=== PATIENT | female | born 1950 | race Caucasian/White ===

== ENCOUNTER → 2017-10-24 09:51 | Outpatient (CLI) | payer OTHER, SELFPAY ==
[2017-10-24 10:28] LABS: Absolute Lymphocyte Count 1.71 X10^3/ul (0.83-4.51); Absolute Neutrophil Count 3.2 X10^3/uL (2.0-7.7); Basophil# 0.02 X10^3/uL; Basophil% 0.4 % (0-1); Eosinophil# 0.17 X10^3/uL; Hematocrit 40.8 % (37-47); Hemoglobin 12.8 g/dl (12.0-15.0); Lymphocyte # 1.71 X10^3/ul (4.0); Lymphocyte % 30.6 % (19-41); Mean Corp Hgb Conc 31.4 g/gl (32-36); Mean Corpuscular Hgb 28.8 pg (27.0-32.0); Mean Corpuscular Volume 91.9 fL (81-99); Mean Platelet Vol. 10.8 fl (6.2-12.0); Monocyte# 0.46 X10^3/uL; Monocyte% 8.2 % (0-10); Neutrophil # 3.23 X10^3/uL (2.7-7.7); Neutrophil % 57.8 % (47-70); Platelet Count 219 K/mm3 (150-450); RBC Distribution Width CV 13.4 % (11.6-14.6); RBC Distribution Width SD 44.2 fl (35.1-43.9); Red Blood Count 4.44 M/mm3 (4.2-5.4); White Blood Count 5.6 K/mm3 (4.4-11.0)
[2017-10-24 10:42] LABS: POSITIVE COUNT NO; POSITIVE DIFFERENTIAL NO; POSITIVE MORPHOLOGY NO
[2017-10-24 10:55] LABS: ALB/GLOB Ratio 1.1 RATIO (0.9-2.4); AST(SGOT) 16 U/L (15-37); Alanine Aminotransfer ALT/SGPT 16 U/L (13-56); Albumin, Serum 3.6 g/dL (3.2-5.0); Alkaline Phosphatase 78 U/L (45-117); Anion Gap 5 (5-15); BUN 20 mg/dL (7-18); BUN/Creat Ratio 21.9 RATIO (10-20); Calcium,Total 8.6 mg/dL (8.5-10.1); Chloride 106 mmol/L (98-107); Creatinine, Serum 0.91 mg/dL (0.55-1.02); EST Glomerular Filtration Rate 65 mL/min (>60); Est Glom Filt Rate - Afr Amer 79 mL/min (>60); Globulin 3.3 g/dL (2.2-4.2); Glucose 94 mg/dL (74-106); Potassium 4.4 mmol/L (3.5-5.1); Protein, Total 6.9 g/dL (6.4-8.2); Sodium Level 140 mmol/L (136-145)
[2017-10-24 11:37] LABS: Vitamin D,25 Hydroxy 31.2 ng/mL (29.95-100.01)
[2017-10-25 04:15] LABS: Hepatitis C Ab <0.1 s/co ratio (0.0-0.9)
== END ==
PROVIDERS: Family Provider Internal Medicine; PCP Internal Medicine; Visit Provider Internal Medicine
DX: Z01.89 Encounter for other specified special examinations (principal); E55.9 Vitamin D deficiency, unspecified; Z79.899 Other long term (current) drug therapy
CPT/HCPCS: 36415; 80053; 82306; 85025; 86803; 86804

== ENCOUNTER 2017-11-26 12:10 | Inpatient (IN) | payer MEDICARE, OTHER, SELFPAY ==
[2017-11-26 12:11] VITALS: BP 163/75; PULSE 72; RESP 16; TEMP 36; O2SAT 98; BMI 25.0
--- NOTE | 2017-11-26 13:09 | CT_ITS ---
STUDY: CT ABDOMEN AND PELVIS WITH CONTRAST REASON FOR EXAM: Female, 67 years old. One week history of nausea, vomiting and diarrhea. RADIATION DOSAGE (If Supplied By Facility): CTDIvol = ( 13.80 ) mGy, DLP = ( 653.11 ) mGycm TECHNIQUE: Transaxial images were obtained from the dome of the diaphragm to the symphysis pubis without oral contrast. 100mL ml of Isovue 300 contrast was administered. Sagittal and coronal images were reconstructed. Individualized dose optimization techniques were used for this CT. COMPARISON: Comparison is made with prior study dated June 22, 2013. FINDINGS: Bilateral breast implants are seen. Stable mild degree of increased markings at the lung bases suggestive of scarring. The visualized portions of the heart are within normal limits. 1 cm cyst in the upper aspect of the right lobe of the liver posteriorly. Increased densities are seen in the gallbladder lumen. This may represent tiny gallstones or possible sludge. Normal spleen. Normal pancreas. Normal bilateral adrenal glands. Normal right kidney. Normal left kidney. Normal visualized stomach. Normal small intestine. There is evidence of circumferential wall thickening of the descending colon with increased markings in the surrounding peritoneal fat. This is suggestive of a colitis. The appendix is visualized and appears normal. There is diffuse atherosclerotic calcification of the abdominal aorta, without a demonstrated aneurysm. Normal inferior vena cava. Normal retroperitoneum. Normal urinary bladder. Evidence of prior right inguinal hernia repair. There are diffuse degenerative changes of the visualized lumbar spine. CT/Abdomen/Pelvis W IV Cont ONLY IMPRESSION: Findings suggest colitis involving the descending colon. Electronically Signed: Og Lin MD at 14:26 EDT Tel [phone], Service support ,
[2017-11-26] MEDS: Morphine 4 MG/ML Syringe IV ×3 (13:22→22:44)
[2017-11-26] MEDS: Ondansetron 4 MG/2 ML Vial IV ×2 (13:22→22:30)
[2017-11-26] MEDS: 0.9% Normal Saline 1,000 ML 1000 ML IV (13:22)
[2017-11-26 13:37] LABS: Absolute Neutrophil Count 5.5 X10^3/uL (2.0-7.7); Basophil# 0.01 X10^3/uL; Basophil% 0.1 % (0-1); Eosinophil# 0.11 X10^3/uL; Eosinophils% 1.5 % (0-5); Hematocrit 37.9 % (37-47); Hemoglobin 12.2 g/dl (12.0-15.0); Lymphocyte % 17.5 % (19-41); Mean Corp Hgb Conc 32.2 g/gl (32-36); Mean Corpuscular Hgb 28.8 pg (27.0-32.0); Mean Corpuscular Volume 89.6 fL (81-99); Mean Platelet Vol. 10.4 fl (6.2-12.0); Monocyte# 0.51 X10^3/uL; Monocyte% 6.9 % (0-10); Neutrophil # 5.48 X10^3/uL (2.7-7.7); Platelet Count 236 K/mm3 (150-450); RBC Distribution Width CV 13.2 % (11.6-14.6); RBC Distribution Width SD 43.3 fl (35.1-43.9); Red Blood Count 4.23 M/mm3 (4.2-5.4); White Blood Count 7.4 K/mm3 (4.4-11.0)
[2017-11-26 13:39] LABS: POSITIVE COUNT NO; POSITIVE DIFFERENTIAL NO; POSITIVE MORPHOLOGY NO
[2017-11-26 13:42] LABS: Lactic Acid 0.7 mmol/L (0.4-2.0)
[2017-11-26 13:43] LABS: ALB/GLOB Ratio 0.9 RATIO (0.9-2.4); AST(SGOT) 16 U/L (15-37); Alanine Aminotransfer ALT/SGPT 21 U/L (13-56); Albumin, Serum 3.4 g/dL (3.2-5.0); Alkaline Phosphatase 78 U/L (45-117); Anion Gap 4 (5-15); BUN 26 mg/dL (7-18); BUN/Creat Ratio 16.7 RATIO (10-20); Calcium,Total 9.2 mg/dL (8.5-10.1); Chloride 105 mmol/L (98-107); Creatinine, Serum 1.56 mg/dL (0.55-1.02); EST Glomerular Filtration Rate 35 mL/min (>60); Est Glom Filt Rate - Afr Amer 43 mL/min (>60); Estimated Creatinine Clearance 30.63 ml/min; Globulin 3.7 g/dL (2.2-4.2); Glucose 98 mg/dL (74-106); Potassium 4.9 mmol/L (3.5-5.1); Protein, Total 7.1 g/dL (6.4-8.2); Sodium Level 139 mmol/L (136-145)
[2017-11-26 14:14] LABS: Prothrombin Time (Protime)PT. 13.1 SECONDS (11.7-14.9)
--- NOTE | 2017-11-26 14:51 | PCM.HP.STD ---
Problem List (1) Colitis Status: Acute (2) personal history of left breast cancer Status: Chronic (3) Depression Status: Chronic Qualifiers: Depression Type: unspecified Qualified Code(s): F32.9 - Major depressive disorder, single episode, unspecified (4) Anxiety Status: Chronic (5) Urinary incontinence Status: Chronic Qualifiers: Urinary Incontinence type: unspecified incontinence Qualified Code(s): R32 - Unspecified urinary incontinence (6) Breast cancer Status: Chronic Qualifiers: Breast location: unspecified site of breast Estrogen receptor status: unspecified Patient sex: female Laterality: left Qualified Code(s): C50.912 - Malignant neoplasm of unspecified site of left female breast (7) Genital pruritus Status: Chronic (8) HTN (hypertension) Status: Chronic Qualifiers: Hypertension type: essential hypertension Qualified Code(s): I10 - Essential (primary) hypertension History of Present Illness Date of Admission: 11/26/17 Chief Complaint: Abdominal pain, N/V/D x 1 week w/ blood in stools/clots The patient is a 67 y/o F w/ PMHx: HTN, Hx L Breast CA s/p mastectomy and R prophylactic mastectomy w/ reconstruction, Anxiety and Depression, Chronic Headaches who presents to the [facility] ED on 11/26/17 with history of ongoing progressively worsening abdominal pain primarily R sided despite CT scan, nausea, emesis, poor oral intake w/ dark blood with stools and now onset frequent clots. She initially thought it was stress secondary to her niece recently passing until onset of maroon stools. She notes similar episode in 2012 with negative c-scope per Dr. Thao at that time. In the ED work-up included T 96.8, heart rate 72, BP 163/75, respiratory rate 16, 98% on room air, CBC with WBC 7.4, hemoglobin 12.2, platelet 236 without market shift, unremarkable coags, CMP with BUN/creatinine 26/1.56, CT abdomen and pelvis with findings suggestive of colitis involving the descending colon. In the emergency room patient administered normal saline, Zofran, morphine, Zosyn. 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 contour deformity superior pole left breast reconstruction personal history of left breast cancer (Chronic) Depression (Chronic) Anxiety (Chronic) Urinary incontinence (Chronic) Breast cancer (Chronic) Genital pruritus (Chronic) Family history of breast cancer (Chronic) late eff radiation lt lateral chest wall (Chronic) late effect radiation left lateral chest wall left lateral chest wall rib pain (Chronic) status dinesh breast implant reconstruction (Chronic) status bilateral breast implants reconstruction acquired absence bilateral breasts (Chronic) PROPHYLACTIC RIGHT BREAST REMOVAL (Chronic) late eff rad lt breast reconstruction (Chronic) late effect radiation left breast reconstruction disproportion reconstructed breasts (Chronic) disproportion reconstructed breasts bilaterally with right asymmetric inframammary fold and left radiation capsular contracture contour deformity superior pole. Allergies meperidine HCl [From Demerol] Allergy (Verified 11/26/17 12:14) Hives tamoxifen [Tamoxifen] Allergy (Verified 11/26/17 12:14) Hives hydrocodone bitartrate [From Vicodin] Adverse Reaction (Verified 11/26/17 12:14) Vomiting hylan G-F 20 [From Synvisc] Adverse Reaction (Verified 11/26/17 12:14) Swelling Home Medications: Ambulatory Orders Medication Instructions Recorded Citalopram Hydrobromide [Celexa] 10 mg PO DAILY 06/07/13 Duloxetine Hcl [Cymbalta] 20 mg PO DAILY 03/06/15 Lisinopril [Zestril] 10 mg PO DAILY 03/06/15 Metoprolol Tartrate [Lopressor 25 mg PO BID 03/06/15 (beta savannah)] fluticasone 50 mcg/actuation nasal 1 spray INTRANASAL DAILY 10/13/17 spray,suspension Docusate Sodium [Colace] 100 mg PO BID PRN PRN 11/26/17 Oxybutynin Chloride [Ditropan Xl] 10 mg PO DAILY 11/26/17 Oxycodone Myristate [Xtampza ER] 13.5 mg PO BID 11/26/17 Tizanidine HCl [Tizanidine HCl] 4 mg PO DAILY PRN PRN 11/26/17 Surgical History: - - Left breast mastectomy, prophylactic right breast mastectomy, reconstructive surgeries, several knee surgeries, I&D hematoma. Psychiatric History: Anxiety, Depression [employer] History: No pertinent [employer] history Lives: Spouse/ Significant Other Smoking Status: Former smoker - Quit 35 years prior. Tobacco Use: Non-smoker Alcohol: None Drugs: None - *Family History Maternal History Items: - - Maternal family history of uterine cancer and thyroid disease. Paternal History Items: No pertinent history Sibling History Items: - - Brother with history of alcoholism, sister with history of depression, thyroid disease and uterine cancer. Review of Systems Constitutional: Reports: Malaise, Weakness, Fatigue. Denies: Chills, Fever, Weight Change HEENT: Denies: Head Aches, Sinus Congestion, Sinus Drainage Cardiovascular: Denies: Chest Pain, Palpitations Respiratory: Denies: Cough, Shortness of breath at rest, Sputum production Gastrointestinal: Reports: Abdominal Pain, Diarrhea, Nausea, Vomiting, - - Dark red stools, clots. Genitourinary: Denies: Dysuria Musculoskeletal: Denies: Joint Pain, Joint Tenderness Skin: Denies: Rash, Wounds Neurological: Denies: Numbness, Tingling, Focal weakness Psychiatric: Reports: Anxiety, Depression. Denies: Homicidal Ideations, Suicidal Ideations Hematologic/ Lymphatic: Denies: Easy Bruising, Easy Bleeding VTE Information - Inpt Only VTE Present on Admission: No VTE Mechan Device Prophylaxis: SCD's VTE Pharm Prophylaxis ordered?: No Patient Problems: Active and Suspected Problems (Last Updated 10/13/17 @ 10:05 by Irene Ramirez) Colitis (Acute) Subjective: Seated upright in the ED bed, NAD, notes mild discomfort currently after pain regimen. Objective: Physical Examination: General: awake, alert, oriented x 3 and cooperative, seated upright in the ED bed in no apparent distress. Skin: normal color, turgor, no icterus, cyanosis. HEENT: AT/NC, EOMI, PERRLA, dry MM, no carotid bruits or JVD noted. Lungs: CTA bilaterally, moderate effort, mild decrease BL bases, no rales, ronchi or wheezing. Heart: Regular rate and rhythm; no gallop, rub audible. Abdomen: soft, mild diffuse, > R and LLQs, ND, hyperactive BS, no HSM. Extremities: no cyanosis, clubbing, or edema. Neurological: patient awake, alert, oriented x 3; cognitive function intact; pupils equally reactive to light and accomodation; cranial nerves II-XII grossly normal, moving all 4 extremities, no focal deficits, strength moderately globally decreased secondary to acute presentation. Psychiatric: affect appears normal, no acute evidence of depressive or anxiety feelings. - Physical Exam Vital Signs Temp Pulse Resp BP Pulse Ox 96.8 F L 72 16 163/75 H 98 11/26/17 12:11 11/26/17 12:11 11/26/17 12:11 11/26/17 12:11 11/26/17 12:11 Oxygen Delivery Method Room Air Weight: 145 lb 8.081 oz Body Mass Index (BMI) 25.0 Microbiology Past 72 Hours 11/26/17 13:05 Stool Occult Blood (KELLY) - Final Stool Occult Blood Positive Laboratory Tests Past 24 Hrs 11/26/17 11/26/17 11/26/17 13:07 13:07 13:07 WBC 7.4 RBC 4.23 Hgb 12.2 Hct 37.9 MCV 89.6 MCH 28.8 MCHC 32.2 RDW 13.2 RDW Differential 43.3 Plt Count 236 MPV 10.4 Immature Gran % (Auto) 0.000 Neut % (Auto) 74.0 H Lymph % (Auto) 17.5 L Curry % (Auto) 6.9 Eos % (Auto) 1.5 Baso % (Auto) 0.1 Absolute Neuts (auto) 5.5 Absolute Lymphs (auto) 1.30 Total Counted Not Reportable PT 13.1 INR 1.0 Sodium 139 Potassium 4.9 Chloride 105 Carbon Dioxide 30.0 Anion Gap 4 L BUN 26 H Creatinine 1.56 H Estim Creat Clear Calc 30.63 Est GFR (MDRD) Af Amer 43 L Est GFR (MDRD) Non-Af 35 L BUN/Creatinine Ratio 16.7 Glucose 98 Lactic Acid Calcium 9.2 Total Bilirubin 0.30 AST 16 ALT 21 Alkaline Phosphatase 78 Total Protein 7.1 Albumin 3.4 Globulin 3.7 Albumin/Globulin Ratio 0.9 Blood Type Antibody Screen 11/26/17 11/26/17 13:07 13:07 WBC RBC Hgb Hct MCV MCH MCHC RDW RDW Differential Plt Count MPV Immature Gran % (Auto) Neut % (Auto) Lymph % (Auto) Curry % (Auto) Eos % (Auto) Baso % (Auto) Absolute Neuts (auto) Absolute Lymphs (auto) Total Counted PT INR Sodium Potassium Chloride Carbon Dioxide Anion Gap BUN Creatinine Estim Creat Clear Calc Est GFR (MDRD) Af Amer Est GFR (MDRD) Non-Af BUN/Creatinine Ratio Glucose Lactic Acid 0.7 Calcium Total Bilirubin AST ALT Alkaline Phosphatase Total Protein Albumin Globulin Albumin/Globulin Ratio Blood Type A POSITIVE Antibody Screen NEGATIVE Assessment/Plan Active and Suspected Problems (Last Updated 10/13/17 @ 10:05 by Irene Ramirez) Colitis (Acute) The patient is a 67 y/o F w/ PMHx: HTN, Hx L Breast CA s/p mastectomy and R prophylactic mastectomy w/ reconstruction, Anxiety and Depression, Chronic Headaches who presents to the [facility] ED on 11/26/17 with history of ongoing progressively worsening abdominal pain primarily R sided despite CT scan, nausea, emesis, poor oral intake w/ dark blood with stools and now onset frequent clots. (1) Acute Descending Colon Colitis w/ Associated GI Bleeding: CT A/P w/ evidence of descending colon colitis. Will admit to [facility], maintain on aggressive hydration, monitor I&Os, maintain NPO status w/ bowel rest, treat with zosyn regimen, PPI, anti-emetics, pain regimen PRN. Consider diet advancement to clears in AM if clinically improved. (2) Acute kidney injury: Secondary to GI losses, poor oral intake. Admission BUN/Cr 26/1.56, prior baseline creatinine noted to be 0.9. Will hydrate, hold nephrotoxic medications and repeat chemistry in AM. If no improvement would plan FeNa assessment. (3) Hx L Breast CA: s/p L mastectomy and R prophylactic mastectomy w/ reconstruction, chronic pain associated w/ radiation. (4) Chronic Pain Syndrome: Maintain on home chronic oxycodone, tizanidine regimen. (5) Anxiety and Depression: She notes taking celexa only as needed and notes taking cymbalta daily. Discussed at length that this was not appropriate usage of this type of medication. She will discontinue PRN usage celexa, continue cymbalta only and if needed she may titrate up with her medical provider. (6) Hypertension: Continue home regimen including metoprolol, hold lisinopril, PRN hydralazine. (7) DVT Prophylaxis: SCDs, defer chemoprophylaxis given recent bloody stools with colitis. Code Visit Inpatient E&M: 64153 Init Hosp L3
--- NOTE | 2017-11-26 15:25 | CM.ED ---
Addendum entered by Loan Gonzalez 11/26/17 15:39: Attempted to assess. Hospitalist at bedside. Assessment not able to be completed at this time. Original Note: Attempted to perform initial assessment. Patient unavailable for interview at this time. Will re-attempt as time allows.
[2017-11-26 15:29] VITALS: BP 149/79; PULSE 71; RESP 14; O2SAT 97
[2017-11-26 15:32] VITALS: BMI 25.0
[2017-11-26 15:36] VITALS: BMI 25.2
--- NOTE | 2017-11-26 16:21 | ED.VISSUMM ---
- ER Visit Summary Date of Service: 11/26/17 Chief Complaint: GI bleed History of Present Illness: The patient is a 32 F who presents with nausea vomiting diarrhea and bloody stools. She became ill 5 days ago. She reports nausea and vomiting as well as diarrhea and loose stools. She initially thought that this may all be stress related. Her niece is recently . She has developed colored stools which have been worsening rather than improving. She reports large clots. The patient does have a prior history of GI bleed but maintained a stable hemoglobin and vital signs. She had a colonoscopy on that admission which was normal. She is not anticoagulated. There is not a family history of ulcerative colitis or Crohn's disease. Physical Examination: Afebrile vitals normal Moist mucous membranes Heart regular rate and rhythm Lungs are clear Abdomen soft nontender Rectal exam nontender with maroon stool Alert Test Results: Normal. Hepatic function INR lactic acid all normal. Hemoccult positive. BUN 26 and creatinine of 1.56 which was normal on prior labs. He of the abdomen and pelvis shows findings consistent with descending colitis. Emergency Department Course and Treatment: Although patient has no fever or leukocytosis given her nausea vomiting and diarrhea and inflammatory changes on CT she was treated with IV Zosyn. She has been given IV fluids. At this time she is hemodynamically stable. Patient will be discussed with hospitalist and admitted. Treatment Plan: [] Disposition: Admit Impression: Colitis Lower GI bleed Acute kidney injury This note was generated with [employer] dictation software. It may contain incorrect words, spelling, and punctuation that were not noted in review of the chart prior to signing ED Disposition - Plan for ED Patient: Disposition: Acute Care Hospital [facility] Chief Complaint: GI Bleed
[2017-11-26] MEDS: 0.9% Normal Saline 1,000 ML 999 ML IV (16:30)
[2017-11-26 16:51] LABS: Magnesium 1.8 mg/dL (1.6-2.6)
[2017-11-26] MEDS: 0.9% Normal Saline 1,000 ML 125 ML IV (17:32)
[2017-11-26 19:39] VITALS: BP 148/88; PULSE 73; RESP 18; TEMP 36.9; O2SAT 96
--- NOTE | 2017-11-26 19:41 | NURSING ---
vitals recorded at 194 were actually done @ 1615 w/ admission
[2017-11-26 20:00] VITALS: O2SAT 94
[2017-11-26] MEDS: Piperacil/Tazobactam 3.375 GM/50 ML ML IV (22:38)
[2017-11-26 22:44] VITALS: PULSE 79
[2017-11-26] MEDS: Metoprolol Tartrate 25 MG Tablet PO (22:44)
[2017-11-26 23:07] VITALS: BP 154/89; PULSE 79; RESP 16; TEMP 36.5; O2SAT 96
[2017-11-27] VITALS (7 sets, daily range): BP systolic 122–160; BP diastolic 75–92; PULSE 64–76; RESP 16–18; TEMP 36.8–37; O2SAT 91–98
[2017-11-27] MEDS: 0.9% Normal Saline 1,000 ML 125 ML IV ×2 (02:24→09:20)
[2017-11-27] MEDS: Morphine 4 MG/ML Syringe IV ×2 (05:35→15:49)
[2017-11-27] MEDS: proMETHazine 25 MG/ML Syringe 12.5 MG IV (05:35)
[2017-11-27] MEDS: Piperacil/Tazobactam 3.375 GM/50 ML ML IV (05:36)
[2017-11-27 06:17] LABS: Absolute Lymphocyte Count 1.27 X10^3/ul (0.83-4.51); Absolute Neutrophil Count 4.2 X10^3/uL (2.0-7.7); Basophil# 0.02 X10^3/uL; Basophil% 0.3 % (0-1); Eosinophil# 0.16 X10^3/uL; Eosinophils% 2.6 % (0-5); Hematocrit 34.4 % (37-47); Lymphocyte # 1.27 X10^3/ul (4.0); Lymphocyte % 20.5 % (19-41); Mean Corpuscular Hgb 29.3 pg (27.0-32.0); Mean Corpuscular Volume 91.7 fL (81-99); Mean Platelet Vol. 10.3 fl (6.2-12.0); Monocyte# 0.57 X10^3/uL; Monocyte% 9.2 % (0-10); Neutrophil # 4.19 X10^3/uL (2.7-7.7); Neutrophil % 67.4 % (47-70); Platelet Count 212 K/mm3 (150-450); RBC Distribution Width SD 42.6 fl (35.1-43.9); Red Blood Count 3.75 M/mm3 (4.2-5.4); White Blood Count 6.2 K/mm3 (4.4-11.0)
[2017-11-27 06:18] LABS: POSITIVE COUNT NO; POSITIVE DIFFERENTIAL NO; POSITIVE MORPHOLOGY NO
[2017-11-27 06:38] LABS: Anion Gap 7 (5-15); BUN 16 mg/dL (7-18); BUN/Creat Ratio 11.9 RATIO (10-20); Calcium,Total 8.1 mg/dL (8.5-10.1); Chloride 113 mmol/L (98-107); Creatinine, Serum 1.34 mg/dL (0.55-1.02); EST Glomerular Filtration Rate 42 mL/min (>60); Est Glom Filt Rate - Afr Amer 51 mL/min (>60); Estimated Creatinine Clearance 35.66 ml/min; Glucose 82 mg/dL (74-106); Potassium 4.3 mmol/L (3.5-5.1); Sodium Level 144 mmol/L (136-145)
[2017-11-27] MEDS: Tolterodine Tartrate 2 MG CAP.SA PO (09:36)
[2017-11-27] MEDS: Fluticasone 0.05% 1 SPRAY NASAL.SRY NASAL (09:36)
[2017-11-27] MEDS: DULoxetine Hcl 20 MG Capsule PO (09:36)
[2017-11-27] MEDS: Metoprolol Tartrate 25 MG Tablet PO ×2 (09:37→21:58)
[2017-11-27] MEDS: oxyCODONE CR 15 MG Tablet PO ×2 (09:38→21:58)
--- NOTE | 2017-11-27 11:54 | CASEMGMT ---
RN CM Assessment complete. DC PLAN: HOME -no needs identified @ this time. Obi LYN RN ACM
[2017-11-27] MEDS: Ondansetron 4 MG/2 ML Vial IV ×2 (13:33→21:55)
[2017-11-27] MEDS: levoFLOXacin IV 500 MG/100 ML BAG 100 MG IV (13:33)
--- NOTE | 2017-11-27 13:48 | PCM.PROGNOTE ---
Patient Problems: Active and Suspected Problems (Last Updated 10/13/17 @ 10:05 by Irene Ramirez) Colitis (Acute) Subjective: She is still having abdominal discomfort. No nausea, no fever. WBC is normal. No bowel movements today. - Physical Exam General: Alert, Oriented x3, Cooperative HEENT: Atraumatic, PERRLA Oral: Moist Mucosa, No Gingival or Mucosal Lesions/ Ulcerations Neck: Supple, No JVD Lungs: Clear to auscultation, Normal air movement, No rhonchi, No wheeze, No rales Cardiovascular: Regular rate, Regular Rhythm, Normal S1, Normal S2, No murmurs, No Ectopic Activity Abdomen: Bowel Sounds Present, Soft, Non-Distended, No Hepato-splenomegaly, Tender - Mid to left abdomen. Extremities: No clubbing, No cyanosis, No edema Skin: No rashes, No breakdown Musculoskeletal: No Tenderness to Palpation of Joints or Extremities, No Muscle Wasting Lymphatic: No Cervical, Supraclavicular, or Inguinal Adenopathy Neurological: Cranial nerves II-XII grossly intact, Neuro grossly intact Psych/Mental Status: Normal Affect Vital Signs Temp Pulse Resp BP Pulse Ox 98.3 F 73 16 144/81 H 98 11/27/17 10:30 11/27/17 10:30 11/27/17 10:30 11/27/17 10:30 11/27/17 10:30 Oxygen Delivery Method Room Air Weight: 147 lb 0.773 oz Body Mass Index (BMI) 25.2 Intake and Output for Last 24 Hours 11/25/17 11/26/17 11/27/17 23:59 23:59 23:59 Intake Total 1460 / 1460 2588 / 2588 Output Total 600 / 600 1800 / 1800 Balance 860 / 860 788 / 788 Laboratory Tests Past 24 Hrs 11/27/17 11/27/17 05:52 05:52 WBC 6.2 RBC 3.75 L Hgb 11.0 L Hct 34.4 L MCV 91.7 MCH 29.3 MCHC 32.0 RDW 13.0 RDW Differential 42.6 Plt Count 212 MPV 10.3 Immature Gran % (Auto) 0.000 Neut % (Auto) 67.4 Lymph % (Auto) 20.5 [place] % (Auto) 9.2 Eos % (Auto) 2.6 Baso % (Auto) 0.3 Absolute Neuts (auto) 4.2 Absolute Lymphs (auto) 1.27 Total Counted Not Reportable Sodium 144 Potassium 4.3 Chloride 113 H Carbon Dioxide 24.0 Anion Gap 7 BUN 16 Creatinine 1.34 H Estim Creat Clear Calc 35.66 Est GFR (MDRD) Af Amer 51 L Est GFR (MDRD) Non-Af 42 L BUN/Creatinine Ratio 11.9 Glucose 82 Calcium 8.1 L Diagnostic Data Abdomen/Pelvis CT 11/26/17 13:09 IMPRESSION: Findings suggest colitis involving the descending colon. Electronically Signed: Og Lin MD at 14:26 EDT Tel [phone], Service support , Medical Necessity - Tobacco Use Smoking Status: Former smoker - Quit 35 years prior. Tobacco Use: Non-smoker Assessment/Plan Active and Suspected Problems (Last Updated 10/13/17 @ 10:05 by Irene Ramirez) Colitis (Acute) Patient is a 67 years old female who presents with abdominal pain and diarrhea, admitted on 11/26/17. She has one week history of diarrhea up to 4 to 5 times a day with abdominal cramping. She had nausea and vomiting in the beginning, which has subsided. She has decreased appetite. One day prior to admission, she had an episode of melena with maroon color stool, followed by passing small chunks of blood clots. WBC is normal at 7.4 in ED, with stable appearing Hgb at 12.2. CT of abdomen was suggestive of inflammation of descending colon, suggestive of colitis. #1 Acute colitis. Likely due to infectious origin. Lactic acid is normal at 0.7, makes less likely for ischemic colitis. She was started on Zosyn empirically, changed to Levaquin 250 mg IV daily adjusted for renal function. (11/27). Enteric pathogen panel, c. diff toxin, and stool culture with shigella toxin ordered. IVF support. Advance diet as tolerated. #2 CHICHI. Creatinine on admission was 1.56, baseline is normal. IVF as above. Monitor BMP. #3 Essential hypertension. Blood pressure is adequate. Continue current medications. #4 Chronic pain syndrome. Continue home regimen of oxycodone, tizanidine. #5 History of breast carcinoma. VTE prophylaxis: SCD only for GI bleed. GI prophylaxis: PPI iv. She is full code. Disposition: home in 2 to 3 days. Code Visit Inpatient E&M: 61363 Subs Hosp L2
[2017-11-27] MEDS: Dext 5%-0.45% NS 1,000 ML 125 ML IV ×2 (14:21→21:58)
[2017-11-27] MEDS: Acetaminophen 325 MG Tablet 650 MG PO (14:21)
[2017-11-27] MEDS: 0.9% NaCl Peripheral Flush Adult/Peds IV (21:55)
[2017-11-27] MEDS: oxyCODONE 5 MG Tablet 10 MG PO (21:58)
[2017-11-28 03:51] VITALS: BP 140/87; PULSE 63; RESP 18; TEMP 36.6; O2SAT 98
[2017-11-28] MEDS: oxyCODONE 5 MG Tablet 10 MG PO (03:57)
[2017-11-28 06:09] LABS: Hematocrit 34.4 % (37-47); Mean Corpuscular Hgb 29.5 pg (27.0-32.0); Mean Corpuscular Volume 92.2 fL (81-99); Mean Platelet Vol. 10.2 fl (6.2-12.0); Platelet Count 228 K/mm3 (150-450); RBC Distribution Width CV 12.5 % (11.6-14.6); RBC Distribution Width SD 40.8 fl (35.1-43.9); Red Blood Count 3.73 M/mm3 (4.2-5.4); White Blood Count 7.2 K/mm3 (4.4-11.0)
[2017-11-28 06:11] LABS: Scan Indicated on CBC? Y/N NO
[2017-11-28 06:18] LABS: Anion Gap 6 (5-15); BUN 9 mg/dL (7-18); BUN/Creat Ratio 8.2 RATIO (10-20); Calcium,Total 8.3 mg/dL (8.5-10.1); Chloride 110 mmol/L (98-107); EST Glomerular Filtration Rate 53 mL/min (>60); Est Glom Filt Rate - Afr Amer 64 mL/min (>60); Estimated Creatinine Clearance 43.44 ml/min; Glucose 119 mg/dL (74-106); Potassium 3.8 mmol/L (3.5-5.1); Sodium Level 142 mmol/L (136-145)
[2017-11-28] MEDS: Dext 5%-0.45% NS 1,000 ML 125 ML IV (06:29)
[2017-11-28] MEDS: proMETHazine 25 MG/ML Syringe 12.5 MG IV (07:34)
[2017-11-28 08:02] VITALS: O2SAT 98
[2017-11-28 09:50] VITALS: BP 149/77; PULSE 78; RESP 16; TEMP 36.5; O2SAT 94
[2017-11-28] MEDS: Fluticasone 0.05% 1 SPRAY NASAL.SRY NASAL (10:05)
[2017-11-28] MEDS: Tolterodine Tartrate 2 MG CAP.SA PO (10:06)
[2017-11-28] MEDS: tiZANidine HCl 2 MG Tablet 4 MG PO (10:06)
[2017-11-28] MEDS: DULoxetine Hcl 20 MG Capsule PO (10:06)
[2017-11-28] MEDS: oxyCODONE CR 15 MG Tablet PO (10:14)
[2017-11-28 10:18] VITALS: PULSE 78
[2017-11-28] MEDS: Metoprolol Tartrate 25 MG Tablet PO (10:18)
[2017-11-28] MEDS: levoFLOXacin IV 250 MG/50 ML BAG 50 MG IV (10:30)
--- NOTE | 2017-11-28 13:21 | PCM.DC ---
- Discharge Diagnoses Current Active Problems: Current Active and Chronic Problems (Last Updated 10/13/17 @ 10:05 by Irene Ramirez) Colitis (Acute) HTN (hypertension) (Chronic) You will use the following diet at home:: Cardiac Your food should be the consistency of: Regular Your liquids should be the consistency of: Regular/Thin Discharge Activity: Return to Normal Activity Allergies/Adverse Reactions: Allergies meperidine HCl [From Demerol] Allergy (Verified 11/26/17 12:14) Hives tamoxifen [Tamoxifen] Allergy (Verified 11/26/17 12:14) Hives hydrocodone bitartrate [From Vicodin] Adverse Reaction (Verified 11/26/17 12:14) Vomiting hylan G-F 20 [From Synvisc] Adverse Reaction (Verified 11/26/17 12:14) Swelling Medications to take at Discharge Citalopram Hydrobromide [Celexa] 10 mg PO DAILY 06/07/13 Duloxetine Hcl [Cymbalta] 20 mg PO DAILY 03/06/15 Lisinopril [Zestril] 10 mg PO DAILY 03/06/15 Metoprolol Tartrate [Lopressor (beta savannah)] 25 mg PO BID 03/06/15 fluticasone 50 mcg/actuation nasal spray,suspension 1 spray INTRANASAL DAILY 10/13/17 Docusate Sodium [Colace] 100 mg PO BID PRN PRN 11/26/17 Oxybutynin Chloride [Ditropan Xl] 10 mg PO DAILY 11/26/17 Oxycodone Myristate [Xtampza ER] 13.5 mg PO BID 11/26/17 Tizanidine HCl 4 mg PO DAILY PRN PRN 11/26/17 Ondansetron [Zofran Odt] 4 mg PO Q8H PRN #10 tab.rapdis 11/28/17 levoFLOXacin tablet [Levaquin tablet] 500 mg PO DAILY #7 tab 11/28/17 The following prescriptions were given: levoFLOXacin tablet [Levaquin tablet] 500 mg PO DAILY #7 tab Ondansetron [Zofran Odt] 4 mg PO Q8H PRN #10 tab.rapdis PRN Reason: Nausea Primary Care Physician: Lexie Chapman MD [Primary Care Provider] - Please follow up with your Primary Care Physician in: 5 to 7 days
--- NOTE | 2017-11-28 13:22 | PCM.DC.SUM ---
Discharge Date and Diagnosis - Problem List Patient Problems: Active and Suspected Problems (Last Updated 10/13/17 @ 10:05 by Irene Ramirez) Colitis (Acute) Date of Admission: 11/26/17 Date of Discharge: 11/28/17 - Primary Discharge Diagnosis Active and Suspected Problems (Last Updated 10/13/17 @ 10:05 by Irene Ramirez) Colitis (Acute) - Secondary Discharge Diagnosis Chronic Problems (Last Updated 10/13/17 @ 10:05 by Irene Ramirez) HTN (hypertension) (Chronic) radiation capsular contracture lt breast (Chronic) painful radiation capsular contracture contour deformity superior pole left breast reconstruction personal history of left breast cancer (Chronic) Depression (Chronic) Anxiety (Chronic) Urinary incontinence (Chronic) Breast cancer (Chronic) Hospital Course and Treatment Imaging Results: Diagnostic Data Abdomen/Pelvis CT 11/26/17 13:09 IMPRESSION: Findings suggest colitis involving the descending colon. Electronically Signed: Og Lin MD at 14:26 EDT Tel [phone], Service support , CASH REGISTER OPERATOR: None. Operations: None Procedures: None Summary of Care Provided: Patient is a 67 years old female who presents with abdominal pain and diarrhea, admitted on 11/26/17. She has one week history of diarrhea up to 4 to 5 times a day with abdominal cramping. She had nausea and vomiting in the beginning, which has subsided. She has decreased appetite. One day prior to admission, she had an episode of melena with maroon color stool, followed by passing small chunks of blood clots. WBC is normal at 7.4 in ED, with stable appearing Hgb at 12.2. CT of abdomen was suggestive of inflammation of descending colon, suggestive of colitis. #1 Acute colitis. Likely due to infectious origin. Lactic acid is normal at 0.7, makes less likely for ischemic colitis. She was started on Zosyn empirically, changed to Levaquin 250 mg IV daily adjusted for renal function. (11/27). Enteric pathogen panel, c. diff toxin, and stool culture with shigella toxin ordered, but she did not have any more episode of bowel movements. IVF support. Diet advanced to regular and she tolerated well. However, she had one ?bloody stool soon after. She did not save the stool. She reports it was much less than what it was. She was feeling well otherwise, with minimal abdominal discomfort which has been improving. Plan to discharge to home with Levaquin 500 mg op qd for 7 days. If she continues to have problems, she will need GI consult for possible endoscopy. Otherwise, her condition likely to improve with antibiotic therapy. #2 CHICHI. Creatinine on admission was 1.56, baseline is normal. Normalized. IVF as above. Monitor BMP. #3 Essential hypertension. Blood pressure is adequate. Continue current medications. #4 Chronic pain syndrome. Continue home regimen of oxycodone, tizanidine. #5 History of breast carcinoma. VTE prophylaxis: SCD only for GI bleed. GI prophylaxis: PPI iv. She is full code. Disposition: home Discharge Diet: - - Cardiac Discharge Activity: Return to Normal Activity Home Medications: Medications to take at Discharge Citalopram Hydrobromide [Celexa] 10 mg PO DAILY 06/07/13 Duloxetine Hcl [Cymbalta] 20 mg PO DAILY 03/06/15 Lisinopril [Zestril] 10 mg PO DAILY 03/06/15 Metoprolol Tartrate [Lopressor (beta savannah)] 25 mg PO BID 03/06/15 fluticasone 50 mcg/actuation nasal spray,suspension 1 spray INTRANASAL DAILY 10/13/17 Docusate Sodium [Colace] 100 mg PO BID PRN PRN 11/26/17 Oxybutynin Chloride [Ditropan Xl] 10 mg PO DAILY 11/26/17 Oxycodone Myristate [Xtampza ER] 13.5 mg PO BID 11/26/17 Tizanidine HCl 4 mg PO DAILY PRN PRN 11/26/17 Ondansetron [Zofran Odt] 4 mg PO Q8H PRN #10 tab.rapdis 11/28/17 levoFLOXacin tablet [Levaquin tablet] 500 mg PO DAILY #7 tab 11/28/17 Following Prescrptions Were Given to Patient: levoFLOXacin tablet [Levaquin tablet] 500 mg PO DAILY #7 tab Ondansetron [Zofran Odt] 4 mg PO Q8H PRN #10 tab.rapdis PRN Reason: Nausea Primary Care Physician: Lexie Chapman MD [Primary Care Provider] - Please follow up with your Primary Care Physician in: 5 to 7 days Disposition: Home Patient Condition:: Stable Medical Necessity - Tobacco Use Smoking Status: Former smoker - Quit 35 years prior. Tobacco Use: Non-smoker Meaningful Use Info Meaningful Use Diagnoses (Choose all that apply): None applicable Code Visit Inpatient E&M: 60559 Disch Hosp
[2017-11-28 14:13] VITALS: BP 134/81; PULSE 82; RESP 18; TEMP 36.3; O2SAT 94
--- NOTE | 2017-12-05 14:03 | CASEMGMT ---
RN DARÍO DC phone call note. Intro role of CM to patient. she states she is doing well, no concerns. no questions re: prescriptions, follow-up or dc instructions. Has appointment to see physician, and symptoms are daily improving. JESSICA CHANEL thanked her for using [facility]. No suggestions @ this time. Asim YAP RN ACM
== END 2017-11-28 14:35 | disposition home or self-care (01) | DRG 392 ==
LOC: ED 13:28 → MS2 15:33
PROVIDERS: Admitting Provider Family Medicine; Emergency Provider Emergency Medicine; Family Provider Internal Medicine; PCP Internal Medicine; Visit Provider Hospitalist
DX: A09 Infectious gastroenteritis and colitis, unspecified (principal); N17.9 Acute kidney failure, unspecified; I10 Essential (primary) hypertension; G89.4 Chronic pain syndrome; F32.9 Major depressive disorder, single episode, unspecified; N65.1 Disproportion of reconstructed breast; F41.9 Anxiety disorder, unspecified; R32 Unspecified urinary incontinence; Z85.3 Personal history of malignant neoplasm of breast; Z87.891 Personal history of nicotine dependence; Z79.899 Other long term (current) drug therapy; Z90.11 Acquired absence of right breast and nipple
CPT/HCPCS: 36415; 74177; 80048; 80053; 82274; 83605; 83735; 85025; 85027; 85610; 86850; 86900; 99282; J7030; J7050; Q9967; A4216; J2405; J7799

== ENCOUNTER → 2017-12-04 14:43 | Outpatient (CLI) | payer OTHER, MEDICARE, SELFPAY ==
[2017-12-04 15:59] LABS: Absolute Lymphocyte Count 1.62 X10^3/ul (0.83-4.51); Absolute Neutrophil Count 5.8 X10^3/uL (2.0-7.7); Basophil# 0.02 X10^3/uL; Basophil% 0.3 % (0-1); Eosinophil# 0.11 X10^3/uL; Eosinophils% 1.4 % (0-5); Hematocrit 38.3 % (37-47); Hemoglobin 12.1 g/dl (12.0-15.0); Lymphocyte # 1.62 X10^3/ul (4.0); Lymphocyte % 20.5 % (19-41); Mean Corp Hgb Conc 31.6 g/gl (32-36); Mean Corpuscular Hgb 28.3 pg (27.0-32.0); Mean Corpuscular Volume 89.7 fL (81-99); Mean Platelet Vol. 10.6 fl (6.2-12.0); Monocyte% 5.1 % (0-10); Neutrophil # 5.76 X10^3/uL (2.7-7.7); Neutrophil % 72.6 % (47-70); Platelet Count 315 K/mm3 (150-450); RBC Distribution Width CV 13.2 % (11.6-14.6); RBC Distribution Width SD 42.9 fl (35.1-43.9); Red Blood Count 4.27 M/mm3 (4.2-5.4); White Blood Count 7.9 K/mm3 (4.4-11.0)
[2017-12-04 16:14] LABS: POSITIVE COUNT NO; POSITIVE DIFFERENTIAL NO; POSITIVE MORPHOLOGY NO
== END ==
PROVIDERS: Family Provider Internal Medicine; PCP Internal Medicine; Visit Provider Nurse Practitioner
DX: K52.9 Noninfective gastroenteritis and colitis, unspecified (principal); K62.5 Hemorrhage of anus and rectum
CPT/HCPCS: 36415; 85025

== ENCOUNTER 2018-02-02 11:43 | Day surgery (SDC) | payer OTHER, SELFPAY ==
--- NOTE | 2018-02-02 11:52 | HP.PCM_ITS ---
History and Physical Date of Admission: 02/02/18 Deborah Seo a 67 year old female who is a consultation requested by Sonia Dodson NP,~for an opinion regarding rectal bleeding. ~My final recommendations will be communicated back to the requesting provider by way of shared Medical record. The patient has~been seen previously. The patient reports~a family~ history of colon cancer in that two sisters had the disease. ? The patient was seen by Harmonyon 12/02/17, leading to this consultation. ~That note has been reviewed and part as follows: Reason for visit: abdominal pain and diarrhea with nausea and vomiting initially x 1 week. One day prior to admission developed episodes of rectal bleeding and maroon stools. Which facility: [facility] Date of visit: 11/26 to 11/28 Diagnosis: acute colitis likely infectious, CHICHI due to dehydration Testing done: Stool cultures including C-diff negative. CT abdomen/pelvis- colitis of descending colon. hgb 12.0 on admission, 11.0 at discharge. Treatment given: IV antibiotics. Discharged home with prescription for Levaquin. Recommended GI consult if GI problems continued Patient has never had colonoscopy, yearly fecal blood screening ordered but not done Current symptoms: patient still feels tired but otherwise doing well. No further rectal bleeding or bloody stools. Had normal BM today. No black/tarry stools. Denies abdominal pain, nausea, vomiting. Appetite is better, just not sure what she can and can't eat. No dizziness, lightheadedness, syncope. Last colonoscopy was 2012, patient was told she should have done every 3 years. ? ? Presenting complaint:~The patient presents today reporting when I started I actually thought I had the flu. I have the nausea, vomiting, and diarrhea. ~ She also thought it might be stress related, as family members were ill and even passed, during this time. ~Went to the ED on day 5. ~She recalls getting heartburn a few days before onset of the above symptoms. ? Having a bowel movement daily. ~She tells me that there was a couple days that she didn't have a bowel movement. ~Now back to normal. ~No further blood or rectal bleeding. ~No abdominal pain. ? Last 6 Encounter Wt Readings: ~~~Date: ~~~~~~~Wt: ~~~12/04/2017 ~~67.6 kg (149 lb) ~~~12/02/2017 ~~68.5 kg (151 lb) ~~~10/30/2017 ~~66.7 kg (147 lb) ~~~04/22/2017 ~~64 kg (141 lb) ~~~10/15/2016 ~~63 kg (139 lb) ~~~08/28/2016 ~~61.7 kg (136 lb) ? ? REVIEW OF SYSTEMS: GENERAL: No weight loss, malaise or fevers RESPIRATORY: Negative for cough, hemoptysis, wheezing, COPD, dyspnea or shortness of breath CARDIOVASCULAR: Negative for chest pain, leg swelling, hypertension, CHF or palpitations GI: The patient states that her appetite has been adequate. She is watching to avoid anything spicy. ~She does~get hungry. There has been no further~nausea, no ~vomiting. She denies~dysphagia and denies~odynophagia. There has partially~ been indigestion with~heartburn. There has not~been regurgitation. Bowel habits have been irregular. There has ~been diarrhea. There has not~been constipation. The patient admits to~rectal bleeding. There has not~been melena. No abdominal pain. COUNTY RECORDS MANAGEMENT OFFICER: Negative for abnormal vaginal bleeding, abnormal vaginal discharge. HEMATOLOGY/LYMPHOLOGY Negative for prolonged bleeding, bruising easily or swollen nodes ENDOCRINE: Negative for diabetes or thyroid. 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 ~Sees pain management. ~~No history of headaches, syncope, paralysis, seizures or tremors All other reviewed and negative other than HPI. ? ? PAST?MEDICAL?HISTORY PAST MEDICAL HISTORY Diagnosis Date ? Breast cancer (HCC) 05/09/2010 ? Left 2010. Rt mastectomy 2012 for preventative. ? Cataracts, bilateral ? ? Dr. Mendoza ? Malignant neoplasm of breast (female), unspecified site ? ? S/P mastectomy, bilateral 07/02/2013 ? Solitary cyst of breast 1979 ? left ? Vitamin D deficiency ? ? PAST?SURGICAL?HISTORY PAST SURGICAL HISTORY Procedure Laterality Date ? BREAST BIOPSY CORE ? 05/03/2010 ? left breast ? COLONOSCOP W/ OR W/O BRSH SPEC ? 01/20/2007 ? normal screening colonscopy ? COLONOSCOP W/ OR W/O BRSH SPEC ? 06/25/2013 ? Colonoscopy ? L'SCOPE DX W/WO BRUSHINGS/WASHINGS ? ? ? Laparoscopy ? MASTECTOMY, RADICAL ? 07/11/2010 ? Left Breast ? PAST SURGICAL HISTORY OF ? ? ? 11 [facility]IES-[facility] ? PAST SURGICAL HISTORY OF ? 11/16/12 ? Prophylactic right mastectomy with reconstruction ? PAST SURGICAL HISTORY OF ? 03/2015 ? -reconstructive breast surgery ? S BREAST AUTOMOTIVE ALIGNMENT SPECIALIST [id number] ? 07/11/2010 ? Left Breast ? SIGMOIDOSCOPY FLEX DIAG ? 06/24/13 ? Sigmoidoscopy, flexible ~[facility] inpt attempted scope ? FAMILY?HISTORY FAMILY HISTORY Problem Relation Age of Onset ? Cancer Father ? ? ? bone cancer ? Colon Cancer Sister ? ? ? Age 65 ? Breast Cancer Mother ? ? ? diagnosed at age 58 ? Cancer Sister ? ? ? lung cancer ? Cancer Sister ? ? ? lymphoma ? Cancer Brother ? ? ? throat cancer ? CURRENT?MEDICATIONS ? Current Outpatient Prescriptions: DULoxetine (CYMBALTA) 20 mg capsule Take 1 capsule by mouth once daily. Disp: 30 capsule Rfl: 5 lisinopril (ZESTRIL) 10 mg tablet Take 1 tablet by mouth once daily. Disp: 30 tablet Rfl: 11 citalopram hydrobromide (CELEXA) 10 mg tablet Take 1 tablet by mouth once daily. Take with Cymbalta Disp: 30 tablet Rfl: 11 fluticasone (FLONASE) 50 mcg/actuation nasal spray Use 2 Sprays in each nostril once daily. Disp: 1 Bottle Rfl: 11 oxyCODONE myristate (XTAMPZA ER) 13.5 mg CSpT Take 2 Each by mouth once daily. Dr. Cedeño Fill Date: 10/30/17 Disp: Rfl: oxybutynin ER (DITROPAN XL) 10 mg 24 hr tablet Take 1 tablet by mouth once daily. Disp: 30 tablet Rfl: 11 metoprolol tartrate, short acting, (LOPRESSOR) 50 mg tablet Take 0.5-1 tablets by mouth twice daily. Disp: 60 tablet Rfl: 11 COMPOUNDED PRESCRIPTION Lab order: ~CMP, CBC with platelet, Vitamin D25OH, Hep C antibody with reflex confirmatory test. Diagnoses: ~(Z01.89) Laboratory procedure ~(primary encounter diagnosis); (E55.9) Vitamin D deficiency;(Z79.899) Encounter for long- term current use of medication Disp: 1 Each Rfl: 0 COMPOUNDED PRESCRIPTION Lab order: ~UA with microscopic, Urine Culture ~~Diagnoses: N32.89, R39.15 Disp: 1 Each Rfl: 0 COMPOUNDED PRESCRIPTION Lab draw: ~~BMP, magnesium, vitamin D25OH ~~diagnosis: (E55.9) Vitamin D deficiency (R25.2) Muscle cramping, Z79.899 Disp: 1 Each Rfl: 0 docusate sodium (COLACE) 100 mg capsule Take 1 capsule by mouth twice daily as needed for Constipation. Disp: 60 capsule Rfl: 11 calcium carbonate-Vit D3-minerals 600 mg calcium- 400 unit Tab Take 1 tablet by mouth twice daily. Disp: Rfl: LACTOBACILLUS ACIDOPHILUS (PROBIOTIC ORAL) Take 1 capsule by mouth twice daily. Disp: Rfl: ? No current facility-administered medications for this visit. ? ? SOCIAL HISTORY: Patient is . She quit smoking thirty-eight~years ago and~reports her alcohol use as very rarely. ? ~ PHYSICAL EXAMINATION: Blood pressure 137/83, pulse 74, height 162.6 cm (5' 4), weight 67.6 kg (149 lb ). General Appearance: Well appearing, alert, in no acute distress, well-hydrated, well nourished. Skin: Skin color, texture, turgor normal, no suspicious rashes or lesions. Head: Normocephalic, no masses, lesions or abnormalities. Eyes: Anicteric sclera. Oropharynx: Lips, mucosa, and tongue normal, oropharynx normal. Neck: Supple, no adenopathy; thyroid symmetric, normal size. Lungs: Lungs clear to auscultation. No wheezing, rhonchi, rales. Heart: RRR without murmur. Abdomen: Abdomen soft, non-tender. Bowel sounds normal. No masses, organomegaly. Musculoskeletal: No joint swelling, deformity, or tenderness. Peripheral Pulses: Normal. Neurologic: Gait normal. Sensation grossly intact. ? ? Impression: altered bowel habits ~2)rectal bleeding ? ? Plan: This patient will be scheduled for a colonoscopy with MAC. ~She as requested Dr. Molina. She will be~using [employer]~as the prep. ~The preparation , as well as the procedure, has been explained in detail. The risks, benefits, anticipated outcomes and possible complications were mentioned. I explained the procedure in understandable terms and the patient was given printed material concerning the planned procedure. The patient had the opportunity to ask questions concerning the planned procedure. The patient freely consents to the planned procedure. ~~~ ? The patient is asked to call with any questions for concerns, or should there be any change in health status between now and the scheduled procedure. ~ ? I have personally interviewed and examined this patient. I have read the information the MA~documented in this encounter. This visit was at least 30~ minutes of face to face time,~with a majority of the time spent in review of the past records with the patient, discussion and counseling. ? Deborah Oscar RN REINSPECTOR.EVAPORATOR REPAIRER
[2018-02-02 12:14] VITALS: BP 145/90; PULSE 69; RESP 18; TEMP 36.4; O2SAT 100; BMI 23.8
--- NOTE | 2018-02-02 12:45 | COLBX_PTH ---
PATIENT: PATTI CARRERA LOC: EN U#:[id number] AGE/SX: 67/F ROOM: RE02/02/[address]: Dr. Alexis Molina MD : 1950 BED: DIS: 02/02/2018 SPEC #: [id number] RECD: 02/02/18 14:21 STATUS: THI REIrlanda #: [id number] KATLIN: 02/02/18 12:[address]: Alexis Molina DEPT: SURGICAL PATHOLOGY RECD BY: Emiliano Mack ENTERED: 02/03/18 07:37 SP TYPE: COLON BX RIAN DR: Dr. Lexie Chapman MD Tissues: A - Descending colon B - Sigmoid colon biopsy Procedures: Surgery Specimen Level IV HEADER OPERATION: Colonoscopy (MAC) PRE-OP DIAGNOSIS: History of colitis descending colon TISSUE SUBMITTED: A ? Biopsy descending colon, B ? Biopsy sigmoid colon MICROSCOPIC DIAGNOSIS A. Descending colon, biopsy: A fragment of colonic mucosa, no pathologic diagnosis. B. Sigmoid colon, biopsy: A fragment of colonic mucosa, no pathologic diagnosis. EDUARDO:gertrude 02/04/18 MICROSCOPIC DESCRIPTION Slides are reviewed. GROSS DESCRIPTION A - Received in fixative is one container labeled with the patient's name and designated biopsy descending colon. The specimen consists of one irregular fragment of light edmonds soft tissue that measures 0.3 x 0.3 x 0.1 cm. The specimen is totally submitted in one cassette. B - Received in fixative is one container labeled with the patient's name and designated biopsy sigmoid colon. The specimen consists of one irregular fragment of light edmonds soft tissue that measures 0.3 x 0.3 x 0.1 cm. The specimen is totally submitted in one cassette. / EDUARDO:gertrude 02/03/18 TC:4 [facility]: [id number] x2
--- NOTE | 2018-02-02 13:13 | PCM.OPRPT ---
Report of Operation Date of Procedure: 02/02/18 Pre-Operative Diagnosis: colitis Post-Operative Diagnosis: normal colonoscopy Surgery/Procedure Performed:: colonoscopy with biopsy water hauler: None Type of Anesthesia:: MAC Anesthesiologist: Branden Ramirez - asa2 Specimen's removed: descending colon, sigmoid colon Description of Procedure: The patient was brought to the endoscopy suite. Sign in was performed verifying patient, site, planned procedure, critical nursing information, the patient was monitored with cardiac, pulse oximetric, and blood pressure monitoring devices. Monitored anesthetic care was provided for sedation. Following IV sedation, the patient was positioned for colonoscopy. A digital rectal exam was performed which revealed no palpable abnormalities The video colonoscope was inserted and advanced to the cecum as verified by the ileocecal valve, cecal base anatomic features and palpation. the cecum, ascending colon, hepatic flexure, transverse colon and splenic flexure all were unremarkable. The descending colon which was the area apparently involved with inflammation on CT scan and may appeared unremarkable. A biopsy is obtained at this area. As the scope was withdrawn. The remainder of the descending colon, sigmoid colon appeared unremarkable. A biopsy is obtained in the mid sigmoid colon. The rectosigmoid area was unremarkable. The scope was retroflexed and this was unremarkable.. The patient tolerated the procedure well and was brought to recovery in stable condition. the patient is instructed to follow-up with my physician's assistant men's lacrosse coach Elizabeth Nunez in 1 week for biopsy results.
[2018-02-02 13:18] VITALS: BP 124/68; BP 145/90; PULSE 66; RESP 16; TEMP 36.1; O2SAT 100
[2018-02-02 13:23] VITALS: BP 128/74; BP 145/90; PULSE 63; RESP 14; O2SAT 100
[2018-02-02 13:28] VITALS: BP 121/88; BP 145/90; PULSE 71; RESP 16; O2SAT 100
[2018-02-02 13:33] VITALS: BP 145/79; BP 145/90; PULSE 65; RESP 16; TEMP 36; O2SAT 100
[2018-02-02 14:00] VITALS: BP 145/90
== END 2018-02-02 14:01 | disposition home or self-care (01) ==
LOC: EN 11:44 → AC 11:45
PROVIDERS: Family Provider Internal Medicine; PCP Internal Medicine; Visit Provider Surgery
PROC: 0DJD8ZZ Inspection of Lower Intestinal Tract, Via Natural or Artificial Opening Endoscopic (ICD-10-PCS; CPT 45378; principal; 2018-02-02 12:40)
DX: K52.9 Noninfective gastroenteritis and colitis, unspecified (principal); K62.5 Hemorrhage of anus and rectum; R19.4 Change in bowel habit; Z80.0 Family history of malignant neoplasm of digestive organs; I10 Essential (primary) hypertension; F41.9 Anxiety disorder, unspecified; M50.30 Other cervical disc degeneration, unspecified cervical region; Z85.3 Personal history of malignant neoplasm of breast; Z79.899 Other long term (current) drug therapy; Z87.891 Personal history of nicotine dependence
CPT/HCPCS: 45380; 88305; J7120; J2405

== ENCOUNTER 2018-05-23 14:21 | Observation (INO) | payer OTHER, SELFPAY ==
--- NOTE | 2018-05-18 15:20 | RAD_ITS ---
STUDY: X-RAY CHEST REASON FOR EXAM: Female, 67 years old. Preoperative evaluation. TECHNIQUE: PA and lateral views of the chest. COMPARISON: None. FINDINGS: Dense bilateral breast tissue most likely secondary to breast reconstruction. Hyperinflation. Scattered calcified granulomas. There is no demonstrated pleural abnormality. Normal size heart. Normal mediastinum and homero. Normal visualized pulmonary arteries. Normal visualized aortic arch and descending thoracic aorta. There are degenerative changes of the visualized thoracic spine. Normal visualized ribs, clavicles, and shoulders. There is no demonstrated abnormality of the visualized soft tissue structures of the upper abdomen. RAD/Chest PA and Lateral IMPRESSION: Hyperinflation. The lungs are clear. Electronically Signed: Og Lin MD at 15:46 EST Tel [phone], Service support ,
--- NOTE | 2018-05-18 15:51 | EKG12_ITS ---
Test Reason : PREOP Blood Pressure : / mmHG Vent. Rate : 066 BPM Atrial Rate : 066 BPM P-R Int : 116 ms QRS Dur : 076 ms QT Int : 360 ms P-R-T Axes : 043 065 067 degrees QTc Int : 377 ms Normal sinus rhythm Nonspecific ST abnormality Abnormal ECG Confirmed by YAIR STANTON, YASMANY ([id number]), movie editor TILA ALEMAN ([id number]) on 05/19/2018 3:14:53 PM Referred By: Jericho Dunn Confirmed By:YASMANY MAZARIEGOS MD
[2018-05-18 15:54] LABS: Hematocrit 40.7 % (37-47); Mean Corp Hgb Conc 31.9 g/gl (32-36); Mean Corpuscular Hgb 29.3 pg (27.0-32.0); Mean Corpuscular Volume 91.9 fL (81-99); Mean Platelet Vol. 10.6 fl (6.2-12.0); Platelet Count 243 K/mm3 (150-450); RBC Distribution Width CV 13.1 % (11.6-14.6); RBC Distribution Width SD 43.2 fl (35.1-43.9); Red Blood Count 4.43 M/mm3 (4.2-5.4); White Blood Count 6.2 K/mm3 (4.4-11.0)
[2018-05-18 16:02] LABS: Scan Indicated on CBC? Y/N NO
[2018-05-18 16:11] LABS: International Normalized Ratio 1.1; Prothrombin Time (Protime)PT. 13.9 SECONDS (11.7-14.9)
[2018-05-18 16:12] LABS: AST(SGOT) 16 U/L (15-37); Alanine Aminotransfer ALT/SGPT 20 U/L (13-56); Albumin, Serum 3.8 g/dL (3.2-5.0); Alkaline Phosphatase 73 U/L (45-117); Bilirubin, Direct 0.07 mg/dL (0.00-0.30); Globulin 3.6 g/dL (2.2-4.2); Partial Thromboplast Time 33.5 Seconds (24.1-36.2); Protein, Total 7.4 g/dL (6.4-8.2)
[2018-05-22] VITALS (16 sets, daily range): BP systolic 90–144; BP diastolic 43–80; PULSE 62–84; RESP 16; TEMP 36.1–37.2; O2SAT 93–100; BMI 23.6
--- NOTE | 2018-05-22 | BRBX_PTH ---
PATIENT: PATTI CARRERA LOC: MS3 U#:[id number] AGE/SX: 67/F ROOM: AZ317 RE05/23/[address]: Dr. Jericho Dunn MD : 1950 BED: 1 DIS: 05/25/2018 SPEC #: [id number] RECD: 05/22/18 16:15 STATUS: THI EDWINA #: [id number] KATLIN: 05/22/18 00:[address]: Jericho Dunn DEPT: SURGICAL PATHOLOGY RECD BY: Russell Funes ENTERED: 05/25/18 09:49 SP TYPE: BREAST BX OTHR DR: Dr. Lexie Chapman MD Tissues: A - Left breast, NOS B - Right breast, NOS Procedures: Surgery Specimen Level IV HEADER OPERATION: Revision left breast reconstruction with painful radiation PRE-OP DIAGNOSIS: Personal history of breast cancer; left chest wall pain; late effect radiation to left lateral chest wall; prophylactic right breast removal; acquired absence bilateral breasts TISSUE SUBMITTED: A - Left breast tissue and capsule, B - Right breast tissue and capsule MICROSCOPIC DIAGNOSIS A. Left breast tissue and capsule: Pieces of skin, fibroadipose tissue and dense fibroconnective tissue with reactive changes. B. Right breast tissue and capsule: Pieces of skin, fibroadipose tissue and dense fibroconnective tissue with reactive changes. SJ:gertrude 05/26/18 COMMENT A & B. Breast tissue is not identified in the sections examined. MICROSCOPIC DESCRIPTION Slides are reviewed. GROSS DESCRIPTION A - Received in fixative is one container labeled with the patient's name and designated left breast tissue and capsule. The specimen consists of multiple pieces of edmonds, indurated tissue with a few of the pieces consistent with capsule that in aggregate measure 10 x 7 x 0.5 cm. A strip of edmonds-white skin is also noted measuring 12 x 0.2 x 0.3 cm. No mass lesion is identified. Meteorologist In Charge sections are submitted in three cassettes. B - Received in fixative is one container labeled with the patient's name and designated right breast tissue and capsule. The specimen consists of a piece of edmonds, indurated tissue consistent with capsule measuring 8 x 2.5 x 03 cm. Also present in the container is a piece of skin with underlying tissue measuring 2.5 x 0.5 cm and up to 1.5 cm in thickness. No mass lesion is identified. Meteorologist In Charge sections are submitted in two cassettes. / SJ:rg 05/25/18 TC:5 CPT: 67695 x2
--- NOTE | 2018-05-22 08:11 | PCM.HP.BLA ---
History and Physical Date of Admission: 05/22/18 HISTORY OF PRESENT ILLNESS Comes in today for evaluation of her breast reconstruction. Her intermittent spasm is lessening. She denies any fever. She states she is off the Aromasin. She has noticed more symmetry in a bra, and she is not self conscious as much about her prior radiation contracture contour deformity of the left breast after her revision surgery with Alloderm acellular dermal matrix graft on 03/14/15. On that date, she underwent revision left breast reconstruction with excision painful lateral chest wall radiation scar tissue and superolateral capsulectomy and placement Alloderm acellular dermal matrix graft inferolateral and superolateral slings (264 cm2) and revision superior pole radiation contracture contour deformity with placement Alloderm acellular dermal matrix graft (128 cm2) and replacement cohesive gel implant (430 ml implant) and revision right breast reconstruction asymmetric inframammary fold with wedge excision scar contour deformity. Her biggest concern at this time is the persistent firmness in her left axilla extending onto the lateral aspect of the pectoralis major muscle. There is a lateral pectoralis muscle deformity that is bothering her. With the improvement in the superior pole radiation contracture contour deformity, she has noticed the lateral pectoralis deformity more. She has persistent pain with recurrence of capsular contracture. She also has lateral chest wall skin adherence in the area of the radiation near the axilla. She has also noted some inferior dimpling on the left but is covered in her bra and is not bothersome at this time. When she takes her bra off, she notices more ptosis with the right breast reconstruction, but has symmetry in a bra. She still gets periodic [facility] PAST MEDICAL HISTORY left breast cancer - postoperative radiation therapy Arthritis Headaches/Migraines Hives Osteoporosis Ulcers interstitial cystitis depression since her diagnosis of breast cancer Anemia painful capsular contracture medial aspect bilateral tissue expanders painful radiation capsular contracture contour deformity superior aspect left breast reconstruction cancerphobia right breast hypertension prophylactic right breast removal acquired absence bilateral breasts painful TRAM flap scar contour deformity abdominal wall constipation abdominal pain epistaxis left lateral chest wall rib pain late effect radiation to left lateral chest wall and left breast PAST SURGICAL HISTORY 11 Knee surgeries left breast skin-sparing mastectomy and sentinel node biopsy. First stage immediate left breast reconstruction with placement of submuscular saline tissue deli cutter slicer and placement of Alloderm acellular dermal matrix graft (96 cm2). I used a Tropic 350 ml deli cutter slicer - 07/11/10 second stage left breast reconstruction with removal of saline tissue deli cutter slicer and capsulectomy and reconstruction with unipedicled contralateral TRAM flap and abdominal wall reconstruction with Allomax acellular dermal matrix graft (50 cm2) - 05/23/11 incision and drainage and debridement of postoperative hematoma/seroma abdominal wall and sharp selective debridement of nonhealing TRAM flap left breast reconstruction - 06/17/11 revision reconstructed left breast with excision painful mass and painful scar contour deformity and delayed left breast reconstruction with latissimus dorsi myocutaneous flap - 12/26/11 left breast reconstruction with placement of submuscular saline tissue deli cutter slicer and placement of Flex HD acellular dermal matrix graft (96 cm2) and right prophylactic mastectomy and immediate right breast reconstruction with placement of submuscular saline tissue deli cutter slicer and placement of Flex HD acellular dermal matrix graft (96 cm2) and excision painful TRAM flap scar contour deformity abdominal wall with 15 cm secondary wound closure - 11/16/12 bilateral breast reconstruction with removal saline tissue expanders, bilateral partial capsulectomies, and placement of bilateral cohesive gel implants (430 ml implants bilaterally) - 06/14/13 colonoscopy - 06/18 revision left breast reconstruction with excision painful lateral chest wall radiation scar tissue and superolateral capsulectomy and placement Alloderm acellular dermal matrix graft inferolateral and superolateral slings (264 cm2) and revision superior pole radiation contracture contour deformity with placement Alloderm acellular dermal matrix graft (128 cm2) and replacement cohesive gel implant (430 ml implant) and revision right breast reconstruction asymmetric inframammary fold with wedge excision scar contour deformity - 03/14/15 MEDICATIONS Celexa. Colace. Duloxetine. Flonase. Lisinopril. Probiotic. Metoprolol. Ondansetron. Oxybutynin. Oxycodone. Tizanidine. ALLERGIES Demerol. Tamoxifen. Vicodin. Synvisc. FAMILY HISTORY Positive for breast cancer. Positive for colon cancer. SOCIAL HISTORY Patient is a former smoker. patient does not drink alcohol. does not use aspirin. does use ibuprofen occasionally for pain. REVIEW OF SYSTEMS General-denies fever, fatigue, and weight loss. Eyes-denies cataracts. Denies glaucoma. ENT-denies nasal congestion sore throat. Has painful left breast reconstruction with radiation capsular contracture. Cardiovascular-denies chest pain, fatigue, lightheadedness, and shortness breath with exertion. Respiratory-denies cough and shortness of breath. Gastrointestinal-denies nausea, vomiting, diarrhea constipation. Genitourinary-denies hematuria and urinary frequency. Musculoskeletal-complains of stiffness and arthritis. Denies joint pain back pain and muscle weakness. Has left shoulder stiffness. Skin-denies suspicious lesions and skin cancer. Neuro--complains of headaches. Psych-denies anxiety. Complains of depression. Endocrine-denies excessive thirst or urination. Hematologic-eyes abnormal bruising or bleeding. PHYSICAL EXAMINATION General-well developed, well nourished, in no acute distress. HEENT-pupils equal round and reactive to light. Extraocular muscles intact. Throat is clear. Neck-supple nontender. No cervical adenopathy. Chest wall-has mild tenderness left lateral chest wall over the ribs. Overlying skin shows no evidence of infection. There is some adherence of the skin over the ribs. Tenderness of left upper chest with palpation. Breasts-breasts are reasonably soft and symmetrical in her bra. There is some firmness noted on the left breast both superiorly and laterally. Without her bra there is a little more ptosis on the right. There is a lateral pectoralis muscle contour deformity by the axilla with induration and tenderness. She has more discomfort in the axilla itself probably secondary to radiation. She understands that further surgery in the axilla was too risky because of the presence of neurovascular structures and radiated tissue. On the right breast reconstruction, the inframammary fold is a little lower at about 2 cm. There is some minor dimpling on the inferior aspect of the breasts, more so on the left. There is also some pincushioning on the left in the area of the latissimus flap. Breast width is 12 cm bilaterally. Lungs-clear to auscultation. Heart-regular rate and rhythm. Abdomen-soft and nondistended. No hernias noted. The TRAM flap scar is well-healed. Back-no evidence of seroma by the latissimus incision on the left back. Pulses-pulses normal in all 4 extremities. Extremities-no clubbing, cyanosis, or edema. Full range of motion of all joints. No axillary adenopathy. No inguinal adenopathy. Neurologic-cranial nerves II through XII grossly intact. Psych-alert and cooperative with normal mood and affect. ASSESSMENT 1. Personal history of breast cancer. 2. Left lateral chest wall pain. 3. Late effect radiation to left lateral chest wall. 4. Prophylactic right breast removal. 5. Acquired absence bilateral breasts. 6. Late effect of radiation to the left breast reconstruction. 7. 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 8. Possible capsular contracture right breast reconstruction. 9. Deformity left breast reconstruction with latissimus flap pincushioning and inferior dimpling. 10. Deformity right breast reconstruction with lowered asymmetric inframammary fold. 11. Family history of breast cancer. 12. Status of bilateral breast implants reconstruction. 13. Former smoker. PLAN The left breast reconstruction looks much better superiorly with a more smoother contour after the placement of acellular dermal matrix graft. However she has noticed a lateral pectoralis contour deformity by the axilla. This deformity may benefit from further placement of acellular dermal matrix graft to improve the contour. She states it is getting more painful and bothersome, and she would like to proceed with revision breast reconstruction. A recurrence of capsular contracture may be present on the left. Some of the pain in the axilla is secondary to radiation and there is too much risk to remove it because of the presence of neurovascular structures in radiated tissue. She states that is reasonably tolerable at this time. The left lateral rib pain is persistent and may benefit from a biologic graft as well to provide a buffer so the radiated skin scars down to the graft and not the rib which should improve her pain. So on the left side, I will revise the breast reconstruction with excision radiation skin scar contour deformity. Will need placement of acellular dermal matrix graft. With recurrent capsular contracture, a capsulectomy will be done with removal of the implant with replacement cohesive gel implant. Acellular dermal matrix graft will also be needed as an inferolateral sling for support and contouring. The inframammary folds show mild asymmetry with the right side being a little lower. Not noticeable in a bra. On the right breast reconstruction, I will elevate the asymmetric inframammary fold with a Emiliano abdominal advancement flap and internal capsular plication. Acellular dermal matrix graft may also be used as an inferolateral sling for support and contouring. This should help the ptosis as well. Scar deformity excision may also be done as well to tighten the skin envelope which will also help the ptosis. If a capsular contracture is also present on the right, then a capsulectomy will be done as well. If it is done, then the implant will be removed with replacement cohesive gel implant. There is some minor dimpling inferiorly which is more noticeable on the left than the right. For the inferior dimpling, the placement of acellular dermal matrix graft inferolateral sling may be helpful. There is also some pincushioning on the left where the latissimus flap is adjacent to radiated tissue. A multiple W-plasty would help decrease the pincushioning and improve the contouring. Because of the radiation, I will see if a slightly smaller implant may be helpful in improving the contour as well. Too much pressure on the skin can cause increased radiation firmness. Too little pressure on the skin can lead to dimpling. At present she has 430 ml cohesive gel implants (Ultra High). We can try an implant with similar size but not as much projection which may help decrease some of the radiation firmness in the future. Patient is aware that changing the size of the implant may not help the radiation firmness at all, but is willing to try. Patient was informed of the risks and complications of the procedure including alternatives to surgery. These were discussed with the patient personally. Patient voices understanding and wishes to proceed. Some of the risks and complications were included in a form from the [employer]. Patient would like to proceed with the surgery before Thanks. She will followup after her surgery. Surgery will be done under general anesthesia with a surgical observation overnight stay in the hospital. She will have drains in for several days and be maintained on antibiotics until the drains are removed.
[2018-05-22] MEDS: Cefazolin 2 GM in 0.9% Normal Saline 100 ML IV (08:42)
--- NOTE | 2018-05-22 19:08 | OP.PN_ITS ---
Immediate Post-Op Note Date of Procedure: 05/22/18 Primary Surgeon/Physician: Jericho Dunn communications operator: Ena Crawford. Pre-Operative Diagnosis: 1. Personal history of breast cancer. 2. Left lateral chest wall pain. 3. Late effect radiation to left lateral chest wall. 4. Prophylactic right breast removal. 5. Acquired absence bilateral breasts. 6. Late effect of radiation to the left breast reconstruction. 7. 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 8. Possible capsular contracture right breast reconstruction. 9. Deformity left breast reconstruction with latissimus flap pincushioning and inferior dimpling. 10. Deformity right breast reconstruction with lowered asymmetric inframammary fold. 11. Family history of breast cancer. 12. Status of bilateral breast implants reconstruction. 13. Former smoker. Post-Operative Diagnosis: 1. Personal history of breast cancer. 2. Left lateral chest wall pain. 3. Late effect radiation to left lateral chest wall. 4. Prophylactic right breast removal. 5. Acquired absence bilateral breasts. 6. Late effect of radiation to the left breast reconstruction. 7. 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 8. Capsular contracture right breast reconstruction. 9. Deformity left breast reconstruction with latissimus flap pincushioning and inferior dimpling. 10. Deformity right breast reconstruction with lowered asymmetric inframammary fold and excess mastectomy skin scar contour deformity. 11. Family history of breast cancer. 12. Status of bilateral breast implants reconstruction. 13. Former smoker. Surgery/Procedure Performed:: 1. Revision left breast reconstruction with excision painful radiation scar contour deformity and placement FlexHD acellular dermal matrix graft. 2. Revision left breast reconstruction with capsulectomy and replacement cohesive gel implant and placement FlexHD acellular dermal matri x graft inferolateral sling. 3. Revision left latissimus dorsi myocutaneous flap breast reconstruction radiation scar pincushion contour deformity with multiple W-plasty (10.4 cm2). 4. Revision right breast reconstruction with excision excess mastectomy skin scar contour deformity and capsulectomy and replacement cohesive gel implant. 5. Revision asymmetric inframammary fold right breast reconstruction with internal capsular plication advancement flap (19.5 cm2) and placement FlexHD acellular dermal matrix graft inferolateral sling. Description of Surgical Findings:: Comes in today for evaluation of her breast reconstruction. Her intermittent spasm is lessening. She denies any fever. She states she is off the Aromasin. She has noticed more symmetry in a bra, and she is not self conscious as much about her prior radiation contracture contour deformity of the left breast after her revision surgery with Alloderm acellular dermal matrix graft on 03/14/15. On that date, she underwent revision left breast reconstruction with excision painful lateral chest wall radiation scar tissue and superolateral capsulectomy and placement Alloderm acellular dermal matrix graft inferolateral and superolateral slings (264 cm2) and revision superior pole radiation contracture contour deformity with placement Alloderm acellular dermal matrix graft (128 cm2) and replacement cohesive gel implant (430 ml implant) and revision right breast reconstruction asymmetric inframammary fold with wedge excision scar contour deformity. Her biggest concern at this time is the persistent firmness in her left axilla extending onto the lateral aspect of the pectoralis major muscle. There is a lateral pectoralis muscle deformity that is bothering her. With the improvement in the superior pole radiation contracture contour deformity, she has noticed the lateral pectoralis deformity more. She has persistent pain with recurrence of capsular contracture. She also has lateral chest wall skin adherence in the area of the radiation near the axilla. She has also noted some inferior dimpling on the left but is covered in her bra and is not bothersome at this time. When she takes her bra off, she notices more ptosis with the right breast reconstruction, but has symmetry in a bra. She still gets periodic [facility]. Today the patient underwent revision left breast reconstruction with excision painful radiation scar contour deformity and placement FlexHD acellular dermal matrix graft and revision left breast reconstruction with capsulectomy and replacement cohesive gel implant and placement FlexHD acellular dermal matrix graft inferolateral sling and revision left latissimus dorsi myocutaneous flap breast reconstruction radiation scar pincushion contour deformity with multiple W-plasty (10.4 cm2) and revision right breast reconstruction with excision excess mastectomy skin scar contour deformity and capsulectomy and replacement cohesive gel implant and revision asymmetric inframammary fold right breast reconstruction with internal capsular plication advancement flap (19.5 cm2) and placement FlexHD acellular dermal matrix graft inferolateral sling. IV Fluids - 2000 ml. Urine Output - 600 ml. I used [place] [employer] Smooth Round Ultra High Profile Breast Implant, (430 ml on the right). Reference Number - [id number]. Lot Number - [id number]. Serial Number - [id number]. Expiration - March 17, 2023. I used [place] [employer] Smooth Round Ultra High Profile Breast Implant, (430 ml on the left). Reference Number - [id number]. Lot Number - [id number]. Serial Number - [id number]. Expiration - March 17, 2023. I used FlexHD acellular dermal matrix graft, Pliable Shaped, Perforated, Thick, (11 x 20 cm, breast kit). Item Number - [id number]. Serial Number - [id number]. Expiration - February 28, 2021, (11 x 20 cm on the right). Item Number - [id number]. Serial Number - [id number]. Expiration - January 27, 2021, (11 x 20 cm on the left). I used FlexHD acellular dermal matrix graft, Pliable, Perforated, Thick, (12 x 20 cm on the left). Item Number - [id number]. Serial Number - [id number]. Expiration - February 11, 2021. I used [employer]ena absorbable hemostat, (I used 4 vials, 2 in each breast). Reference Number - [id number]. Lot Number - [id number]. Expiration - July 03, 2022, (2 vials on the left). Reference Number - [id number]. Lot Number - [id number]. Expiration - December 01, 2022, ( on the right). Reference Number - [id number]. Lot Number - [id number]. Expiration - January 31, 2023, (on the right). Estimated Blood Loss: 100 ml. Specimen's removed: 1. Left breast tissue and capsule to Pathology. 2. Right breast tissue and capsule to Pathology. Drains: Morris x4 (2 in each breast). Type of Anesthesia:: General - Admit VTE Documentation VTE Present on Admission: No VTE Mechan Device Prophylaxis: SCD's VTE Pharm Prophylaxis ordered?: Yes
--- NOTE | 2018-05-22 19:28 | PCM.OPRPT ---
Report of Operation Date of Procedure: 05/22/18 Pre-Operative Diagnosis: 1. Personal history of breast cancer. 2. Left lateral chest wall pain. 3. Late effect radiation to left lateral chest wall. 4. Prophylactic right breast removal. 5. Acquired absence bilateral breasts. 6. Late effect of radiation to the left breast reconstruction. 7. 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 8. Possible capsular contracture right breast reconstruction. 9. Deformity left breast reconstruction with latissimus flap pincushioning and inferior dimpling. 10. Deformity right breast reconstruction with lowered asymmetric inframammary fold. 11. Family history of breast cancer. 12. Status of bilateral breast implants reconstruction. 13. Former smoker. Post-Operative Diagnosis: 1. Personal history of breast cancer. 2. Left lateral chest wall pain. 3. Late effect radiation to left lateral chest wall. 4. Prophylactic right breast removal. 5. Acquired absence bilateral breasts. 6. Late effect of radiation to the left breast reconstruction. 7. 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 8. Capsular contracture right breast reconstruction. 9. Deformity left breast reconstruction with latissimus flap pincushioning and inferior dimpling. 10. Deformity right breast reconstruction with lowered asymmetric inframammary fold and excess mastectomy skin scar contour deformity. 11. Family history of breast cancer. 12. Status of bilateral breast implants reconstruction. 13. Former smoker. Surgery/Procedure Performed:: 1. Revision left breast reconstruction with excision painful radiation scar contour deformity and placement FlexHD acellular dermal matrix graft. 2. Revision left breast reconstruction with capsulectomy and replacement cohesive gel implant (430 ml) and placement FlexHD acellular dermal matrix graft inferolateral sling. 3. Revision left latissimus dorsi myocutaneous flap breast reconstruction radiation scar pincushion contour deformity with multiple W-plasty (10.4 cm2). 4. Revision right breast reconstruction with excision excess mastectomy skin scar contour deformity and capsulectomy and replacement cohesive gel implant (430 ml). 5. Revision asymmetric inframammary fold right breast reconstruction with internal capsular plication advancement flap (19.5 cm2) and placement FlexHD acellular dermal matrix graft inferolateral sling. Description of Surgical Findings:: Comes in today for evaluation of her breast reconstruction. Her intermittent spasm is lessening. She denies any fever. She states she is off the Aromasin. She has noticed more symmetry in a bra, and she is not self conscious as much about her prior radiation contracture contour deformity of the left breast after her revision surgery with Alloderm acellular dermal matrix graft on 03/14/15. On that date, she underwent revision left breast reconstruction with excision painful lateral chest wall radiation scar tissue and superolateral capsulectomy and placement Alloderm acellular dermal matrix graft inferolateral and superolateral slings (264 cm2) and revision superior pole radiation contracture contour deformity with placement Alloderm acellular dermal matrix graft (128 cm2) and replacement cohesive gel implant (430 ml implant) and revision right breast reconstruction asymmetric inframammary fold with wedge excision scar contour deformity. Her biggest concern at this time is the persistent firmness in her left axilla extending onto the lateral aspect of the pectoralis major muscle. There is a lateral pectoralis muscle deformity that is bothering her. With the improvement in the superior pole radiation contracture contour deformity, she has noticed the lateral pectoralis deformity more. She has persistent pain with recurrence of capsular contracture. She also has lateral chest wall skin adherence in the area of the radiation near the axilla. She has also noted some inferior dimpling on the left but is covered in her bra and is not bothersome at this time. When she takes her bra off, she notices more ptosis with the right breast reconstruction, but has symmetry in a bra. She still gets periodic [facility] Patient was informed of the risks and complications of the procedure including alternatives to surgery. These were discussed with the patient personally. Patient voices understanding and wishes to proceed. Some of the risks and complications were included in a form from the [employer]. IV Fluids - 2000 ml. Urine Output - 600 ml. I used [employer] Memory[employer]el Smooth Round Ultra High Profile Breast Implant, (430 ml on the right). Reference Number - [id number]. Lot Number - [id number]. Serial Number - [id number]. Expiration - March 17, 2023. I used [employer] Smooth Round Ultra High Profile Breast Implant, (430 ml on the left). Reference Number - [id number]. Lot Number - [id number]. Serial Number - [id number]. Expiration - March 17, 2023. I used FlexHD acellular dermal matrix graft, Pliable Shaped, Perforated, Thick, (11 x 20 cm, breast kit). Item Number - [id number]. Serial Number - [id number]. Expiration - February 28, 2021, (11 x 20 cm on the right). Item Number - [id number]. Serial Number - [id number]. Expiration - January 27, 2021, (11 x 20 cm on the left). I used FlexHD acellular dermal matrix graft, Pliable, Perforated, Thick, (12 x 20 cm on the left). Item Number - [id number]. Serial Number - [id number]. Expiration - February 11, 2021. I used Heena absorbable hemostat, (I used 4 vials, 2 in each breast). Reference Number - [id number]. Lot Number - [id number]. Expiration - July 03, 2022, (2 vials on the left). Reference Number - [id number]. Lot Number - [id number]. Expiration - December 01, 2022, ( on the right). Reference Number - [id number]. Lot Number - [id number]. Expiration - January 31, 2023, (on the right). immigration consultant: Ena Crawford. Type of Anesthesia:: General Specimen's removed: 1. Left breast tissue and capsule to Pathology. 2. Right breast tissue and capsule to Pathology. Drains: Morris x4 (2 in each breast). Estimated Blood Loss (mL): 100 ml. Fluids Replaced: 2600 ml (IV Fluids 2000 ml, Urine Output 600 ml). Description of Procedure: The patient was taken to the operating room and in the sitting position, preoperative markings were made. The sternum midline was marked down to the umbilicus. The inframammary folds marked bilaterally. The right inframammary fold was lower by 2 cm. I also marked out the area of pain in the left lateral breast and chest wall area. I also stanislaw out multiple small W-plasty markings on the inferior aspect of the latissimus flap to help with the radiation pincushioning. The patient was then placed in the supine position, placed under general anesthesia and her breasts were prepped and draped in usual fashion. SCDs were placed for DVT prophylaxis. Perioperative antibiotics were given intravenously. A Mata catheter was then placed. Using Xylocaine and epinephrine, the previous scars were infiltrated both on the right breast and the inferior aspect of the latissimus dorsi flap on the left breast. After waiting 5 minutes for the anesthetic to take effect, a multiple W-plasty incision was made on the left breast on the inferior aspect of the latissimus dorsi myocutaneous flap scar. Dissection was carried down until the capsule was seen. Capsulotomy was performed and the implant was removed. No fluid was seen in the pocket, so no culture was taken. I then preceded with a capsulectomy. There was a lot of thickened radiation scarring in the capsule which could help explain her painful symptomatology. There was also thickened radiation scarring at the lateral edge of the capsular contracture that extended onto the lateral chest wall. This thickened scarring was excised as this was the area that I marked out preoperatively that she was having pain in. This tissue was sent to pathology for analysis. I then went ahead and excised a lot of the abnormal thickened radiation scar tissue on the left side in the left lateral chest wall area and superiorly in the area of the indentation of the pectoralis muscle where additional radiation thickened scarring is noted. Hemostasis was obtained using electrocautery. Some of this scar tissue that was excised was also sent to pathology with the capsular tissue. I then went ahead and tried smaller sizers within the breast pocket ranging from 335 - 400 ml. The patient was then sat up as the incision was temporarily closed with Vicryl suture. There was a lot more wrinkling. The breast appeared slightly flat and I felt that I would need to use the 430 mL implant again. I used FlexHD acellular dermal matrix graft to help with the radiation capsular contracture contour deformity in the superior pole by using an extra thick piece and folding it over twice to make a thick roll of the acellular dermal matrix graft that I placed superiorly to keep the skin from shamar down to the chest wall. The piece that was there previously was dissected free. I split that piece in two and used a portion of it in the lateral aspect of the breast in the pectoralis muscle area. The remaining portion was re-rolled and used in the superior aspect of the breast pocket to re-enforce the area. The remaining portion of the FlexHD that wasn't involved in the rolling up to provide soft tissue contour superiorly will be used to secure to the inferolateral sling provided by a second piece of FlexHD. This was secured to the chest wall using 3-0 Vicryl suture. I then created a inferolateral sling with another piece of FlexHD acellular dermal matrix graft. This will keep the implant more centrally located. The inferolateral sling will be sutured to the superior sling once the implant is placed. I also secured the superior lateral sling to the extra thick piece of acellular dermal matrix graft that I placed in the superior pole with 3-0 Vicryl suture. Some of the excess acellular dermal matrix graft from the inferior lateral sling was then placed in the lateral chest wall area to provide some soft tissue between the skin and the chest wall to hopefully minimize further painful radiation scar contracture in this area of the lateral chest wall. 2 size 15 Morris drains were placed through separate stab incisions laterally and secured to the skin using 3-0 nylon suture. The left breast wound was irrigated with saline. Hemostasis was obtained with electrocautery. I then placed the 430 ml sizer (ultra high profile) into the left breast and temporarily closed the incision with 3-0 Vicryl suture. I then sat the patient up and marked the asymmetry of the inframammary fold and made parallel markings about 2 cm more superiorly. I placed the patient back in the supine position. An incision was made through the previous mastectomy incision right breast down into the subcutaneous tissue until the capsule was seen. A capsulotomy was done and the implant was removed and placed on the back table. There was some thickening of the capsule laterally and superiorly and a capsulectomy was performed. I advanced the abdominal wall skin flap superiorly about 2 cm and secured it to the chest wall with a 2-0 Vicryl internal capsular plication suturing to make the inframammary fold more symmetrical with the left side. The size of the advancement flap was 2 x 9.75 cm or 19.5 cm2. I then placed FlexHD acellular dermal matrix graft into the right breast pocket as an inferolateral sling to help keep the implant more centralized. The FlexHD was secured to the chest wall with 3-0 Vicryl interrupted sutures. I placed the 430 ml sizer (ultra high profile) into the right breast and temporarily closed the incision with 3-0 Vicryl suture. I sat the patient up and good symmetry was noted between the left breast and the right breast. I placed the patient back in the supine position. The sizer was removed. The wound was irrigated with saline. I placed 2 size 15 Morris drains through separate stab incisions laterally and secured to the skin using 3-0 Nylon sutures. Hemostasis was obtained with electrocautery. I then sprayed Heena absorbable hemostat into the breast pocket. I used 2 vials. I then placed [employer] Ultra High Profile Smooth Round Breast Implant (size 430 ml) into the breast pocket underneath the FlexHD inferolateral sling. I then closed the right breast incision with 3-0 Vicryl figure of eight interrupted sutures for the deep subcutaneous tissue. The deep dermis and subcutaneous tissue was approximated with 3-0 Monocryl interrupted sutures. It was noted there was a bulge medially with excess mastectomy skin scar contour deformity. I excised a wedge of breast tissue medially to improve the contour in this area. This breast tissue and capsule was sent to Pathology for analysis to rule out carcinoma from the right breast. Also breast tissue and capsule was sent to Pathology for analysis to rule out carcinoma from the left breast. The skin was approximated with 3-0 V lock unidirectional barbed running subcuticular suture. Histoacryl skin tissue adhesive was then applied. For the left breast, the skin sutures were removed and the sizer was removed. I sprayed Heena absorbable hemostat into the breast pocket. I used 2 vials as well in the left breast. I then placed [employer] Ultra High Profile Smooth Round Breast Implant (size 430 ml) into the breast pocket underneath the FlexHD inferolateral sling and superior sling. Using a malleable to protect the implant, I closed the FlexHD slings together with 3-0 Vicryl interrupted sutures and visualized the needle with each suture to make sure the implant was protected. I then closed the left breast multiple W-plasty incision with 3-0 Monocryl interrupted sutures for the deep subcutaneous tissue. The deep dermis and subcutaneous tissue was approximated with 3-0 Monocryl interrupted sutures. The skin was approximated with 4-0 Prolene simple interrupted sutures. This was followed by Histoacryl skin tissue adhesive. The size of the multiple W-plasty was 8 x 1.3 cm or 10.4 cm2. At the end of the procedure, there was good contouring noted on the breasts. There was increased fullness laterally by the pectoralis muscle with the placement of acellular dermal matrix graft. If this isn't enough to improve the indentation in this area, can excise some of the subcutaneous tissue in this area through an external incision and/or do some fat injections to further smooth out the indentation. Will discuss with the patient postop if symptoms persist. Would have to wait until the hospital purchases the fat injection equipment or the patient would have to go out of town for the fat injections if she so desires. No vascular compromise was noted on the breast skin flaps and the latissimus flap. Kerlix gauze was applied followed by a surgical bra. Patient tolerated the procedure well and was sent to PACU in satisfactory condition. Patient will be sent upstairs for continued postop care. She will keep her head elevated. She will be on a lifting restriction. She will have her drains removed in the office. Grafts/Implants Used: [employer] Implantsx2, and FlexHD acellular dermal matrix graft. - Complications None. - Admit VTE Documentation VTE Present on Admission: No VTE Mechan Device Prophylaxis: SCD's VTE Pharm Prophylaxis ordered?: Yes Code Visit Surgery Charges CPT - 72171 ICD-10 - Z85.3, R07.9, T66.xxxS, Z90.13, N65.0, T85.9xxS, T85.44xS, N65.1, Z80.3, Z87.891 18966 Z85.3, T85.9xxS, T85.44xS, R07.9, T66.xxxS, Z90.13, N65.0, N65.1, Z80.3, Z87.891 59118 Z85.3, Z90.13, N65.1, R07.9, T66.xxxS, T85.9xxS, T85.44xS, N65.0, Z80.3, Z87.891 50526 Z85.3, Z90.13, N65.1, R07.9, T66.xxxS, T85.9xxS, T85.44xS, N65.0, Z80.3, Z87.891 24426 Z85.3, R07.9, T66.xxxS, Z90.13, N65.0, T85.9xxS, T85.44xS, N65.1, Z80.3, Z87.891 [id number] Z85.3, R07.9, Z90.13, N65.0, T85.9xxS, T85.44xS, N65.1, Z80.3, Z87.891 99408-06 Z85.3, T85.9xxS, T85.44xS, R07.9, Z90.13, N65.0, N65.1, Z80.3, Z87.891 16724-20 Z85.3, Z90.13, N65.1, R07.9, T85.9xxS, T85.44xS, N65.0, Z80.3, Z87.891 26183-96 Z85.3, Z90.13, N65.1, R07.9, T85.9xxS, T85.44xS, N65.0, Z80.3, Z87.891 [id number] Z85.3, R07.9, Z90.13, N65.0, T85.9xxS, T85.44xS, N65.1, Z80.3, Z87.891
[2018-05-22] MEDS: HYDROmorphone 0.5 MG/0.5 ML SYRINGE IV (19:35)
[2018-05-22] MEDS: Lactated Ringers 1,000 ML 60 ML IV (20:16)
[2018-05-22] MEDS: Cefazolin 1 GM/50 ML BAG IV (22:07)
[2018-05-23] VITALS (7 sets, daily range): BP systolic 103–137; BP diastolic 59–74; PULSE 58–90; RESP 16; TEMP 36.7–37.5; O2SAT 93–97
[2018-05-23] MEDS: Lactated Ringers 500 ML 999 ML IV (00:05)
[2018-05-23] MEDS: Lactated Ringers 1,000 ML 100 ML IV ×2 (00:59→05:37)
[2018-05-23] MEDS: oxyCODONE 5 MG Tablet 10 MG PO ×4 (05:35→20:42)
[2018-05-23] MEDS: Cefazolin 1 GM/50 ML BAG IV ×3 (05:37→22:56)
[2018-05-23] MEDS: Enoxaparin 30 MG/0.3 ML Syringe SC (05:37)
[2018-05-23 06:35] LABS: Hematocrit 34.5 % (37-47); Hemoglobin 11.2 g/dl (12.0-15.0); Mean Corp Hgb Conc 32.5 g/gl (32-36); Mean Corpuscular Hgb 29.9 pg (27.0-32.0); Mean Corpuscular Volume 92.2 fL (81-99); Mean Platelet Vol. 10.9 fl (6.2-12.0); Platelet Count 182 K/mm3 (150-450); RBC Distribution Width CV 13.9 % (11.6-14.6); RBC Distribution Width SD 45.4 fl (35.1-43.9); Red Blood Count 3.74 M/mm3 (4.2-5.4); White Blood Count 11.2 K/mm3 (4.4-11.0)
[2018-05-23 06:41] LABS: Scan Indicated on CBC? Y/N NO
[2018-05-23 07:06] LABS: Anion Gap 9 (5-15); BUN 13 mg/dL (7-18); BUN/Creat Ratio 22.4 RATIO (10-20); Calcium,Total 8.3 mg/dL (8.5-10.1); Chloride 103 mmol/L (98-107); Creatinine, Serum 0.58 mg/dL (0.55-1.02); EST Glomerular Filtration Rate 110 mL/min (>60); Est Glom Filt Rate - Afr Amer 133 mL/min (>60); Estimated Creatinine Clearance 47.79 ml/min; Glucose 143 mg/dL (74-106); Potassium 3.7 mmol/L (3.5-5.1); Prealbumin 15.2 mg/dL (20.0-40.0); Sodium Level 140 mmol/L (136-145)
[2018-05-23] MEDS: Fluticasone 0.05% 1 SPRAY NASAL.SRY NASAL (09:29)
[2018-05-23] MEDS: Tolterodine Tartrate 2 MG CAP.SA PO (09:29)
[2018-05-23] MEDS: DULoxetine Hcl 20 MG Capsule PO (09:31)
[2018-05-23] MEDS: Metoprolol Tartrate 25 MG Tablet PO ×2 (09:31→20:44)
[2018-05-23] MEDS: Lisinopril 10 MG Tablet PO (09:31)
[2018-05-23] MEDS: diazePAM 5 MG Tablet PO ×2 (09:34→21:35)
[2018-05-23] MEDS: Citalopram 10 MG Tablet PO (11:12)
--- NOTE | 2018-05-23 14:21 | PCM.PN.SRG ---
Subjective: Postop #1 Patient has incisional pain. - Physical Exam General: Alert, Oriented x3 HEENT: PERRLA, EOMI Oral: Moist Mucosa Neck: Supple Abdomen: Soft, Non-Distended Skin: Incision - breasts are soft and symmetrical. No clinical evidence of hematoma. Incisions are dry and intact. No vascular compromise noted on her breast skin flaps. Neurological: Cranial nerves II-XII grossly intact Psych/Mental Status: Normal Affect, Appropriate Vital Signs Temp Pulse Resp BP Pulse Ox 98.2 F 81 16 109/66 95 05/23/18 09:40 05/23/18 09:40 05/23/18 09:40 05/23/18 09:40 05/23/18 09:40 Oxygen Flow Rate (L/min) 2 Oxygen Delivery Method Room Air Weight: 137 lb 12.623 oz Body Mass Index (BMI) 23.6 Intake and Output for Last 24 Hours 05/21/18 05/22/18 05/23/18 23:59 23:59 23:59 Intake Total 2600 / 2600 3042 / 3042 Output Total 965 / 965 2370 / 2370 Balance 1635 / 1635 672 / 672 Drainage 165 ml yesterday, 245 ml today. Laboratory Tests Past 24 Hrs 05/23/18 05/23/18 06:20 06:20 WBC 11.2 H RBC 3.74 L Hgb 11.2 L Hct 34.5 L MCV 92.2 MCH 29.9 MCHC 32.5 RDW 13.9 RDW Differential 45.4 H Plt Count 182 MPV 10.9 Sodium 140 Potassium 3.7 Chloride 103 Carbon Dioxide 28.0 Anion Gap 9 BUN 13 Creatinine 0.58 Estim Creat Clear Calc 47.79 Est GFR (MDRD) Af Amer 133 Est GFR (MDRD) Non-Af 110 BUN/Creatinine Ratio 22.4 H Glucose 143 H Calcium 8.3 L Prealbumin 15.2 L Medical Necessity - Tobacco Use Smoking Status: Former smoker Assessment/Plan All Active Problems (Last Updated 10/13/17 @ 10:05 by Irene Ramirez) Colitis (Acute) Lower GI bleed (Acute) Urticaria (Acute) 1. Personal history of breast cancer. 2. Left lateral chest wall pain. 3. Late effect radiation to left lateral chest wall. 4. Prophylactic right breast removal. 5. Acquired absence bilateral breasts. 6. Late effect of radiation to the left breast reconstruction. 7. 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 8. Capsular contracture right breast reconstruction. 9. Deformity left breast reconstruction with latissimus flap pincushioning and inferior dimpling. 10. Deformity right breast reconstruction with lowered asymmetric inframammary fold and excess mastectomy skin scar contour deformity. 11. Family history of breast cancer. 12. Status of bilateral breast implants reconstruction. 13. Former smoker. 14. s/p revision left breast reconstruction with excision painful radiation scar contour deformity and placement FlexHD acellular dermal matrix graft and revision left breast reconstruction with capsulectomy and replacement cohesive gel implant and placement FlexHD acellular dermal matrix graft inferolateral sling and revision left latissimus dorsi myocutaneous flap breast reconstruction radiation scar pincushion contour deformity with multiple W-plasty (10.4 cm2) and revision right breast reconstruction with excision excess mastectomy skin scar contour deformity and capsulectomy and replacement cohesive gel implant and revision asymmetric inframammary fold right breast reconstruction with internal capsular plication advancement flap (19.5 cm2) and placement FlexHD acellular dermal matrix graft inferolateral sling. Patient has incisional pain. Will wean to po analgesia for discharge. Anticipate discharge tomorrow. Keep head elevated. No heavy lifting. Continue surgical bra. Mata is out. She is voiding without difficulty. Will remove the drains in the office. Prealbumin was 15.2. Encourage nutritional supplementation with protein to help the healing process.
--- NOTE | 2018-05-23 14:29 | OP.PCM_ITS ---
Report of Operation Date of Procedure: 05/22/18 Pre-Operative Diagnosis: 1. Personal history of breast cancer. 2. Left lateral chest wall pain. 3. Late effect radiation to left lateral chest wall. 4. Prophylactic right breast removal. 5. Acquired absence bilateral breasts. 6. Late effect of radiation to the left breast reconstruction. 7. 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 8. Possible capsular contracture right breast reconstruction. 9. Deformity left breast reconstruction with latissimus flap pincushioning and inferior dimpling. 10. Deformity right breast reconstruction with lowered asymmetric inframammary fold. 11. Family history of breast cancer. 12. Status of bilateral breast implants reconstruction. 13. Former smoker. Post-Operative Diagnosis: 1. Personal history of breast cancer. 2. Left lateral chest wall pain. 3. Late effect radiation to left lateral chest wall. 4. Prophylactic right breast removal. 5. Acquired absence bilateral breasts. 6. Late effect of radiation to the left breast reconstruction. 7. 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 8. Capsular contracture right breast reconstruction. 9. Deformity left breast reconstruction with latissimus flap pincushioning and inferior dimpling. 10. Deformity right breast reconstruction with lowered asymmetric inframammary fold and excess mastectomy skin scar contour deformity. 11. Family history of breast cancer. 12. Status of bilateral breast implants reconstruction. 13. Former smoker. Surgery/Procedure Performed:: 1. Revision left breast reconstruction with excision painful radiation scar contour deformity and placement FlexHD acellular dermal matrix graft. 2. Revision left breast reconstruction with capsulectomy and replacement cohesive gel implant (430 ml) and placement FlexHD acellular dermal matrix graft inferolateral sling. 3. Revision left latissimus dorsi myocutaneous flap breast reconstruction radiation scar pincushion contour deformity with multiple W-plasty (10.4 cm2). 4. Revision right breast reconstruction with excision excess mastectomy skin scar contour deformity and capsulectomy and replacement cohesive gel implant (430 ml). 5. Revision asymmetric inframammary fold right breast reconstruction with internal capsular plication advancement flap (19.5 cm2) and placement FlexHD acellular dermal mat fish graft inferolateral sling. Description of Surgical Findings:: Comes in today for evaluation of her breast reconstruction. Her intermittent spasm is lessening. She denies any fever. She states she is off the Aromasin. She has noticed more symmetry in a bra, and she is not self conscious as much about her prior radiation contracture contour deformity of the left breast after her revision surgery with Alloderm acellular dermal matrix graft on 03/14/15. On that date, she underwent revision left breast reconstruction with excision painful lateral chest wall radiation scar tissue and superolateral capsulectomy and placement Alloderm acellular dermal matrix graft inferolateral and superolateral slings (264 cm2) and revision superior pole radiation contracture contour deformity with placement Alloderm acellular dermal matrix graft (128 cm2) and replacement cohesive gel implant (430 ml implant) and revision right breast reconstruction asymmetric inframammary fold with wedge excision scar contour deformity. Her biggest concern at this time is the persistent firmness in her left axilla extending onto the lateral aspect of the pectoralis major muscle. There is a lateral pectoralis muscle deformity that is bothering her. With the improvement in the superior pole radiation contracture contour deformity, she has noticed the lateral pectoralis deformity more. She has persistent pain with recurrence of capsular contracture. She also has lateral chest wall skin adherence in the area of the radiation near the axilla. She has also noted some inferior dimpling on the left but is covered in her bra and is not bothersome at this time. When she takes her bra off, she notices more ptosis with the right breast reconstruction, but has symmetry in a bra. She still gets periodic [facility]. Patient was informed of the risks and complications of the procedure including alternatives to surgery. These were discussed with the patient personally. Patient voices understanding and wishes to proceed. Some of the risks and complications were included in a form from the [employer]. IV Fluids - 2000 ml. Urine Output - 600 ml. I used Rombauer MemoryGel Smooth Round Ultra High Profile Breast Implant, (430 ml on the right). Reference Number - [id number]. Lot Number - [id number]. Serial Number - [id number]. Expiration - March 17, 2023. I used Rombauer MemoryGel Smooth Round Ultra High Profile Breast Implant, (430 ml on the left). Reference Number - [id number]. Lot Number - [id number]. Serial Number - [id number]. Expiration - March 17, 2023. I used FlexHD acellular dermal matrix graft, Pliable Shaped, Perforated, Thick, (11 x 20 cm, breast kit). Item Number - [id number]. Serial Number - [id number]. Expiration - February 28, 2021, (11 x 20 cm on the right). Item Number - [id number]. Serial Number - [id number]. Expiration - January 27, 2021, (11 x 20 cm on the left). I used FlexHD acellular dermal matrix graft, Pliable, Perforated, Thick, (12 x 20 cm on the left). Item Number - [id number]. Serial Number - [id number]. Expiration - February 11, 2021. I used Heena absorbable hemostat, (I used 4 vials, 2 in each breast). Reference Number - [id number]. Lot Number - [id number]. Expiration - July 03, 2022, (2 vials on the left). Reference Number - [id number]. Lot Number - [id number]. Expiration - December 01, 2022, ( on the right). Reference Number - [id number]. Lot Number - [id number]. Expiration - January 31, 2023, (on the right). morning show host: Ena Crawford. Type of Anesthesia:: General Specimen's removed: 1. Left breast tissue and capsule to Pathology. 2. Right breast tissue and capsule to Pathology. Drains: Morris x4 (2 in each breast). Estimated Blood Loss (mL): 100 ml. Fluids Replaced: 2600 ml (IV Fluids 2000 ml, Urine Output 600 ml). Description of Procedure: The patient was taken to the operating room and in the sitting position, preoperative markings were made. The sternum midline was marked down to the umbilicus. The inframammary folds marked bilaterally. The right inframammary fold was lower by 2 cm. I also marked out the area of pain in the left lateral breast and chest wall area. I also stanislaw out multiple small W-plasty markings on the inferior aspect of the latissimus flap to help with the radiation pincushioning. The patient was then placed in the supine position, placed under general anesthesia and her breasts were prepped and draped in usual fashion. SCDs were placed for DVT prophylaxis. Perioperative antibiotics were given int ravenously. A Mata catheter was then placed. Using Xylocaine and epinephrine, the previous scars were infiltrated both on the right breast and the inferior aspect of the latissimus dorsi flap on the left breast. After waiting 5 minutes for the anesthetic to take effect, a multiple W-plasty incision was made on the left breast on the inferior aspect of the latissimus dorsi myocutaneous flap sca r. Dissection was carried down until the capsule was seen. Capsulotomy was performed and the implant was removed. No fluid was seen in the pocket, so no culture was taken. I then preceded with a capsulectomy. There was a lot of thickened radiation scarring in the capsule which could help explain her painful symptomatology. There was also thickened radiation scarring at the lateral edge of the capsular contracture that extended onto the lateral chest wall. This thickened scarring was excised as this was the area that I marked out preoperatively that she was having pain in. This tissue was sent to pathology for analysis. I then went ahead and excised a lot of the abnormal thickened radiation scar tissue on the left side in the left lateral chest wall area and superiorly in the area of the indentation of the pectoralis muscle where additional radiation thickened scarring is noted. Hemostasis was obtained using electrocautery. Some of this scar tissue that was excised was also sent to pathology with the capsular tissue. I then went ahead and tried smaller sizers within the breast pocket ranging from 335 - 400 ml. The patient was then sat up as the incision was temporarily closed with Vicryl suture. There was a lot more wrinkling. The breast appeared slightly flat and I felt that I would need to use the 430 mL implant again. I used FlexHD acellular dermal matrix graft to help with the radiation capsular contracture contour deformity in the superior pole by using an extra thick piece and folding it over twice to make a thick roll of the acellular dermal matrix graft that I placed superiorly to keep the skin from shamar down to the chest wall. The piece that was there previously was dissected free. I split that piece in two and used a portion of it in the lateral aspect of the breast in the pectoralis muscle area. The remaining portion was re-rolled and used in the superior aspect of the breast pocket to re-enforce the area. The remaining portion of the FlexHD that wasn't involved in the rolling up to provide soft tissue contour superiorly will be used to secure to the inferolateral sling provided by a second piece of FlexHD. This was secured to the chest wall using 3-0 Vicryl suture. I then created a inferolateral sling with another piece of FlexHD acellular dermal matrix graft. This will keep the implant more centrally located. The inferolateral sling will be sutured to the superior sling once the implant is placed. I also secured the superior lateral sling to the extra thick piece of acellular dermal matrix graft that I placed in the superior pole with 3-0 Vicryl suture. Some of the excess acellular dermal matrix graft from the inferior lateral sling was then placed in the lateral chest wall area to provide some soft tissue between the skin and the chest wall to hopefully minimize further painful radiation scar contracture in this area of the lateral chest wall. 2 size 15 Morris drains were placed through separate stab incisions laterally and secured to the skin using 3-0 nylon suture. The left breast wound was irrigated with saline. Hemostasis was obtained with electrocautery. I then placed the 430 ml sizer (ultra high profile) into the left breast and temporarily closed the incision with 3-0 Vicryl suture. I then sat the patient up and marked the asymmetry of the inframammary fold and made parallel markings about 2 cm more superiorly. I placed the patient back in the supine position. An incision was made through the previous mastectomy incision right breast down into the subcutaneous tissue until the capsule was seen. A capsulotomy was done and the implant was removed and placed on the back table. There was some thickening of the capsule laterally and superiorly and a capsulectomy was performed. I advanced the abdominal wall skin flap superiorly about 2 cm and secured it to the chest wall with a 2-0 Vicryl internal capsular plication suturing to make the inframammary fold more symmetrical with the left side. The size of the advancement flap was 2 x 9.75 cm or 19.5 cm2. I then placed FlexHD acellular dermal matrix graft into the right breast pocket as an inferolateral sling to help keep the implant more centralized. The FlexHD was secured to the chest wall with 3-0 Vicryl interrupted sutures. I placed the 430 ml sizer (ultra high profile) into the right breast and temporarily closed the incision with 3-0 Vicryl suture. I sat the patient up and good symmetry was noted between the left breast and the right breast. I placed the patient back in the supine position. The sizer was removed. The wound was irrigated with saline. I placed 2 size 15 Morris drains through separate stab incisions laterally and secured to the skin using 3-0 Nylon sutures. Hemostasis was obtained with electrocautery. I then sprayed Heena absorbable hemostat into the breast pocket. I used 2 vials. I then placed Rombauer MemoryGel Ultra High Profile Smooth Round Breast Implant (size 430 ml) into the breast pocket underneath the FlexHD inferolateral sling. I then closed the right breast incision with 3-0 Vicryl figure of eight interrupted sutures for the deep subcutaneous tissue. The deep dermis and subcutaneous tissue was approximated with 3-0 Monocryl interrupted sutures. It was noted there was a bulge medially with excess mastectomy skin scar contour deformity. I excised a wedge of breast tissue medially to improve the contour in this area. This breast tissue and capsule was sent to Pathology for analysis to rule out carcinoma from the right breast. Also breast tissue and capsule was sent to Pathology for analysis to rule out carcinoma from the left breast. The skin was approximated with 3-0 V lock unidirectional barbed running subcuticular suture. Histoacryl skin tissue adhesive was then applied. For the left breast, the skin sutures were removed and the sizer was removed. I sprayed Heena absorbable hemostat into the breast pocket. I used 2 vials as well in the left breast. I then placed Rombauer MemoryGel Ultra High Profile Smooth Round Breast Implant (size 430 ml) into the breast pocket underneath the FlexHD inferolateral sling and superior sling. Using a malleable to protect the implant, I closed the FlexHD slings together with 3-0 Vicryl interrupted sutures and visualized the needle with each suture to make sure the implant was protecte d. I then closed the left breast multiple W-plasty incision with 3-0 Monocryl interrupted sutures for the deep subcutaneous tissue. The deep dermis and subcutaneous tissue was approximated with 3-0 Monocryl interrupted sutures. The skin was approximated with 4-0 Prolene simple interrupted sutures. This was followed by Histoacryl skin tissue adhesive. The size of the multiple W-plasty was 8 x 1.3 cm or 10.4 cm2. At the end of the procedure, there was good contouring noted on the breasts. There was increased fullness laterally by the pectoralis muscle with the placement of acellular dermal matrix graft. If this isn't enough to improve the indentation in this area, can excise some of the subcutaneous tissue in this area through an external incision and/or do some fat injections to further smooth out the indentation. Will discuss with the patient postop if symptoms persist. Would have to wait until the hospital purchases the fat injection equipment or the patient would have to go out of town for the fat injections if she so desires. No vascular compromise was noted on the breast skin flaps and the latissimus flap. Kerlix gauze was applied followed by a surgical bra. Patient tolerated the procedure well and was sent to PACU in satisfactory condition. Patient will be sent upstairs for continued postop care. She will keep her head elevated. She will be on a lifting restriction. She will have her drains removed in the office. Grafts/Implants Used: Rombauer MemoryGel Implantsx2, and FlexHD acellular dermal matrix graft. - Complications None. - Admit VTE Documentation VTE Present on Admission: No VTE Mechan Device Prophylaxis: SCD's VTE Pharm Prophylaxis ordered?: Yes Code Visit Surgery Charges CPT - 69085 ICD-10 - Z85.3, R07.9, T66.xxxS, Z90.13, N65.0, T85.9xxS, T85.44xS, N65.1, Z80.3, Z87.891 91038 Z85.3, T85.9xxS, T85.44xS, R07.9, T66.xxxS, Z90.13, N65.0, N65.1, Z80.3, Z87.891 [id number] Z85.3, Z90.13, N65.1, R07.9, T66.xxxS, T85.9xxS, T85.44xS, N65.0, Z80.3, Z87.891 10005 Z85.3, Z90.13, N65.1, R07.9, T66.xxxS, T85.9xxS, T85.44xS, N65.0, Z80.3, Z87.891 64144 Z85.3, R07.9, T66.xxxS, Z90.13, N65.0, T85.9xxS, T85.44xS, N65.1, Z80.3, Z87.891 23446-96 Z85.3, R07.9, Z90.13, N65.0, T85.9xxS, T85.44xS, N65.1, Z80.3, Z87.891 [id number] Z85.3, T85.9xxS, T85.44xS, R07.9, Z90.13, N65.0, N65.1, Z80.3, Z87.891 47833-80 Z85.3, Z90.13, N65.1, R07.9, T85.9xxS, T85.44xS, N65.0, Z80.3, Z87.891 41259-80 Z85.3, Z90.13, N65.1, R07.9, T85.9xxS, T85.44xS, N65.0, Z80.3, Z87.891 10975-54 Z85.3, R07.9, Z90.13, N65.0, T85.9xxS, T85.44xS, N65.1, Z80.3, Z87.891
[2018-05-23] MEDS: Lactated Ringers 1,000 ML 15 ML IV (16:18)
[2018-05-23] MEDS: Ondansetron 4 MG/2 ML Vial IV (20:44)
[2018-05-24] VITALS (7 sets, daily range): BP systolic 98–111; BP diastolic 50–62; PULSE 69–86; RESP 16; TEMP 36.9–37.2; O2SAT 94–98
[2018-05-24] MEDS: oxyCODONE 5 MG Tablet 10 MG PO ×5 (02:22→20:39)
[2018-05-24] MEDS: Enoxaparin 30 MG/0.3 ML Syringe SC (06:31)
[2018-05-24] MEDS: Cefazolin 1 GM/50 ML BAG IV ×3 (06:31→21:57)
[2018-05-24] MEDS: Metoprolol Tartrate 25 MG Tablet PO (08:19)
[2018-05-24] MEDS: Citalopram 10 MG Tablet PO (08:19)
[2018-05-24] MEDS: diazePAM 5 MG Tablet PO ×3 (08:19→20:39)
[2018-05-24] MEDS: DULoxetine Hcl 20 MG Capsule PO (08:20)
[2018-05-24] MEDS: Tolterodine Tartrate 2 MG CAP.SA PO (08:20)
[2018-05-24] MEDS: Fluticasone 0.05% 1 SPRAY NASAL.SRY NASAL (08:20)
[2018-05-24] MEDS: HYDROmorphone 0.5 MG/0.5 ML SYRINGE IV (11:46)
--- NOTE | 2018-05-24 14:11 | PCM.PN.SRG ---
Subjective: Postop #2 Patient complains of incisional pain and unsteadiness with ambulation. - Physical Exam General: Alert, Oriented x3 HEENT: PERRLA, EOMI Oral: Moist Mucosa Neck: Supple Abdomen: Soft, Non-Distended Skin: Incision - breasts are soft and symmetrical. No clinical evidence of hematoma. Incisions are dry and intact. No vascular compromise noted on her breast skin flaps. Neurological: Cranial nerves II-XII grossly intact Psych/Mental Status: Normal Affect, Appropriate Vital Signs Temp Pulse Resp BP Pulse Ox 98.5 F 69 16 99/59 L 95 05/24/18 11:57 05/24/18 11:57 05/24/18 11:57 05/24/18 11:57 05/24/18 11:57 Oxygen Flow Rate (L/min) 2 Oxygen Delivery Method Room Air Weight: 137 lb 12.623 oz Body Mass Index (BMI) 23.6 Intake and Output for Last 24 Hours 05/22/18 05/23/18 05/24/18 23:59 23:59 23:59 Intake Total 2600 / 2600 3845 / 3845 1759 / 1759 Output Total 965 / 965 2570 / 2570 400 / 400 Balance 1635 / 1635 1275 / 1275 1359 / 1359 Drainage 245 ml yesterday, 50 ml today. Medical Necessity - Tobacco Use Smoking Status: Former smoker Assessment/Plan All Active Problems (Last Updated 10/13/17 @ 10:05 by Irene Ramirez) Colitis (Acute) Lower GI bleed (Acute) Urticaria (Acute) 1. Personal history of breast cancer. 2. Left lateral chest wall pain. 3. Late effect radiation to left lateral chest wall. 4. Prophylactic right breast removal. 5. Acquired absence bilateral breasts. 6. Late effect of radiation to the left breast reconstruction. 7. 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 8. Capsular contracture right breast reconstruction. 9. Deformity left breast reconstruction with latissimus flap pincushioning and inferior dimpling. 10. Deformity right breast reconstruction with lowered asymmetric inframammary fold and excess mastectomy skin scar contour deformity. 11. Family history of breast cancer. 12. Status of bilateral breast implants reconstruction. 13. Former smoker. 14. s/p revision left breast reconstruction with excision painful radiation scar contour deformity and placement FlexHD acellular dermal matrix graft and revision left breast reconstruction with capsulectomy and replacement cohesive gel implant and placement FlexHD acellular dermal matrix graft inferolateral sling and revision left latissimus dorsi myocutaneous flap breast reconstruction radiation scar pincushion contour deformity with multiple W-plasty (10.4 cm2) and revision right breast reconstruction with excision excess mastectomy skin scar contour deformity and capsulectomy and replacement cohesive gel implant and revision asymmetric inframammary fold right breast reconstruction with internal capsular plication advancement flap (19.5 cm2) and placement FlexHD acellular dermal matrix graft inferolateral sling. Patient has incisional pain. Will wean to po analgesia for discharge. Is unsteady on her feet with ambulation. Will work on improving her steadiness with ambulation before discharge. Will keep one more day and discharge tomorrow so she has more time to improve her steadiness with ambulation. Keep head elevated. No heavy lifting. Continue surgical bra. Will remove the drains in the office. Prealbumin was 15.2. Encourage nutritional supplementation with protein to help the healing process.
[2018-05-25 03:20] VITALS: BP 98/61; PULSE 75; RESP 16; TEMP 37.2; O2SAT 94
[2018-05-25] MEDS: oxyCODONE 5 MG Tablet 10 MG PO ×2 (03:24→09:16)
[2018-05-25] MEDS: diazePAM 5 MG Tablet PO (03:24)
[2018-05-25] MEDS: Enoxaparin 30 MG/0.3 ML Syringe SC (04:55)
[2018-05-25] MEDS: Cefazolin 1 GM/50 ML BAG IV (04:55)
[2018-05-25 08:42] VITALS: BP 122/72; PULSE 90; RESP 16; TEMP 37.2; O2SAT 96
[2018-05-25 09:15] VITALS: PULSE 90
[2018-05-25] MEDS: Metoprolol Tartrate 25 MG Tablet PO (09:15)
[2018-05-25] MEDS: tiZANidine HCl 2 MG Tablet 4 MG PO (09:15)
[2018-05-25] MEDS: Lisinopril 10 MG Tablet PO (09:15)
[2018-05-25] MEDS: DULoxetine Hcl 20 MG Capsule PO (09:16)
[2018-05-25] MEDS: Citalopram 10 MG Tablet PO (09:16)
[2018-05-25] MEDS: Tolterodine Tartrate 2 MG CAP.SA PO (09:16)
[2018-05-25] MEDS: Fluticasone 0.05% 1 SPRAY NASAL.SRY NASAL (09:17)
[2018-05-25 11:14] VITALS: BP 91/52; PULSE 71; RESP 12; TEMP 37.2; O2SAT 92
--- NOTE | 2018-05-25 11:49 | PCM.PN.SRG ---
Subjective: Postop #3 Patient is resting comfortably. She is more steady on her feet with ambulation. - Physical Exam General: Alert, Oriented x3 HEENT: PERRLA, EOMI Oral: Moist Mucosa Neck: Supple Abdomen: Soft, Non-Distended Skin: Incision - breasts are soft and symmetrical. No clinical evidence of hematoma. Incisions are dry and intact. No vascular compromise noted on her breast skin flaps. Neurological: Cranial nerves II-XII grossly intact Psych/Mental Status: Normal Affect, Appropriate Vital Signs Temp Pulse Resp BP Pulse Ox 98.9 F 71 12 91/52 L 92 05/25/18 11:14 05/25/18 11:14 05/25/18 11:14 05/25/18 11:14 05/25/18 11:14 Oxygen Flow Rate (L/min) 2 Oxygen Delivery Method Room Air Weight: 137 lb 12.623 oz Body Mass Index (BMI) 23.6 Intake and Output for Last 24 Hours 05/23/18 05/24/18 05/25/18 23:59 23:59 23:59 Intake Total 3845 / 3845 2159 / 2159 1150 / 1150 Output Total 2570 / 2570 850 / 850 1460 / 1460 Balance 1275 / 1275 1309 / 1309 -310 / -310 Drainage 50 ml yesterday, 60 ml today. Medical Necessity - Tobacco Use Smoking Status: Former smoker Assessment/Plan All Active Problems (Last Updated 10/13/17 @ 10:05 by Irene Ramirez) Colitis (Acute) Lower GI bleed (Acute) Urticaria (Acute) 1. Personal history of breast cancer. 2. Left lateral chest wall pain. 3. Late effect radiation to left lateral chest wall. 4. Prophylactic right breast removal. 5. Acquired absence bilateral breasts. 6. Late effect of radiation to the left breast reconstruction. 7. 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 8. Capsular contracture right breast reconstruction. 9. Deformity left breast reconstruction with latissimus flap pincushioning and inferior dimpling. 10. Deformity right breast reconstruction with lowered asymmetric inframammary fold and excess mastectomy skin scar contour deformity. 11. Family history of breast cancer. 12. Status of bilateral breast implants reconstruction. 13. Former smoker. 14. s/p revision left breast reconstruction with excision painful radiation scar contour deformity and placement FlexHD acellular dermal matrix graft and revision left breast reconstruction with capsulectomy and replacement cohesive gel implant and placement FlexHD acellular dermal matrix graft inferolateral sling and revision left latissimus dorsi myocutaneous flap breast reconstruction radiation scar pincushion contour deformity with multiple W-plasty (10.4 cm2) and revision right breast reconstruction with excision excess mastectomy skin scar contour deformity and capsulectomy and replacement cohesive gel implant and revision asymmetric inframammary fold right breast reconstruction with internal capsular plication advancement flap (19.5 cm2) and placement FlexHD acellular dermal matrix graft inferolateral sling. Patient has less incisional pain. She is tolerating po analgesia. She is more steady on her feet with ambulation. Discharge home today. Followup one week on 06/01/18. Keep head elevated. No heavy lifting. Continue surgical bra. Will remove the drains in the office. Will keep on antibiotics until the drains are removed. Prealbumin was 15.2. Encourage nutritional supplementation with protein to help the healing process. Wrote script for Cefadroxil for 14 days until the drains are removed. Wrote scripts for Percocet for pain (50 tabs) and for Valium for spasm (30 tabs). Wrote scripts for Phenergan for nausea (30 tabs) and a refill and for Colace for constipation (60 tabs).
--- NOTE | 2018-05-25 12:24 | DCINST_ITS ---
You will use the following diet at home:: No restrictions Discharge Activity: May not drive while taking narcotic pain medications., May Not Shower - until drains are removed., - - keep head elevated. no heavy lifting. May shower in (days): 14 - after drains are removed. May resume sexual activity in: 10-14 days Weight Bearing Status: Weight bearing as tolerated Lifting Restrictions: 20 lbs. Keep extremity elevated above heart level: - - elevate head. Call your doctor if your incision/area has: Continuous Slow Oozing, Sudden Increased Bleeding, Increased Pain/ Swelling, Increased Redness, Foul Smelling Discharge, Swelling at the incision site Call your doctor if you observe: Fever of 101 or Higher, Coldness, Increased Pain, Shortness of breath, Chest pain, Calf discomfort Suture Line Care: - - dry dressings daily. Change Dressing in (Days):: 1 - dry dressings daily. Cleanse incision/area with: - - may get incisions wet in the shower after the drains are removed. Drain: Suction - queenie drain x4 to bulb suction. empty and record output daily. Allergies/Adverse Reactions: Allergies meperidine HCl [From Demerol] Allergy (Verified 05/15/18 11:17) Hives tamoxifen [Tamoxifen] Allergy (Verified 05/15/18 11:17) Hives hydrocodone bitartrate [From Vicodin] Adverse Reaction (Verified 05/15/18 11:17) Vomiting hylan G-F 20 [From Synvisc] Adverse Reaction (Verified 05/15/18 11:17) Swelling Medications to take at Discharge Citalopram Hydrobromide [Celexa] 10 mg PO DAILY 06/07/13 Duloxetine Hcl [Cymbalta] 20 mg PO DAILY 03/06/15 Lisinopril [Zestril] 10 mg PO DAILY 03/06/15 Metoprolol Tartrate [Lopressor (beta savannah)] 25 mg PO BID 03/06/15 fluticasone 50 mcg/actuation nasal spray,suspension 1 spray INTRANASAL DAILY 10/13/17 Oxybutynin Chloride [Ditropan Xl] 10 mg PO DAILY 11/26/17 Oxycodone Myristate [Xtampza ER] 13.5 mg PO BID 11/26/17 Tizanidine HCl 4 mg PO DAILY PRN PRN 11/26/17 Lactobacillus Acidophilus [Probiotic Acidophilus] 1 each PO BID 01/30/18 Ondansetron [Zofran Odt] 4 mg PO DAILY 01/30/18 Cefadroxil [Duricef] 500 mg PO BID #28 cap 05/25/18 Diazepam [Valium] 5 mg PO 4X/DAY PRN PRN #30 tab 05/25/18 Docusate Sodium [Colace] 100 mg PO BID PRN PRN #60 cap 05/25/18 Oxycodone HCl/Acetaminophen [Percocet 5/325] 1 - 2 tab PO 4X/DAY PRN PRN 7 Days #50 tab 05/25/18 Tolterodine Tartrate [Detrol LA] 2 mg PO DAILY cap.sa 05/25/18 proMETHazine tablet [Phenergan tablet] 25 mg PO 4X/DAY PRN PRN #30 tab 05/25/18 The following prescriptions were given: Diazepam [Valium] 5 mg PO 4X/DAY PRN PRN #30 tab PRN Reason: Spasms Docusate Sodium [Colace] 100 mg PO BID PRN PRN #60 cap PRN Reason: Constipation Oxycodone HCl/Acetaminophen [Percocet 5/325] 1 - 2 tab PO 4X/DAY PRN PRN 7 Days #50 tab PRN Reason: Pain proMETHazine tablet [Phenergan tablet] 25 mg PO 4X/DAY PRN PRN #30 tab PRN Reason: Nausea/Vomiting Cefadroxil [Duricef] 500 mg PO BID #28 cap Orders to be completed after discharge: 12 Lead EKG [[facility]S] Time Frame: 05/18/18, Location: None Selected Chest PA and Lateral [RAD] Time Frame: 05/18/18, Location: None Selected Primary Care Physician: Lexie Chapman MD [Primary Care Provider] - Test Results: Test results from this visit will be discussed in further detail at your follow- up appointment, if applicable. Please Follow Up With: Jericho Dunn MD - call [phone] if questions. When: one week. Friday06/01/18 at 3pm. Proposed Discharge Date: 05/25/18
[2018-05-25 13:42] VITALS: BP 88/49; PULSE 83; RESP 12; TEMP 37.1; O2SAT 93
[2018-05-25 15:15] VITALS: BP 108/58; PULSE 83
== END 2018-05-25 15:54 | disposition home or self-care (01) ==
LOC: SDC 05-25 08:56
PROVIDERS: Anesthesiology; Admitting Provider Surgery; Family Provider Internal Medicine; PCP Internal Medicine; Referring Provider Surgery; Visit Provider Surgery
PROC: (CPT 19361; principal; 2018-05-22 07:15)
DX: N65.0 Deformity of reconstructed breast (principal); Z85.3 Personal history of malignant neoplasm of breast; R07.89 Other chest pain; T66.XXXS Radiation sickness, unspecified, sequela; Z87.891 Personal history of nicotine dependence; Z80.3 Family history of malignant neoplasm of breast; Y83.1 Surgical operation with implant of artificial internal device as the cause of abnormal reaction of the patient, or of later complication, without mention of misadventure at the time of the procedure; T85.44XA Capsular contracture of breast implant, initial encounter; Z79.899 Other long term (current) drug therapy; I10 Essential (primary) hypertension; F41.9 Anxiety disorder, unspecified; L50.9 Urticaria, unspecified; K52.9 Noninfective gastroenteritis and colitis, unspecified
CPT/HCPCS: 19380; 36415; 71046; 80048; 80076; 84134; 85027; 85610; 85730; 88305; 93005; 96361; 96365; 96366; 96372; 96375; 96376; 99218; J7120; G0378; G0379; J0330; J2405

== ENCOUNTER → 2018-10-01 14:00 | Outpatient (CLI) | payer OTHER, SELFPAY ==
[2018-08-03 15:35] VITALS: BMI 23.6
[2018-10-01 14:52] LABS: Amphetamine Urine VISTA NEGATIVE (<1000 ng/mL); Barbiturate Urine VISTA NEGATIVE (< 200 ng/mL); Benzodiazepine Urine VISTA NEGATIVE (< 200 ng/mL); Cocaine Urine VISTA NEGATIVE (< 300 ng/mL); Ecstacy Urine VISTA NEGATIVE (< 500 ng/mL); Methadone Urine VISTA NEGATIVE (< 300 ng/mL); PCP Urine VISTA NEGATIVE (< 25 ng/mL); THC Urine VISTA NEGATIVE (< 50 ng/mL); Vista UDS pH Range 5
== END ==
PROVIDERS: Family Provider Internal Medicine; PCP Internal Medicine; Referring Provider Anesthesiology Pain Medicine; Visit Provider Anesthesiology Pain Medicine
DX: F11.20 Opioid dependence, uncomplicated (principal)
CPT/HCPCS: 80307

== ENCOUNTER → 2018-11-10 10:32 | Outpatient (CLI) | payer OTHER, SELFPAY ==
[2018-08-03 15:35] VITALS: BMI 23.6
[2018-11-10 12:14] LABS: Anion Gap 3 (5-15); BUN 22 mg/dL (7-18); BUN/Creat Ratio 25.3 RATIO (10-20); Chloride 105 mmol/L (98-107); Cholesterol 196 mg/dL (200); Creatinine, Serum 0.87 mg/dL (0.55-1.02); EST Glomerular Filtration Rate 69 mL/min (>60); Est Glom Filt Rate - Afr Amer 84 mL/min (>60); Glucose 100 mg/dL (74-106); High Density Lipoprotein 82 mg/dL; Potassium 4.4 mmol/L (3.5-5.1); Sodium Level 138 mmol/L (136-145); Triglycerides 71 mg/dL; Very Low Density Lipoprotein 14 mg/dL (5-40)
== END ==
PROVIDERS: Family Provider Internal Medicine; PCP Internal Medicine; Referring Provider Internal Medicine; Visit Provider Internal Medicine
DX: I10 Essential (primary) hypertension (principal)
CPT/HCPCS: 36415; 80048; 80061

== ENCOUNTER → 2019-05-27 11:21 | Outpatient (CLI) | payer OTHER, SELFPAY ==
[2019-03-10 16:05] VITALS: BMI 23.6
[2019-05-27 12:42] LABS: Hematocrit 41.8 % (37-47); Hemoglobin 13.2 g/dL (12.0-15.0); Mean Corp Hgb Conc 31.6 g/dL (32-36); Mean Corpuscular Hgb 29.3 pg (27.0-32.0); Mean Corpuscular Volume 92.9 fL (81-99); Mean Platelet Vol. 10.7 fl (6.2-12.0); Platelet Count 233 K/mm3 (150-450); RBC Distribution Width CV 13.2 % (11.6-14.6); RBC Distribution Width SD 45.2 fl (35.1-43.9); White Blood Count 6.7 K/mm3 (4.4-11.0)
[2019-05-27 13:17] LABS: Vitamin D,25 Hydroxy 31.5 ng/mL (29.95-100.01)
[2019-05-27 13:21] LABS: ALB/GLOB Ratio 1.1 RATIO (0.9-2.4); AST(SGOT) 19 U/L (15-37); Alanine Aminotransfer ALT/SGPT 20 U/L (13-56); Albumin, Serum 3.9 g/dL (3.2-5.0); Alkaline Phosphatase 80 U/L (45-117); Anion Gap 9 (5-15); BUN 17 mg/dL (7-18); BUN/Creat Ratio 21.6 RATIO (10-20); Calcium,Total 9.1 mg/dL (8.5-10.1); Chloride 104 mmol/L (98-107); Creatinine, Serum 0.79 mg/dL (0.55-1.02); EST Glomerular Filtration Rate 77 mL/min (>60); Est Glom Filt Rate - Afr Amer 93 mL/min (>60); Free T3 3.1 pg/mL (2.18-3.98); Globulin 3.6 g/dL (2.2-4.2); Glucose 90 mg/dL (74-106); Magnesium 2.1 mg/dL (1.6-2.6); Potassium 4.1 mmol/L (3.5-5.1); Protein, Total 7.5 g/dL (6.4-8.2); Sodium Level 139 mmol/L (136-145); T4 Free Direct 1.17 ng/dL (0.76-1.46); Thyroid Stim Hormone (TSH) 0.39 uIU/mL (0.358-3.74)
== END ==
PROVIDERS: Family Provider Internal Medicine; PCP Internal Medicine; Referring Provider Internal Medicine; Visit Provider Internal Medicine
DX: I10 Essential (primary) hypertension (principal); R53.83 Other fatigue; R25.2 Cramp and spasm
CPT/HCPCS: 36415; 80053; 82306; 83735; 84439; 84443; 84481; 85027

== ENCOUNTER 2019-09-14 15:44 | Observation (INO) | payer OTHER, SELFPAY ==
[2019-07-22 16:11] VITALS: BMI 23.6
--- NOTE | 2019-09-10 14:11 | RAD_ITS ---
STUDY: X-RAY CHEST REASON FOR EXAM: Female, 69 years old. Pre op -- h/o radiation to bilateral breast -- no chest complaints TECHNIQUE: Frontal and lateral views of the chest. COMPARISON: 05/18/2018. FINDINGS: There is a left breast implant. There are clips in the left axilla consistent with lymphadenectomy for breast cancer. The lungs are clear and expanded. There is no demonstrated pleural abnormality. Normal size heart. Normal mediastinum and homero. Normal visualized pulmonary arteries. Normal visualized aortic arch and descending thoracic aorta. Normal visualized thoracic spine. Normal visualized ribs, clavicles, and shoulders. There is no demonstrated abnormality of the visualized soft tissue structures of the upper abdomen. RAD/Chest PA and Lateral IMPRESSION: No definite acute or significant abnormality seen. Electronically Signed: Jeb Acosta MD at 14:52 EST , Service support ,
--- NOTE | 2019-09-10 14:13 | EKG12_ITS ---
Test Reason : PREOP Blood Pressure : / mmHG Vent. Rate : 058 BPM Atrial Rate : 058 BPM P-R Int : 134 ms QRS Dur : 076 ms QT Int : 390 ms P-R-T Axes : 078 062 046 degrees QTc Int : 382 ms Sinus bradycardia Otherwise normal ECG Confirmed by LUIS STANTON, AIDEN ([id number]), content editor TILA ALEMAN ([id number] on 09/13/2019 3:42:27 PM Referred By: Jericho Dunn Confirmed By:AIDEN SMITH MD
[2019-09-10 14:18] LABS: Hematocrit 42.2 % (37-47); Hemoglobin 13.3 g/dL (12.0-15.0); Mean Corp Hgb Conc 31.5 g/dL (32-36); Mean Corpuscular Hgb 29.3 pg (27.0-32.0); Mean Platelet Vol. 10.7 fl (6.2-12.0); Platelet Count 225 K/mm3 (150-450); RBC Distribution Width CV 12.5 % (11.6-14.6); RBC Distribution Width SD 42.8 fl (35.1-43.9); Red Blood Count 4.54 M/mm3 (4.2-5.4); White Blood Count 6.3 K/mm3 (4.4-11.0)
[2019-09-10 14:33] LABS: Prothrombin Time (Protime)PT. 13.1 SECONDS (11.7-14.9)
[2019-09-10 14:34] LABS: Partial Thromboplast Time 34.3 Seconds (24.1-36.2)
[2019-09-10 15:06] LABS: AST(SGOT) 20 U/L (15-37); Alanine Aminotransfer ALT/SGPT 21 U/L (13-56); Albumin, Serum 3.9 g/dL (3.2-5.0); Alkaline Phosphatase 76 U/L (45-117); Bilirubin, Direct 0.09 mg/dL (0.00-0.30); Globulin 3.5 g/dL (2.2-4.2); Protein, Total 7.4 g/dL (6.4-8.2)
--- NOTE | 2019-09-13 11:45 | HP.PCM_ITS ---
History and Physical Date of Admission: 09/14/19 HISTORY OF PRESENT ILLNESS Comes in today for evaluation of her breast reconstruction. 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 Some pain is noted when ther area is bumped or palpated. Her intermittent spasm is lessening. She denies any fever. She states she is off the Aromasin. She had revision breast reconstruction surgery in 05/24 where she underwent revision left breast reconstruction with excision painful radiation scar contour deformity and placement FlexHD acellular dermal matrix graft and revision left breast reconstruction with capsulectomy and replacement cohesive gel implant (430 ml) and placement FlexHD acellular dermal matrix graft inferolateral sling and revision left latissimus dorsi myocutaneous flap breast reconstruction radiation scar pincushion contour deformity with multiple W-pl asty (10.4 cm2) and revision right breast reconstruction with excision excess mastectomy skin scar contour deformity and capsulectomy and replacement cohesive gel implant (430 ml) and revision asymmetric inframammary fold right breast reconstruction with internal capsular plication advancement flap (19.5 cm2) and placement FlexHD acellular dermal matrix graft inferolateral sling. Along with her radiation stepoff deformity in the superior pole of her left breast reconstruction, she still has persistent firmness in her left axilla extending onto the lateral aspect of the pectoralis major muscle also a late effect of her radiation therapy. She has noticed that event in a bra the radiation stepoff deformity is still visible. The overall shape of the breast is symmetrical with the right. She still gets periodic [facility]. PAST MEDICAL HISTORY Abdominal pain Acquired absence of both breasts Anemia Arthritis Breast cancer, left breast Cancer phobia Capsular contracture of breast implant Chest wall pain Constipation Contour deformity of abdomen Contour deformity of breast, acquired Depression Epistaxis Frequent headaches Hives Interstitial cystitis Late effect of radiation Osteoporosis High blood pressure PAST SURGICAL HISTORY colonoscopy knee surgery reconstruction of both breasts total mastectomy of left breast ALLERGIES meperidine HCl [From Demerol] tamoxifen [Tamoxifen] hydrocodone bitartrate [From Vicodin] hylan G-F 20 [From Synvisc] MEDICATIONS Citalopram Hydrobromide [Celexa] 10 mg PO DAILY 06/07/13 [History Confirmed 06/10/18] Duloxetine Hcl [Cymbalta] 20 mg PO DAILY 03/06/15 [History Confirmed 06/10/18] Lisinopril [Zestril] 10 mg PO DAILY 03/06/15 [History Confirmed 06/10/18] Metoprolol Tartrate [Lopressor (beta savannah)] 25 mg PO BID 03/06/15 [History Confirmed 06/10/18] fluticasone propionate 50 mcg/actuation nasal spray,suspension 1 spray INTRANASAL DAILY 10/13/17 [History Confirmed 06/10/18] Oxybutynin Chloride [Ditropan Xl] 10 mg PO DAILY 11/26/17 [History Confirmed 06/10/18] Tizanidine HCl 4 mg PO DAILY PRN PRN 11/26/17 [History Confirmed 06/10/18] Lactobacillus Acidophilus [Probiotic Acidophilus] 1 ea PO BID 01/30/18 [History Confirmed 06/10/18] Ondansetron [Zofran Odt] 4 mg PO DAILY 01/30/18 [History Confirmed 06/10/18] Docusate Sodium [Colace] 100 mg PO BID PRN PRN #60 cap 05/25/18 [Rx Confirmed 06/10/18] Tolterodine Tartrate [Detrol LA] 2 mg PO DAILY cap.sa 05/25/18 [Rx Confirmed 06/10/18] proMETHazine tablet [Phenergan tablet] 25 mg PO 4X/DAY PRN PRN #30 tab 05/25/18 [Rx Confirmed 06/10/18] diazepam 5 mg tablet 5 mg PO 4X/DAY PRN #30 tab 06/25/18 [Rx Confirmed 06/25/18] oxycodone myristate 13.5 mg capsule sprinkle extend release 12hr(DON'T CRUSH) 18 mg PO BID ea 07/22/19 [History Confirmed 07/22/19] FAMILY HISTORY Mother - Thyroid disorder, Uterine cancer Sister - Depression (emotion), Thyroid disorder, Uterine cancer Brother - Alcoholism /alcohol abuse SOCIAL HISTORY Smoking Status: Former smoker second hand exposure: No alcohol intake: current alcohol intake frequency: holidays/special occasions only Alcohol type: wine substance use type: does not use REVIEW OF SYSTEMS General-denies fever, fatigue, and weight loss. Eyes-denies cataracts. Denies glaucoma. ENT-denies nasal congestion sore throat. Has painful left breast reconstruction with radiation stepoff deformity in the superior pole. Cardiovascular-denies chest pain, fatigue, lightheadedness, and shortness breath with exertion. Respiratory-denies cough and shortness of breath. Gastrointestinal-denies nausea, vomiting, diarrhea constipation. Genitourinary-denies hematuria and urinary frequency. Musculoskeletal-complains of stiffness and arthritis. Denies joint pain back pain and muscle weakness. Has left shoulder stiffness. Skin-denies suspicious lesions and skin cancer. Neuro--complains of headaches. Psych-denies anxiety. Complains of depression. Endocrine-denies excessive thirst or urination. Hematologic-eyes abnormal bruising or bleeding. PHYSICAL EXAMINATION General-well developed, well nourished, in no acute distress. HEENT-pupils equal round and reactive to light. Extraocular muscles intact. Throat is clear. Neck-supple nontender. No cervical adenopathy. Chest wall-has mild tenderness left lateral chest wall over the ribs. Overlying skin shows no evidence of infection. There is some adherence of the skin over the ribs. Tenderness of left upper chest with palpation. Breasts-breasts are reasonably soft and symmetrical in her bra. There is some firmness noted on the left breast superior with a radiation stepoff deformity. Some tenderness to palpation. There is a lateral pectoralis muscle contour deformity by the axilla with induration and tenderness also from late effect of radiation. She has more discomfort in the axilla itself probably secondary to radiation. She understands that further surgery in the axilla was too risky because of the presence of neurovascular structures and radiated tissue. No more pincushioning is noted in the area of the latissimus dorsi flap left breast reconstruction. Breast width is 12 cm bilaterally. Lungs-clear to auscultation. Heart-regular rate and rhythm. Abdomen-soft and nondistended. No hernias noted. The TRAM flap scar is well- healed. Back-no evidence of seroma by the latissimus incision on the left back. Pulses-pulses normal in all 4 extremities. Extremities-no clubbing, cyanosis, or edema. Full range of motion of all joints. No axillary adenopathy. No inguinal adenopathy. Neurologic-cranial nerves II through XII grossly intact. Psych-alert and cooperative with normal mood and affect. ASSESSMENT 1. Personal history of breast cancer. 2. Left lateral chest wall pain. 3. Late effect radiation to left lateral chest wall. 4. Prophylactic right breast removal. 5. Acquired absence bilateral breasts. 6. Late effect of radiation to the left breast reconstruction in superior pole with painful radiation stepoff deformity. 7. Family history of breast cancer. 8. Status of bilateral breast implants reconstruction. 9. Former smoker. PLAN The persistent radiation stepoff deformity left breast reconstruction is probably related to the size of her implant. Recommend decreasing the size of her implant on the left which will increase wrinkling of the breast reconstruction. The smaller implant should help decrease the radiation stepoff deformity in the superior pole. Can then revise the skin envelope with excision to minimize wrinkling. Can also add acellular dermal matrix graft to completely cover the implant which should also help decrease the wrinkling. This will necessitate a smaller implant on the right as well for symmetry purposes. Revising the skin envelope with excision may also be necessary on the right as well. Right now the size of the implants are 430 ml. I anticipate maybe 350 ml or so will be sufficient. Additional acellular dermal matrix graft may be nec essary in the superior pole area of the left breast reconstruction as well. The left lateral rib pain is persistent and may benefit from a biologic graft as well to provide a buffer so the radiated skin scars down to the graft and not the rib which should improve her pain. Patient is aware that changing the size of the implant may not help the radiation firmness at all, but is willing to try. Patient was informed of the risks and complications of the procedure including alternatives to surgery. These were discussed with the patient personally. Patient voices understanding and wishes to proceed. Some of the risks and complications were included in a form from the [employer]. Surgery will be done under general anesthesia with a surgical observation over night stay in the hospital. She will have drains in for several days and be maintained on antibiotics until the drains are removed.
[2019-09-14] VITALS (11 sets, daily range): BP systolic 105–150; BP diastolic 60–86; PULSE 54–77; RESP 12–17; TEMP 36.3–37.2; O2SAT 92–100; BMI 24.9
[2019-09-14] MEDS: Scopolamine 1mg/72hr Patch 1 PATCH TRANSDERM. (07:10)
[2019-09-14 07:59] LABS: Magnesium 1.9 mg/dL (1.6-2.6)
[2019-09-14] MEDS: Lactated Ringers 1,000 ML 100 ML IV ×2 (08:15→15:55)
[2019-09-14] MEDS: Acetaminophen 500 MG Tablet 1000 MG PO ×2 (08:16→17:20)
[2019-09-14] MEDS: Gabapentin 600 MG Tablet PO (08:17)
[2019-09-14] MEDS: Cefazolin 2 GM in 0.9% Normal Saline 100 ML IV (09:20)
--- NOTE | 2019-09-14 09:30 | BRBX_PTH ---
PATIENT: PATTI CARRERA LOC: [facility] U#:[id number] AGE/SX: 69/F ROOM: [facility]315 RE09/14/[address]: Dr. Jericho Dunn MD : 1950 BED: 1 DIS: 09/17/2019 SPEC #: [id number] RECD: 09/14/19 16:10 STATUS: THI EDWINA #: [id number] KATLIN: 09/14/19 09:[address]: Jericho Dunn DEPT: SURGICAL PATHOLOGY RECD BY: Emiliano Mack ENTERED: 09/15/19 08:16 SP TYPE: BREAST BX OTHR DR: Dr. Lexie Chapman MD Tissues: A - Left breast, NOS B - Right breast, NOS Procedures: Surgery Specimen Level III HEADER OPERATION: Revision left breast reconstruction with excision PRE-OP DIAGNOSIS: Breast cancer TISSUE SUBMITTED: A - Left breast capsule, B - Right breast tissue MICROSCOPIC DIAGNOSIS A. Left breast capsule: Fragments of dense fibroconnective tissue and skeletal muscle tissue with focal chronic inflammation, foreign body giant cell reaction and reactive changes. B. Right breast tissue: A piece of skin with underlying dense fibroconnective tissue with focal reactive changes, chronic inflammation and foreign body giant cell reaction. EDUARDO:gertrude 09/16/19 MICROSCOPIC DESCRIPTION Slides are reviewed. GROSS DESCRIPTION A - Received in fixative is one container labeled with the patient's name and designated left breast capsule. The specimen consists of a piece of edmonds-yellow fibroadipose tissue measuring 3.5 x 2 x 1.5 cm. Also present in the container are two pieces of fibroadipose tissue that in aggregate measure 1.5 x 0.5 x 0.5 cm. Sections do not reveal any mass lesion. [employer] Judge sections are submitted in two cassettes. B - Received in fixative is one container labeled with the patient's name and designated right breast tissue. The specimen consists of a ring-shaped piece of skin with underlying tissue measuring 10 x 7 x 1.5 cm. No skin lesion is identified. Sections do not reveal any mass lesion. [employer] Judge sections are submitted in three cassettes. / EDUARDO:gertrude 09/15/19 TC:2 CPT: 42563 x2
[2019-09-14] MEDS: Magnesium Sulfate 4gm/100mL 4 GM/100 ML IV.SOLN. IV (09:50)
[2019-09-14 10:00] LABS: Bedside Glucose 150 mg/dL (70-110)
--- NOTE | 2019-09-14 15:36 | OP.PCM_ITS ---
Report of Operation Date of Procedure: 09/14/19 Pre-Operative Diagnosis: 1. Personal history of breast cancer. 2. Left lateral chest wall pain. 3. Late effect radiation to left lateral chest wall. 4. Prophylactic right breast removal. 5. Acquired absence bilateral breasts. 6. Late effect of radiation to the left breast reconstruction in superior pole with painful radiation stepoff deformity. 7. Family history of breast cancer. 8. Status of bilateral breast implants reconstruction. 9. Former smoker. Post-Operative Diagnosis: Same. Surgery/Procedure Performed:: 1. Revision left breast reconstruction with excision painful radiation scar contour deformity and placement acellular dermal matrix graft. 2. Revision left breast reconstruction with removal of implant with multiple capsulotomies and replacement cohesive gel implant (400 ml) and placement Alloderm Select Restore acellular dermal matrix graft (400 cm2). 3. Revision right breast reconstruction with excision excess mastectomy skin scar contour deformity. 4. Revision right breast reconstruction with removal of implant with multiple capsulotomies and replacement cohesive gel implant (350 ml) and placement Alloderm Select Restore acellular dermal matrix graft (400 cm2). Description of Surgical Findings:: Comes in today for evaluation of her breast reconstruction. She has a radiation stepoff deformity in the superior pole of her left breast reconstr uction. Some pain is noted when ther area is bumped or palpated. Her intermittent spasm is lessening. She denies any fever. She states she is off the Aromasin. She had revision breast reconstruction surgery in 05/24 where she underwent revision left breast reconstruction with excision painful radiation scar contour deformity and placement FlexHD acellular dermal matrix graft and revision left breast reconstruction with capsulectomy and replacement cohesive gel implant (430 ml) and placement FlexHD acellular dermal matrix graft inferolateral sling and revision left latissimus dorsi myocutaneous flap breast reconstruction radiation scar pincushion contour deformity with multiple W- plasty (10.4 cm2) and revision right breast reconstruction with excision excess mastectomy skin scar contour deformity and capsulectomy and replacement cohesive gel implant (430 ml) and revision asymmetric inframammary fold right breast reconstruction with internal capsular plication advancement flap (19.5 cm2) and placement FlexHD acellular dermal matrix graft inferolateral sling. Along with her radiation stepoff deformity in the superior pole of her left breast reconstruction, she still has persistent firmness in her left axilla extending onto the lateral aspect of the pectoralis major muscle also a late effect of her radiation therapy. She has noticed that event in a bra the radiation stepoff deformity is still visible. The overall shape of the breast is symmetrical with the right. She still gets periodic [facility]. Patient was informed of the risks and complications of the procedure including alternatives to surgery. These were discussed with the patient personally. Patient voices understanding and wishes to proceed. Some of the risks and complications were included in a form from the [place]. IV Fluids - 2150 ml. Urine Output - 550 ml. I used [place] MemoryGel Smooth Round High Profile Breast Implant, (400 ml on the left). Reference Number - [id number]. Lot Number - [id number]. Serial Number - [id number]. Expiration - August 24, 2024. I used Alloderm Select Restore Acellular Dermal Matrix Graft, Contour Perforated, X-Large, X-Thick, (400 cm2 on the left). Reference Number - [id number]. Lot Number - [id number]. Expiration - January,. I used [place] MemoryGel Smooth Round Ultra High Profile Breast Implant, (350 ml on the right). Reference Number - [id number]. Lot Number - [id number]. Serial Number - [id number]. Expiration - May 08, 2024. I used Alloderm Select Restore Acellular Dermal Matrix Graft, Contour Perforated, X-Large, X-Thick, (400 cm2 on the right). Reference Number - [id number]. Lot Number - [id number]. Expiration - December,. I used Heena absorbable hemostat, (I used 4 vials, 2 in each breast). Reference Number - [id number]. Lot Number - [id number]. Expiration - March 03, 2024. carbon paper interleafer: Robert Leon. Type of Anesthesia:: General Specimen's removed: 1. Left breast tissue and capsule. 2. Right breast tissue. Drains: Morris x2 (one in each breast). Estimated Blood Loss (mL): 150 ml. Fluids Replaced: 2700 ml (IV Fluids 2150 ml, Urine Output 550 ml). Description of Procedure: The patient was taken to the operating room and in the sitting position, preoperative markings were made. The sternum midline was marked down to the umbilicus. The inframammary folds marked bilaterally. The right inframammary fold was a little lower by 1 cm. I also marked out the area of pain in the left lateral breast and chest wall area. The patient was then placed in the supine position, placed under general anesthesia and her breasts were prepped and draped in usual fashion. SCDs were placed for DVT prophylaxis. Perioperative antibiotics were given intravenously. A Mata catheter was then placed. Using Xylocaine and epinephrine, the previous scars were infiltrated both on the right breast and the superior aspect of the latissimus dorsi flap on the left breast. After waiting 5 minutes for the anesthetic to take effect, an incision was made on the left breast on the superior aspect of the latissimus dorsi myocutaneous flap scar. Dissection was carried down until the capsule was seen. Capsulotomy was made and the cohesive gel implant was removed. It appeared intact. No abnormal fluid was seen in the breast pocket. I also lowered the pocket inferiorly with additional capsulotomy to be more in line with the inframammary fold on the right side. There was some thickened radiation fibrosis scarring in the capsule scattered mostly superiorly and inferiorly which could help explain her painful symptomatology. Multiple capsulotomies were made to soften up the breast pocket. This thickened radiation fibrosis scarring was excised. There was also thickened radiation scarring at the lateral edge of the capsular contracture that extended onto the lateral chest wall. This thickened scarring was excised as this was the area that she has had chronic pain. This tissue and some capsule were sent to pathology for analysis to rule out carcinoma. Hemostasis was obtained using electrocautery. I then went ahead and tried smaller sizers within the breast pocket and decided on a 400 ml High Profile. I will try and minimize wrinkling with coverage of the implant completely with Alloderm. The patient was then sat up as the incision was temporarily closed with Vicryl suture. There was a small defect in the superior pole. Will augment that with any residual Alloderm that is not used for complete coverage of the implant. The previous Alloderm in the superior aspect appeared intact and will remain. I then went to the right breast and made incision through the mastectomy scar and dissected down to the capsule. A capsulotomy was made and the cohesive gel implant was removed. It appeared to be intact. No abnormal fluid was seen in the breast pocket. I then placed the 400 ml sizer (high profile) into the right breast and temporarily closed the incision with 3-0 Vicryl suture. There was more ptosis on the right as the breast pocket was larger than needed. I excised an ellipse of skin around the previous mastectomy incision. This excess mastectomy skin scar contour deformity tissue was sent to Pathology for analysis to rule out carcinoma. I placed the patient back in the supine position. I tried a smaller sizer (350 ml) but changed to an Ultra High Profile. Once again the incision was closed with 3-0 Vicryl sutures. The elliptical excision of skin helped the ptosis. Patient was placed back in the sitting position and good symmetry was noted between the left breast and the right breast. I then changed my gloves as I removed the cohesive gel implants from the boxes and placed them on the back table. It was a 400 ml implant (High Profile) on the left and a 350 ml implant (Ultra High Profile) on the right. The implants were placed in sterile Betadine. I placed the Alloderm Select Restore acellular dermal matrix graft, contour perforated, X-large, X-thick in saline for a few minutes and then wrapped it around the implants on each side. I trimmed the excess graft and placed it back in saline to be used for augmentation in the superior pole left breast. The graft was secured over the implant with 3-0 Vicryl sutures. A malleable was used to protect the implant during this phase. The remaining pieces of Alloderm were placed together and rolled into two log shapes and secured with 3-0 Vicryl suture. I also made two triangular pieces as well that were secured with 3-0 Vicryl suture. For proper thickness, I used 4 pieces of Alloderm for each log and for each triangular shaped piece of Alloderm. The triangular pieces were placed underneath the capsulotomy superiorly to minimize any indentation superiorly. Just inferior to the triangular pieces were placed the logs to cover the superior pole of the breast. These Alloderm logs were secured to the superior capsule with 3-0 Vicryl suture. I then irrigated out both breast pockets with Irrisept 0.05% chlorhexidine solution which was then followed with saline irrigation. Hemostasis was obtained with electrocautery. A size 15 Morris drain was placed into each breast pocket through separate incisions laterally and secured to the skin with 3-0 Nylon suture. I then sprayed Heena absorbable hemostat into both breast pockets to minimize seroma formation postoperatively. I used 2 vials in each breast pocket. The breast implants along with the Alloderm coverage were placed in the breast pockets. I secured edges of the Alloderm to the chest wall laterally and inferiorly with 3-0 Vicryl suture. A malleable was used to maintain the implant out of the way of the suturing. I then closed both breast incisions in a layered fashion with 3-0 Vicryl figure of eight interrupted sutures for the deeper capsular and subcutaneous tissue. The deep dermis and subcutaneous tissue was approximated with 3-0 Monocryl interrupted sutures. The skin was approximated with 3-0 V lock unidirectional barbed running subcuticular suture. This was followed by Histoacryl skin tissue adhesive. Patient was placed back in the sitting position. At the end of the procedure, the breasts were symmetrical. There was no clinical evidence of hematoma. No vascular compromise was noted on the skin. Mild bruising was noted on the left breast which we will observe at this time. Minimal indentation noted superiorly. It is more gradual. The inframammary folds are more symmetrical. Patient was placed back supine. Kerlix gauze was applied to the breast incisions followed by a surgical bra and followed with a compression jhon wrap. Patient tolerated the procedure well and was sent to PACU in satisfactory condition. Patient will be sent upstairs for continued postop care. She will keep her head elevated during the initial postop period. She will be on a lifting restriction. She will have her drains removed in the office. Grafts/Implants Used: [place] MemoryGel Implants x2. Alloderm acellular graft x2. - Complications None. - Admit VTE Documentation VTE Present on Admission: No VTE Mechan Device Prophylaxis: SCD's VTE Pharm Prophylaxis ordered?: Yes Surgery Charges CPT - 88758 ICD-10 - C50.912, T66.xxxS, L59.8, T85.44xS, T85.9xxS, Z90.13, N65.0, N65.1, R07.9, Z80.3, Z87.891 [id number] C50.912, T66.xxxS, L59.8, T85.44xS, T85.9xxS, Z90.13, N65.0, N65.1, R07.9, Z80.3, Z87.891 53535 C50.912, T66.xxxS, L59.8, T85.44xS, T85.9xxS, Z90.13, N65.0, N65.1, R07.9, Z80.3, Z87.891 72740-14 C50.912, T66.xxxS, L59.8, T85.44xS, T85.9xxS, Z90.13, N65.0, N65.1, R07.9, Z80.3, Z87.891 [id number] C50.912, T66.xxxS, L59.8, T85.44xS, T85.9xxS, Z90.13, N65.0, N65.1, R07.9, Z80.3, Z87.891
[2019-09-14] MEDS: Lactated Ringers 1,000 ML 60 ML IV (15:56)
[2019-09-14] MEDS: Ondansetron ODT 4 MG Tablet PO (17:20)
[2019-09-14] MEDS: Gabapentin 100 MG Capsule 200 MG PO (17:20)
[2019-09-14] MEDS: oxyCODONE 5 MG Tablet PO ×2 (17:23→21:53)
[2019-09-14] MEDS: Cefazolin 1 GM/50 ML BAG IV (21:27)
[2019-09-15] VITALS (11 sets, daily range): BP systolic 91–126; BP diastolic 45–78; PULSE 74–84; RESP 16–18; TEMP 36.9–37.3; O2SAT 93–99
[2019-09-15] MEDS: Acetaminophen 500 MG Tablet 1000 MG PO ×4 (00:14→18:24)
[2019-09-15] MEDS: Ondansetron ODT 4 MG Tablet PO ×2 (00:14→05:26)
[2019-09-15] MEDS: Lactated Ringers 1,000 ML 60 ML IV (03:54)
[2019-09-15] MEDS: Cefazolin 1 GM/50 ML BAG IV ×3 (05:25→21:39)
[2019-09-15 06:31] LABS: Hematocrit 36.9 % (37-47); Hemoglobin 11.6 g/dL (12.0-15.0); Mean Corp Hgb Conc 31.4 g/dL (32-36); Mean Corpuscular Hgb 29.6 pg (27.0-32.0); Mean Corpuscular Volume 94.1 fL (81-99); Mean Platelet Vol. 10.9 fl (6.2-12.0); Platelet Count 183 K/mm3 (150-450); RBC Distribution Width CV 13.3 % (11.6-14.6); RBC Distribution Width SD 45.9 fl (35.1-43.9); Red Blood Count 3.92 M/mm3 (4.2-5.4); White Blood Count 9.4 K/mm3 (4.4-11.0)
[2019-09-15 07:06] LABS: Anion Gap 4 (5-15); BUN 17 mg/dL (7-18); BUN/Creat Ratio 27.6 RATIO (10-20); Calcium,Total 8.3 mg/dL (8.5-10.1); Chloride 107 mmol/L (98-107); Creatinine, Serum 0.62 mg/dL (0.55-1.02); EST Glomerular Filtration Rate 102 mL/min (>60); Est Glom Filt Rate - Afr Amer 124 mL/min (>60); Glucose 133 mg/dL (74-106); Potassium 4.1 mmol/L (3.5-5.1); Prealbumin 16.4 mg/dL (20.0-40.0); Sodium Level 140 mmol/L (136-145)
[2019-09-15] MEDS: oxyCODONE 5 MG Tablet PO ×3 (08:49→21:39)
[2019-09-15] MEDS: Gabapentin 100 MG Capsule 200 MG PO ×3 (08:49→18:23)
[2019-09-15] MEDS: Ensure Surgery 237 ML LIQUID PO ×3 (09:43→18:23)
[2019-09-15] MEDS: Docusate Sodium 100 MG Capsule 200 MG PO (09:43)
[2019-09-15] MEDS: Citalopram 10 MG Tablet PO (09:43)
[2019-09-15] MEDS: Fluticasone 0.05% 1 SPRAY NASAL.SRY NASAL (09:44)
[2019-09-15] MEDS: Lisinopril 10 MG Tablet PO (09:44)
[2019-09-15] MEDS: DULoxetine Hcl 20 MG Capsule PO (09:44)
[2019-09-15] MEDS: Enoxaparin 40 MG/0.4 ML Syringe SC (09:44)
[2019-09-15] MEDS: Tolterodine Tartrate 2 MG CAP.SA PO (09:44)
[2019-09-15] MEDS: Metoprolol Tartrate 25 MG Tablet PO (09:45)
--- NOTE | 2019-09-15 12:38 | PCM.PN.SRG ---
Subjective: Postop #1 Patient has incisional pain. Still needs occasional IV analgesia. She is a little unsteady on her feet with ambulation. - Physical Exam Vitals/I&O's: Vital Signs Temp Pulse Resp BP Pulse Ox 99.1 F 77 18 114/78 95 09/15/19 12:25 09/15/19 12:25 09/15/19 12:25 09/15/19 12:25 09/15/19 12:25 Oxygen Flow Rate (L/min) 2 Oxygen Delivery Method Room Air Weight: 145 lb 1.027 oz Body Mass Index (BMI) 24.9 Intake and Output for Last 24 Hours 09/13/19 09/14/19 09/15/19 23:59 23:59 23:59 Intake Total 2591 / 2591 1529 / 1529 Output Total 765 / 765 1290 / 1290 Balance 1826 / 1826 239 / 239 Drainage 140 ml yesterday, 290 ml today. General: Alert, Oriented x3 HEENT: PERRLA, EOMI Oral: Moist Mucosa Neck: Supple Abdomen: Soft, Non-Distended Skin: Incision - breast incisions are dry and intact. Breasts are soft and symmetrical. No clinical evidence of hematoma. Mild bruising on breast skin flaps. Some tenderness with palpation. Neurological: Cranial nerves II-XII grossly intact Psych/Mental Status: Normal Affect, Appropriate Laboratory Results 09/15/19 05:30: Sodium 140, Potassium 4.1, Chloride 107, Carbon Dioxide 29.0, Anion Gap 4 L, BUN 17, Creatinine 0.62, Estim Creat Clear Calc 46.50, Est GFR (MDRD) Af Amer 124, Est GFR (MDRD) Non-Af 102, BUN/Creatinine Ratio 27.6 H, Glucose 133 H, Calcium 8.3 L, Prealbumin 16.4 L 09/15/19 05:30: WBC 9.4, RBC 3.92 L, Hgb 11.6 L, Hct 36.9 L, MCV 94.1, MCH 29.6, MCHC 31.4 L, RDW Std Deviation 45.9 H, RDW Coeff of Brynn 13.3, Plt Count 183, MPV 10.9 Current Medications Acetaminophen (Tylenol) 1,000 mg PO Q6 [facility] Last Admin: 09/15/19 12:31 Dose: 1,000 mg Documented by: Citalopram Hydrobromide (Celexa) 10 mg PO DAILY [facility] Last Admin: 09/15/19 09:43 Dose: 10 mg Documented by: Docusate Sodium (Colace) 200 mg PO DAILY [facility] Last Admin: 09/15/19 09:43 Dose: 200 mg Documented by: Duloxetine HCl (Cymbalta) 20 mg PO DAILY [facility] Last Admin: 09/15/19 09:44 Dose: 20 mg Documented by: Enoxaparin Sodium (Lovenox) 40 mg SC DAILY [facility] Last Admin: 09/15/19 09:44 Dose: 40 mg Documented by: Enteral Nutritional Formula (Ensure Surgery) 237 ml PO TIDCM [facility] Last Admin: 09/15/19 12:32 Dose: 237 ml Documented by: Fluticasone Propionate (Flonase Nasal [place]) 1 spray NASAL DAILY [facility] Last Admin: 09/15/19 09:44 Dose: 1 spray Documented by: Gabapentin (Neurontin) 200 mg PO TIDCM [facility] Last Admin: 09/15/19 12:31 Dose: 200 mg Documented by: Hydromorphone HCl (Dilaudid Inj) 0.5 - 1 mg IV Q3H PRN PRN PRN Reason: Pain Score 6-10/10 Lactated Ringer's () 1,000 mls @ 60 mls/hr IV .[id number] [facility] Last Infusion: 09/15/19 05:55 Dose: 60 mls/hr Documented by: Cefazolin Sodium () 1 gm in 50 mls @ 100 mls/hr IV Q8 [facility] Last Infusion: 09/15/19 05:55 Dose: Infused Documented by: Sodium Chloride () 250 mls @ 15 mls/hr IV .[id number] PRN PRN Reason: Saline Flush Sodium Chloride () 250 mls @ 15 mls/hr IV .[id number] PRN PRN Reason: Additional IVPB Infusion Insulin Human Lispro (Humalog Kwikpen (Bkc)) 1 - 6 unit SC Q4H PRN PRN; Protocol PRN Reason: BG>/= 180, SEE PROTOCOL Lisinopril (Zestril) 10 mg PO DAILY [facility] Last Admin: 09/15/19 09:44 Dose: 10 mg Documented by: Magnesium Oxide (Mag-Ox 400) 400 mg PO BID PRN PRN PRN Reason: Constipation Metoprolol Tartrate (Lopressor (Beta Vee)) 25 mg PO BID [facility] Last Admin: 09/15/19 09:45 Dose: 25 mg Documented by: Ondansetron HCl (Zofran Odt) 4 mg PO Q6 [facility] Last Admin: 09/15/19 12:31 Dose: Not Given Documented by: Oxycodone HCl (Oxyir) 5 - 10 mg PO Q4H PRN PRN PRN Reason: Pain Score 4-1010 Last Admin: 09/15/19 08:49 Dose: 10 mg Documented by: Scopolamine HBr (Transderm-Scop) 1 patch TD Q3D [facility] Stop: 09/15/19 16:01 Last Admin: 09/14/19 15:59 Dose: Not Given Documented by: Sodium Chloride () 10 - 40 ml IV UD PRN PRN Reason: SALINE FLUSH Tolterodine Tartrate (Detrol La) 2 mg PO DAILY [facility] Last Admin: 09/15/19 09:44 Dose: 2 mg Documented by: Medical Necessity - Tobacco Use Smoking Status: Former smoker Tobacco Use: Non-smoker Assessment/Plan All Active Problems (Last Reviewed 07/24/19 @ 20:[address] Jericho Dunn MD) Colitis (Acute) Lower GI bleed (Acute) Urticaria (Acute) 1. Personal history of breast cancer. 2. Left lateral chest wall pain. 3. Late effect radiation to left lateral chest wall. 4. Prophylactic right breast removal. 5. Acquired absence bilateral breasts. 6. Late effect of radiation to the left breast reconstruction in superior pole with painful radiation stepoff deformity. 7. Family history of breast cancer. 8. Status of bilateral breast implants reconstruction. 9. Former smoker. 10. s/p revision left breast reconstruction with excision painful radiation scar contour deformity and placement acellular dermal matrix graft and revision left breast reconstruction with removal of implant with multiple capsulotomies and replacement cohesive gel implant (400 ml) and placement Alloderm Select Restore acellular dermal matrix graft (327 cm2) and revision right breast reconstruction with excision excess mastectomy skin scar contour deformity and revision right breast reconstruction with removal of implant with multiple capsulotomies and replacement cohesive gel implant (350 ml) and placement Alloderm Select Restore acellular dermal matrix graft (327 cm2). Patient complains of incisional pain. Still needs occasional IV analgesia. She is a little unsteady on her feet with ambulation. Breasts are soft and symmetrical. Incisions are dry and intact. No clinical evidence of hematoma. Prealbumin was 16.4. Encourage nutritional supplementation with protein to help the healing process. Keep head elevated/ Continue surgical bra and jhon wrap chest wall compression. Continue lifting restriction. Will keep one more day and encourage ambulation with assist to get more steady on her feet with ambulation. Encourage po analgesia in preparation for discharge.
[2019-09-15] MEDS: 0.9% Saline Lock 10 ML Syringe IV ×2 (13:41→16:52)
--- NOTE | 2019-09-15 13:58 | CASEMGMT ---
Social Work Note SW reviewed chart, pt has history of breast cancer. SW met with pt and introduced self and role at [facility]. Pt is alert and orientated x3. Pt states that she was first diagnosed with breast cancer in 2010. Pt states that she has a family history of cancer. Pt states that her mother had breast cancer, all four of her sisters have had cancer of different kinds and her one brother has cancer. Pt states that only one of her sisters are alive and her brother is alive. Pt states she was the youngest sibling. Pt states that she lives with her who is good support for her. Pt states that her sister and son are also good support. Pt states she doesn't do well in groups and prefers just to talk about her cancer with her family. Pt states it is easy to talk about cancer in her family due to the extensive history of cancer in her family. Pt states that she see's Dr. Alvarez for pain management. Pt states that when she first started to go to Dr. Dunn, he encouraged her to get on mild depressant. Pt states that Dr. Chapman prescribes her current depressive medications. Pt states that she likes to talk and communicate to her family members as they are good support for her. Pt denied additional needs or concerns at this time. SW offered much support to pt throughout conversation. Laila Rogers [employer] MANAGER, MANAGER COMPENSATION
--- NOTE | 2019-09-15 14:49 | CASEMGMT ---
RN DARÍO in to discuss QUINN form with patient. RN CM explained QUINN for to patient, patient voiced understanding. No questions or concerns regarding form. Patient signed form and placed in chart. Copy of signed form provided to patient.
[2019-09-15] MEDS: HYDROmorphone 1 MG/ML Syringe IV (16:52)
[2019-09-16] VITALS (9 sets, daily range): BP systolic 93–121; BP diastolic 52–78; PULSE 74–96; RESP 16–18; TEMP 36.8–37.2; O2SAT 91–96
[2019-09-16] MEDS: Acetaminophen 500 MG Tablet 1000 MG PO ×3 (00:26→15:25)
[2019-09-16] MEDS: Ondansetron ODT 4 MG Tablet PO ×4 (00:26→17:27)
[2019-09-16] MEDS: 0.9% Normal Saline 1,000 ML 999 ML IV (00:26)
[2019-09-16] MEDS: Cefazolin 1 GM/50 ML BAG IV ×3 (06:27→22:18)
[2019-09-16] MEDS: oxyCODONE 5 MG Tablet PO ×4 (06:35→20:38)
[2019-09-16] MEDS: diazePAM 5 MG Tablet PO ×3 (07:54→20:42)
[2019-09-16] MEDS: DULoxetine Hcl 20 MG Capsule PO (07:56)
[2019-09-16] MEDS: Gabapentin 100 MG Capsule 200 MG PO ×3 (07:56→16:05)
[2019-09-16] MEDS: Docusate Sodium 100 MG Capsule 200 MG PO (07:56)
[2019-09-16] MEDS: Tolterodine Tartrate 2 MG CAP.SA PO (07:57)
[2019-09-16] MEDS: Citalopram 10 MG Tablet PO (07:57)
[2019-09-16] MEDS: Fluticasone 0.05% 1 SPRAY NASAL.SRY NASAL (07:57)
[2019-09-16] MEDS: Metoprolol Tartrate 25 MG Tablet PO (08:00)
[2019-09-16] MEDS: Lisinopril 10 MG Tablet PO (08:00)
[2019-09-16] MEDS: Enoxaparin 40 MG/0.4 ML Syringe SC (08:03)
--- NOTE | 2019-09-16 19:35 | PCM.PN.SRG ---
Subjective: Postop #2 Patient has incisional pain. She is a little unsteady on her feet with ambulation. - Physical Exam Vitals/I&O's: Vital Signs Temp Pulse Resp BP Pulse Ox 98.4 F 92 18 100/52 L 95 09/16/19 15:17 09/16/19 15:17 09/16/19 15:17 09/16/19 15:17 09/16/19 15:17 Oxygen Flow Rate (L/min) 2 Oxygen Delivery Method Room Air Weight: 145 lb 1.027 oz Body Mass Index (BMI) 24.9 Intake and Output for Last 24 Hours 09/14/19 09/15/19 09/16/19 23:59 23:59 23:59 Intake Total 2591 / 2591 2867 / 2867 1678.5 / 1678.5 Output Total 765 / 765 2765 / 2765 1695 / 1695 Balance 1826 / 1826 102 / 102 -16.5 / -16.5 Drainage 440 ml yesterday, 45 ml today. General: Alert, Oriented x3 HEENT: PERRLA, EOMI Oral: Moist Mucosa Neck: Supple Abdomen: Soft, Non-Distended Skin: Incision - bilateral breast incisions are dry and intact. Breasts are soft and symmetrical. No clinical evidence of hematoma. Mild bruising on breast skin flaps. Some tenderness to palpation. Neurological: Cranial nerves II-XII grossly intact Psych/Mental Status: Normal Affect, Appropriate Current Medications Acetaminophen (Tylenol) 1,000 mg PO Q6 [facility] Last Admin: 09/16/19 15:25 Dose: 1,000 mg Documented by: Citalopram Hydrobromide (Celexa) 10 mg PO DAILY [facility] Last Admin: 09/16/19 07:57 Dose: 10 mg Documented by: Diazepam (Valium) 5 mg PO Q4H PRN PRN PRN Reason: SPASMS Last Admin: 09/16/19 15:23 Dose: 5 mg Documented by: Docusate Sodium (Colace) 200 mg PO DAILY [facility] Last Admin: 09/16/19 07:56 Dose: 200 mg Documented by: Duloxetine HCl (Cymbalta) 20 mg PO DAILY [facility] Last Admin: 09/16/19 07:56 Dose: 20 mg Documented by: Enoxaparin Sodium (Lovenox) 40 mg SC DAILY [facility] Last Admin: 09/16/19 08:03 Dose: 40 mg Documented by: Enteral Nutritional Formula (Ensure Surgery) 237 ml PO TIDCM [facility] Last Admin: 09/16/19 16:05 Dose: Not Given Documented by: Fluticasone Propionate (Flonase Nasal [place]) 1 spray NASAL DAILY [facility] Last Admin: 09/16/19 07:57 Dose: 1 spray Documented by: Gabapentin (Neurontin) 200 mg PO TIDCM [facility] Last Admin: 09/16/19 16:05 Dose: 200 mg Documented by: Hydromorphone HCl (Dilaudid Inj) 0.5 - 1 mg IV Q3H PRN PRN PRN Reason: Pain Score 6-10/10 Last Admin: 09/15/19 16:52 Dose: 1 mg Documented by: Cefazolin Sodium () 1 gm in 50 mls @ 100 mls/hr IV Q8 [facility] Last Infusion: 09/16/19 16:03 Dose: Infused Documented by: Sodium Chloride () 250 mls @ 15 mls/hr IV .[id number] PRN PRN Reason: Saline Flush Last Infusion: 09/16/19 07:30 Dose: 15 mls/hr Documented by: Sodium Chloride () 250 mls @ 15 mls/hr IV .[id number] PRN PRN Reason: Additional IVPB Infusion Insulin Human Lispro (Humalog Kwikpen (Bkc)) 1 - 6 unit SC Q4H PRN PRN; Protocol PRN Reason: BG>/= 180, SEE PROTOCOL Lisinopril (Zestril) 10 mg PO DAILY [facility] Last Admin: 09/16/19 08:00 Dose: 10 mg Documented by: Magnesium Oxide (Mag-Ox 400) 400 mg PO BID PRN PRN PRN Reason: Constipation Metoprolol Tartrate (Lopressor (Beta Vee)) 25 mg PO BID [facility] Last Admin: 09/16/19 08:00 Dose: 25 mg Documented by: Ondansetron HCl (Zofran Odt) 4 mg PO Q6 [facility] Last Admin: 09/16/19 17:27 Dose: 4 mg Documented by: Oxycodone HCl (Oxyir) 5 - 10 mg PO Q4H PRN PRN PRN Reason: Pain Score 4-10/10 Last Admin: 09/16/19 16:03 Dose: 10 mg Documented by: Sodium Chloride () 10 - 40 ml IV UD PRN PRN Reason: SALINE FLUSH Last Admin: 09/15/19 16:52 Dose: 10 ml Documented by: Tolterodine Tartrate (Detrol La) 2 mg PO DAILY [facility] Last Admin: 09/16/19 07:57 Dose: 2 mg Documented by: Medical Necessity - Tobacco Use Smoking Status: Former smoker Tobacco Use: Non-smoker Assessment/Plan All Active Problems (Last Reviewed 07/24/19 @ 20:[address] Jericho Dunn MD) Colitis (Acute) Lower GI bleed (Acute) Urticaria (Acute) 1. Personal history of breast cancer. 2. Left lateral chest wall pain. 3. Late effect radiation to left lateral chest wall. 4. Prophylactic right breast removal. 5. Acquired absence bilateral breasts. 6. Late effect of radiation to the left breast reconstruction in superior pole with painful radiation stepoff deformity. 7. Family history of breast cancer. 8. Status of bilateral breast implants reconstruction. 9. Former smoker. 10. s/p revision left breast reconstruction with excision painful radiation scar contour deformity and placement acellular dermal matrix graft and revision left breast reconstruction with removal of implant with multiple capsulotomies and replacement cohesive gel implant (400 ml) and placement Alloderm Select Restore acellular dermal matrix graft (327 cm2) and revision right breast reconstruction with excision excess mastectomy skin scar contour deformity and revision right breast reconstruction with removal of implant with multiple capsulotomies and replacement cohesive gel implant (350 ml) and placement Alloderm Select Restore acellular dermal matrix graft (327 cm2). Patient complains of incisional pain. Still needs occasional IV analgesia. She is a little unsteady on her feet with ambulation. Breasts are soft and symmetrical. Incisions are dry and intact. No clinical evidence of hematoma. Prealbumin was 16.4. Encourage nutritional supplementation with protein to help the healing process. Keep head elevated. Continue surgical bra and jhon wrap chest wall compression. Continue lifting restriction. Will keep one more day and encourage ambulation with assist to get more steady on her feet with ambulation. Encourage po analgesia in preparation for discharge.
[2019-09-17] MEDS: Acetaminophen 500 MG Tablet 1000 MG PO ×3 (00:53→12:12)
[2019-09-17] MEDS: Ondansetron ODT 4 MG Tablet PO ×3 (00:54→12:12)
[2019-09-17] MEDS: oxyCODONE 5 MG Tablet PO ×3 (01:04→14:20)
[2019-09-17 03:51] VITALS: BP 107/57; PULSE 79; RESP 16; TEMP 36.7; O2SAT 93
[2019-09-17] MEDS: Cefazolin 1 GM/50 ML BAG IV (06:17)
[2019-09-17 07:43] VITALS: BP 129/69; PULSE 79; RESP 18; TEMP 37.4; O2SAT 93
[2019-09-17] MEDS: Ensure Surgery 237 ML LIQUID PO ×2 (07:52→12:12)
[2019-09-17] MEDS: Gabapentin 100 MG Capsule 200 MG PO ×2 (07:52→12:12)
[2019-09-17] MEDS: Fluticasone 0.05% 1 SPRAY NASAL.SRY NASAL (10:00)
[2019-09-17] MEDS: DULoxetine Hcl 20 MG Capsule PO (10:00)
[2019-09-17] MEDS: Tolterodine Tartrate 2 MG CAP.SA PO (10:00)
[2019-09-17] MEDS: Citalopram 10 MG Tablet PO (10:00)
[2019-09-17] MEDS: Docusate Sodium 100 MG Capsule 200 MG PO (10:00)
[2019-09-17] MEDS: Lisinopril 10 MG Tablet PO (10:01)
[2019-09-17] MEDS: Enoxaparin 40 MG/0.4 ML Syringe SC (10:01)
[2019-09-17 10:02] VITALS: BP 129/69; PULSE 79
[2019-09-17] MEDS: Metoprolol Tartrate 25 MG Tablet PO (10:02)
--- NOTE | 2019-09-17 13:00 | PN.SURG_ITS ---
Subjective: Postop #3 She has more tolerable incisional pain. She is more steady on her feet with ambulation. - Physical Exam Vitals/I&O's: Vital Signs Temp Pulse Resp BP Pulse Ox 99.3 F H 79 18 129/69 H 93 09/17/19 07:43 09/17/19 10:02 09/17/19 07:43 09/17/19 10:02 09/17/19 07:43 Oxygen Flow Rate (L/min) 2 Oxygen Delivery Method Room Air Weight: 145 lb 1.027 oz Body Mass Index (BMI) 24.9 Intake and Output for Last 24 Hours 09/15/19 09/16/19 09/17/19 23:59 23:59 23:59 Intake Total 2867 / 2867 2750.0 / 2750.0 1736.5 / 1736.5 Output Total 2765 / 2765 2965 / 2965 2165 / 2165 Balance 102 / 102 -215.0 / -215.0 -428.5 / -428.5 Drainage 115 ml yesterday, 65 ml today. General: Alert, Oriented x3 HEENT: PERRLA, EOMI Oral: Moist Mucosa Neck: Supple Abdomen: Soft, Non-Distended Skin: Incision - bilateral breast incisions are dry and intact. Breasts are soft and symmetrical. No clinical evidence of hematoma. Mild bruising on breast skin flaps. Mild tenderness to palpation. Neurological: Cranial nerves II-XII grossly intact Psych/Mental Status: Normal Affect, Appropriate Current Medications Acetaminophen (Tylenol) 1,000 mg PO Q6 [facility] Last Admin: 09/17/19 12:12 Dose: 1,000 mg Documented by: Citalopram Hydrobromide (Celexa) 10 mg PO DAILY [facility] Last Admin: 09/17/19 10:00 Dose: 10 mg Documented by: Diazepam (Valium) 5 mg PO Q4H PRN PRN PRN Reason: SPASMS Last Admin: 09/16/19 20:42 Dose: 5 mg Documented by: Docusate Sodium (Colace) 200 mg PO DAILY [facility] Last Admin: 09/17/19 10:00 Dose: 200 mg Documented by: Duloxetine HCl (Cymbalta) 20 mg PO DAILY [facility] Last Admin: 09/17/19 10:00 Dose: 20 mg Documented by: Enoxaparin Sodium (Lovenox) 40 mg SC DAILY [facility] Last Admin: 09/17/19 10:01 Dose: 40 mg Documented by: Enteral Nutritional Formula (Ensure Surgery) 237 ml PO TIDCM [facility] Last Admin: 09/17/19 12:12 Dose: 237 ml Documented by: Fluticasone Propionate (Flonase Nasal [place]) 1 spray NASAL DAILY [facility] Last Admin: 09/17/19 10:00 Dose: 1 spray Documented by: Gabapentin (Neurontin) 200 mg PO TIDCM [facility] Last Admin: 09/17/19 12:12 Dose: 200 mg Documented by: Hydromorphone HCl (Dilaudid Inj) 0.5 - 1 mg IV Q3H PRN PRN PRN Reason: Pain Score 6-10/10 Last Admin: 09/15/19 16:52 Dose: 1 mg Documented by: Cefazolin Sodium () 1 gm in 50 mls @ 100 mls/hr IV Q8 [facility] Last Admin: 09/17/19 06:17 Dose: 100 mls/hr Documented by: Sodium Chloride () 250 mls @ 15 mls/hr IV .[id number] PRN PRN Reason: Saline Flush Last Infusion: 09/17/19 10:04 Dose: 0 mls/hr Documented by: Sodium Chloride () 250 mls @ 15 mls/hr IV .[id number] PRN PRN Reason: Additional IVPB Infusion Insulin Human Lispro (Humalog Kwikpen (Bkc)) 1 - 6 unit SC Q4H PRN PRN; Protocol PRN Reason: BG>/= 180, SEE PROTOCOL Lisinopril (Zestril) 10 mg PO DAILY [facility] Last Admin: 09/17/19 10:01 Dose: 10 mg Documented by: Magnesium Oxide (Mag-Ox 400) 400 mg PO BID PRN PRN PRN Reason: Constipation Metoprolol Tartrate (Lopressor (Beta Vee)) 25 mg PO BID [facility] Last Admin: 09/17/19 10:02 Dose: 25 mg Documented by: Ondansetron HCl (Zofran Odt) 4 mg PO Q6 [facility] Last Admin: 09/17/19 12:12 Dose: 4 mg Documented by: Oxycodone HCl (Oxyir) 5 - 10 mg PO Q4H PRN PRN PRN Reason: Pain Score 4-5/10 Last Admin: 09/17/19 07:52 Dose: 5 mg Documented by: Sodium Chloride () 10 - 40 ml IV UD PRN PRN Reason: SALINE FLUSH Last Admin: 09/15/19 16:52 Dose: 10 ml Documented by: Tolterodine Tartrate (Detrol La) 2 mg PO DAILY [facility] Last Admin: 09/17/19 10:00 Dose: 2 mg Documented by: Medical Necessity - Tobacco Use Smoking Status: Former smoker Tobacco Use: Non-smoker Assessment/Plan All Active Problems (Last Reviewed 07/24/19 @ 20:[address] Jericho Dunn MD) Colitis (Acute) Lower GI bleed (Acute) Urticaria (Acute) 1. Personal history of breast cancer. 2. Left lateral chest wall pain. 3. Late effect radiation to left lateral chest wall. 4. Prophylactic right breast removal. 5. Acquired absence bilateral breasts. 6. Late effect of radiation to the left breast reconstruction in superior pole with painful radiation stepoff deformity. 7. Family history of breast cancer. 8. Status of bilateral breast implants reconstruction. 9. Former smoker. 10. s/p revision left breast reconstruction with excision painful radiation scar contour deformity and placement acellular dermal matrix graft and revision left breast reconstruction with removal of implant with multiple capsulotomies and replacement cohesive gel implant (400 ml) and placement Alloderm Select Restore acellular dermal matrix graft (327 cm2) and revision right breast reconstruction with excision excess mastectomy skin scar contour deformity and revision right breast reconstruction with removal of implant with multiple capsulotomies and replacement cohesive gel implant (350 ml) and placement Alloderm Select Restore acellular dermal matrix graft (327 cm2). Patient has mild incisional pain. She is tolerating po analgesia. She is more steady on her feet with ambulation. Breasts are soft and symmetrical. Incisions are dry and intact. No clinical evidence of hematoma. Prealbumin was 16.4. Encourage nutritional supplementation with protein to help the healing process. Keep head elevated. Continue surgical bra and jhon wrap chest wall compression. Continue lifting restriction. Discharge home today. Wrote scripts for Cefadroxil and Probiotic until the drains are removed. Wrote scripts for Dilaudid for pain (40 tabs) and for Valium for spasm (30 tabs). Wrote scripts for Zofran for nausea (30 tabs) and a refill and for Colace for constipation (30 tabs). Followup office one week.
--- NOTE | 2019-09-17 13:50 | DCINST_ITS ---
You will use the following diet at home:: No restrictions, Other - encourage nutritional supplementation with protein to help the healing process. Discharge Activity: May not drive while taking narcotic pain medications., May Not Shower - until the drains are removed., - - keep head elevated. continue lifting restriction. continue surgical bra and jhon wrap compression. May shower in (days): 14 - after the drains are removed. May resume sexual activity in: 10-14 days Weight Bearing Status: Weight bearing as tolerated Lifting Restrictions: 20 lbs. Keep extremity elevated above heart level: - - elevate head. Call your doctor if your incision/area has: Continuous Slow Oozing, Sudden Increased Bleeding, Increased Pain/ Swelling, Increased Redness, Foul Smelling Discharge, Swelling at the incision site Call your doctor if you observe: Fever of 101 or Higher, Coldness, Increased Pain, Shortness of breath, Chest pain, Calf discomfort, Uncontrolled pain Suture Line Care: - - dry dressings every other day. Change Dressing in (Days):: 2 - dry dressings every other day Cleanse incision/area with: - - may get incisions wet in the shower after the drains are removed. Drain: Suction - queenie drain to bulb suction. empty and record output daily. Allergies/Adverse Reactions: Allergies meperidine HCl [From Demerol] Allergy (Verified 09/14/19 08:04) Hives tamoxifen [Tamoxifen] Allergy (Verified 09/14/19 08:04) Hives hydrocodone bitartrate [From Vicodin] Adverse Reaction (Verified 09/14/19 08:04) Vomiting hylan G-F 20 [From Synvisc] Adverse Reaction (Verified 09/14/19 08:04) Swelling Medications to take at Discharge Citalopram Hydrobromide [Celexa] 10 mg PO DAILY 06/07/13 Duloxetine Hcl [Cymbalta] 20 mg PO DAILY 03/06/15 Lisinopril [Zestril] 10 mg PO DAILY 03/06/15 Metoprolol Tartrate [Lopressor (beta [place])] 25 mg PO BID 03/06/15 fluticasone propionate 50 mcg/actuation nasal spray,suspension 1 spray INTRANASAL DAILY 10/13/17 Oxybutynin Chloride [Ditropan Xl] 10 mg PO DAILY 11/26/17 Cholecalciferol (VIT D3) [Vitamin D3] 1,000 unit PO DAILY 09/09/19 Oxycodone HCl/Acetaminophen [Oxycodone-Acetaminophen 10-325] 1 ea PO TID 09/09/19 Cefadroxil [Duricef] 500 mg PO BID #30 cap 09/17/19 Diazepam [Valium] 5 mg PO 4X/DAY PRN PRN #30 tablet 09/17/19 Docusate Sodium [Colace] 200 mg PO DAILY #30 cap 09/17/19 HYDROmorphone tablet [Dilaudid] 2 mg PO Q4H PRN PRN 7 Days #40 tablet 09/17/19 Lactobacillus Acidophilus [Probiotic Acidophilus] 1 ea PO BID #30 tab 09/17/19 Ondansetron HCl [Zofran] 4 mg PO Q6H PRN PRN #30 tab 09/17/19 The following prescriptions were given: Docusate Sodium [Colace] 200 mg PO DAILY #30 [place] [facility] [place] [Dilaudid] 2 mg PO Q4H PRN PRN 7 Days #40 tablet PRN Reason: Pain Score 4-5/10 [place] [facility] [place]ef[place]il [Duricef] 500 mg PO BID #30 cap [place]: [place] [facility] [place] Lactobacillus Acidophilus [Probiotic Acidophilus] 1 ea PO BID #30 tab [place] [facility] [place]am [Valium] 5 mg PO 4X/DAY PRN PRN #30 tablet PRN Reason: Spasms [place] [facility] [place]dans[place] HCl [Zofran] 4 mg PO Q6H PRN PRN #30 tab PRN Reason: Nausea [place] [facility] [place] to be completed after discharge: 12 Lead EKG [[facility]] Time Frame: 09/09/19, Facility: [facility], Location: Cardiovascular Services CBC-Complete Blood Cnt No Diff Time Frame: 09/09/19, Facility: [facility], Location: Laboratory Liver Profile Time Frame: 09/09/19, Facility: [facility], Location: Laboratory Magnesium Time Frame: 09/14/19, Facility: [facility], Location: Laboratory Partial Thromboplast Time Time Frame: 09/09/19, Facility: [facility], Location: Laboratory Prothrombin Time w/INR Time Frame: 09/09/19, Facility: [facility], Location: Laboratory Primary Care Physician: Lexie Chapman MD [Primary Care Provider] - Test Results: Test results from this visit will be discussed in further detail at your follow- up appointment, if applicable. Please Follow Up With: Jericho Dunn MD When: one week. call [phone] for appt. Proposed Discharge Date: 09/17/19
[2019-09-17 13:53] VITALS: BP 129/69; PULSE 79; RESP 20; TEMP 37.4; O2SAT 93
--- NOTE | 2019-09-17 19:50 | PCM.DC.SUM ---
Discharge Date and Diagnosis Date of Admission: 09/14/19 Date of Discharge: 09/17/19 - Primary Discharge Diagnosis Left breast cancer. Late effect of radiation to the left breast reconstruction in superior pole with painful radiation stepoff deformity. Deformity reconstructed right breast excess mastectomy skin scar contour deformity. 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, sequela Former smoker painful contour deformity lateral pectoralis aspect left breast reconstruction deformity left breast reconstruction with latissimus flap pincushioning and inferior dimpling deformity right breast reconstruction with asymmetric lowered inframammary fold Disproportion of reconstructed breast Acquired absence of bilateral breasts and nipples status bilateral breast implants reconstruction left lateral chest wall rib pain HTN (hypertension) Depression Anxiety Urinary incontinence Genital pruritus Family history of breast cancer Hospital Course and Treatment Imaging Results: None. CONSULTATIONS None. Operations: - - Surgery 09/14/19 - 1. Revision left breast reconstruction with excision painful radiation scar contour deformity and placement acellular dermal matrix graft. 2. Revision left breast reconstruction with removal of implant with multiple capsulotomies and replacement cohesive gel implant (400 ml) and placement Alloderm Select Restore acellular dermal matrix graft (400 cm2). 3. Revision right breast reconstruction with excision excess mastectomy skin scar contour deformity. 4. Revision right breast reconstruction with removal of implant with multiple capsulotomies and replacement cohesive gel implant (350 ml) and placement Alloderm Select Restore acellular dermal matrix graft (400 cm2). Procedures: None Summary of Care Provided: Comes in today for evaluation of her breast reconstruction. 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 Some pain is noted when ther area is bumped or palpated. Her intermittent spasm is lessening. She denies any fever. She states she is off the Aromasin. She had revision breast reconstruction surgery in 05/24 where she underwent revision left breast reconstruction with excision painful radiation scar contour deformity and placement FlexHD acellular dermal matrix graft and revision left breast reconstruction with capsulectomy and replacement cohesive gel implant (430 ml) and placement FlexHD acellular dermal matrix graft inferolateral sling and revision left latissimus dorsi myocutaneous flap breast reconstruction radiation scar pincushion contour deformity with multiple W-plasty (10.4 cm2) and revision right breast reconstruction with excision excess mastectomy skin scar contour deformity and capsulectomy and replacement cohesive gel implant (430 ml) and revision asymmetric inframammary fold right breast reconstruction with internal capsular plication advancement flap (19.5 cm2) and placement FlexHD acellular dermal matrix graft inferolateral sling. Along with her radiation stepoff deformity in the superior pole of her left breast reconstruction, she still has persistent firmness in her left axilla extending onto the lateral aspect of the pectoralis major muscle also a late effect of her radiation therapy. She has noticed that event in a bra the radiation stepoff deformity is still visible. The overall shape of the breast is symmetrical with the right. She still gets periodic [facility]. She was taken to surgery on 09/14/19 where she underwent revision left breast reconstruction with excision painful radiation scar contour deformity and placement acellular dermal matrix graft and revision left breast reconstruction with removal of implant with multiple capsulotomies and replacement cohesive gel implant (400 ml) and placement Alloderm Select Restore acellular dermal matrix graft (400 cm2) and revision right breast reconstruction with excision excess mastectomy skin scar contour deformity and revision right breast reconstruction with removal of implant with multiple capsulotomies and replacement cohesive gel implant (350 ml) and placement Alloderm Select Restore acellular dermal matrix graft (400 cm2). She tolerated the procedure well. She was afebrile during her hospital stay. Her drainage ranged from 440 ml down to 65 ml at discharge. She had incisional pain that needed additional IV analgesia. She was also unsteady on her feet that needed an extra day of ambulation with assist to get more steady on her feet with ambulation in preparation for discharge. Breasts were soft and symmetrical during her hospital stay. Incisions were dry and intact. There was no clinical evidence of hematoma. Mild bruising seen on the breast skin flaps that was resolving at discharge. Prealbumin was 16.4. Encourage nutritional supplementation with protein to help the healing process. On the third postop day, she was more steady on her feet with ambulation and was tolerating po analgesia. She was discharged home in satisfactory condition. Keep head elevated. Continue surgical bra and jhon wrap chest wall compression. Continue lifting restriction. Wrote scripts for Cefadroxil and Probiotic until the drains are removed. Wrote scripts for Dilaudid for pain (40 tabs) and for Valium for spasm (30 tabs). Wrote scripts for Zofran for nausea (30 tabs) and a refill and for Colace for constipation (30 tabs). Followup office one week. - Physical Exam Vitals/I&O's: Vital Signs Temp Pulse Resp BP Pulse Ox 99.3 F H 79 20 H 129/69 H 93 09/17/19 13:53 09/17/19 13:53 09/17/19 13:53 09/17/19 13:53 09/17/19 13:53 Oxygen Flow Rate (L/min) 2 Oxygen Delivery Method Room Air Weight: 145 lb 1.027 oz Body Mass Index (BMI) 24.9 Intake and Output for Last 24 Hours 09/15/19 09/16/19 09/17/19 23:59 23:59 23:59 Intake Total 2867 / 2867 2750.0 / 2750.0 1736.5 / 1736.5 Output Total 2765 / 2765 2965 / 2965 2165 / 2165 Balance 102 / 102 -215.0 / -215.0 -428.5 / -428.5 Discharge Diet: No Restrictions, - - encourage nutritional supplementation with protein to help the healing process. Discharge Activity: May not drive while taking narcotic pain medications., May Not Shower - until the drains are removed., - - keep head elevated. continue lifting restriction. continue surgical bra and jhon wrap compression. May shower in (days): 14 - after the drains are removed. May resume sexual activity in: 10-14 days Weight Bearing Status: Weight bearing as tolerated Lifting Restrict to (lbs):: 20 Keep extremity elevated above heart level: - - elevate head. Call your doctor if your incision/area has: Continuous Slow Oozing, Sudden Increased Bleeding, Increased Pain/ Swelling, Increased Redness, Foul Smelling Discharge, Swelling at the incision site Call your doctor if you observe: Fever of 101 or Higher, Coldness, Increased Pain, Shortness of breath, Chest pain, Calf discomfort, Uncontrolled pain Suture Line Care: - - dry dressings every other day. Change Dressing in (Days):: 2 - dry dressings every other day Cleanse incision/area with: - - may get incisions wet in the shower after the drains are removed. Drain: Suction - queenie drain to bulb suction. empty and record output daily. Home Medications: Medications to take at Discharge Citalopram Hydrobromide [Celexa] 10 mg PO DAILY 06/07/13 Duloxetine Hcl [Cymbalta] 20 mg PO DAILY 03/06/15 Lisinopril [Zestril] 10 mg PO DAILY 03/06/15 Metoprolol Tartrate [Lopressor (beta savannah)] 25 mg PO BID 03/06/15 fluticasone propionate 50 mcg/actuation nasal spray,suspension 1 spray INTRANASAL DAILY 10/13/17 Oxybutynin Chloride [Ditropan Xl] 10 mg PO DAILY 11/26/17 Cholecalciferol (VIT D3) [Vitamin D3] 1,000 unit PO DAILY 09/09/19 Oxycodone HCl/Acetaminophen [Oxycodone-Acetaminophen 10-325] 1 ea PO TID 09/09/19 Cefadroxil [Duricef] 500 mg PO BID #30 cap 09/17/19 Diazepam [Valium] 5 mg PO 4X/DAY PRN PRN #30 tab 09/17/19 Docusate Sodium [Colace] 200 mg PO DAILY #30 cap 09/17/19 HYDROmorphone tablet [Dilaudid] 2 mg PO Q4H PRN PRN 7 Days #40 tab 09/17/19 Lactobacillus Acidophilus [Probiotic Acidophilus] 1 ea PO BID #30 tab 09/17/19 Ondansetron HCl [Zofran] 4 mg PO Q6H PRN PRN #30 tab 09/17/19 Following Prescrptions Were Given to Patient: Docusate Sodium [Colace] 200 mg PO DAILY #30 cap Transmission Status: Received by [facility] HYDROmorphone tablet [Dilaudid] 2 mg PO Q4H PRN PRN 7 Days #40 tab PRN Reason: Pain Score 4-5/10 Transmission Status: Received by [facility] Cefadroxil [Duricef] 500 mg PO BID #30 cap Transmission Status: Received by [facility] Lactobacillus Acidophilus [Probiotic Acidophilus] 1 ea PO BID #30 tab Transmission Status: Received by [facility] Diazepam [Valium] 5 mg PO 4X/DAY PRN PRN #30 tab PRN Reason: Spasms Transmission Status: Received by [facility] Ondansetron HCl [Zofran] 4 mg PO Q6H PRN PRN #30 tab PRN Reason: Nausea Transmission Status: Received by [facility] Other Amb Orders: 12 Lead EKG [CVS] Time Frame: 09/09/19, Facility: [facility], Location: Cardiovascular Services CBC-Complete Blood Cnt No Diff Time Frame: 09/09/19, Facility: [facility], Location: Laboratory Liver Profile Time Frame: 09/09/19, Facility: [facility], Location: Laboratory Magnesium Time Frame: 09/14/19, Facility: [facility], Location: Laboratory Partial Thromboplast Time Time Frame: 09/09/19, Facility: [facility], Location: Laboratory Prothrombin Time w/INR Time Frame: 09/09/19, Facility: [facility], Location: Laboratory Primary Care Physician: Lexie Chapman MD [Primary Care Provider] - Please Follow Up With: Jericho Dunn MD When: one week. call [phone] for appt. Disposition: Home Minutes spent on discharge:: 35 Patient Condition:: Stable Medical Necessity - Tobacco Use Smoking Status: Former smoker Tobacco Use: Non-smoker Meaningful Use Info Meaningful Use Diagnoses (Choose all that apply): None applicable
== END 2019-09-17 14:42 | disposition home or self-care (01) ==
LOC: SDC 16:07 → MS3 16:07
PROVIDERS: Anesthesiology; Admitting Provider Surgery; PCP Internal Medicine; Referring Provider Surgery; Visit Provider Surgery
PROC: (CPT 15777; principal; 2019-09-14 09:10)
DX: C50.912 Malignant neoplasm of unspecified site of left female breast (principal); T66.XXXS Radiation sickness, unspecified, sequela; Y84.2 Radiological procedure and radiotherapy as the cause of abnormal reaction of the patient, or of later complication, without mention of misadventure at the time of the procedure; N65.0 Deformity of reconstructed breast; I10 Essential (primary) hypertension; M19.90 Unspecified osteoarthritis, unspecified site; F41.9 Anxiety disorder, unspecified; R07.89 Other chest pain; F32.9 Major depressive disorder, single episode, unspecified; Z87.891 Personal history of nicotine dependence; Z80.3 Family history of malignant neoplasm of breast; Z85.3 Personal history of malignant neoplasm of breast; Z79.899 Other long term (current) drug therapy; Z87.19 Personal history of other diseases of the digestive system
CPT/HCPCS: 00402; 15777; 19342; 19380; 36415; 71046; 80048; 80076; 82962; 83735; 84134; 85027; 85610; 85730; 88304; 88305; 93005; 96361; 96365; 96366; 96372; 96375; 96376; 99218; 99251; J7030; J7050; J7120; A4216; G0378; G0379; G0463; J2405; J3475; Q9968

== ENCOUNTER → 2020-01-04 17:01 | Outpatient (CLI) | payer OTHER, SELFPAY ==
[2019-12-08 14:19] VITALS: BMI 24.9
[2020-01-04 17:29] LABS: Amphetamine Urine VISTA NEGATIVE (<1000 ng/mL); Barbiturate Urine VISTA NEGATIVE (< 200 ng/mL); Benzodiazepine Urine VISTA NEGATIVE (< 200 ng/mL); Cocaine Urine VISTA NEGATIVE (< 300 ng/mL); Ecstacy Urine VISTA NEGATIVE (< 500 ng/mL); Methadone Urine VISTA NEGATIVE (< 300 ng/mL); PCP Urine VISTA NEGATIVE (< 25 ng/mL); THC Urine VISTA NEGATIVE (< 50 ng/mL); Vista UDS pH Range 6
== END ==
PROVIDERS: PCP Internal Medicine; Referring Provider Anesthesiology Pain Medicine; Visit Provider Anesthesiology Pain Medicine
DX: F11.20 Opioid dependence, uncomplicated (principal)
CPT/HCPCS: 80307

== ENCOUNTER → 2020-09-25 15:15 | Outpatient (CLI) | payer OTHER, SELFPAY ==
[2020-07-13 16:41] VITALS: BMI 24.3
[2020-09-25 16:57] LABS: Amphetamine Urine VISTA NEGATIVE (<1000 ng/mL); Barbiturate Urine VISTA NEGATIVE (< 200 ng/mL); Benzodiazepine Urine VISTA NEGATIVE (< 200 ng/mL); Cocaine Urine VISTA NEGATIVE (< 300 ng/mL); Ecstacy Urine VISTA NEGATIVE (< 500 ng/mL); Methadone Urine VISTA NEGATIVE (< 300 ng/mL); PCP Urine VISTA NEGATIVE (< 25 ng/mL); THC Urine VISTA NEGATIVE (< 50 ng/mL); Vista UDS pH Range 6
== END ==
PROVIDERS: PCP Internal Medicine; Visit Provider Anesthesiology Pain Medicine
DX: F11.20 Opioid dependence, uncomplicated (principal)
CPT/HCPCS: 80307

== ENCOUNTER → 2020-10-04 13:14 | Outpatient (CLI) | payer OTHER, SELFPAY ==
[2020-07-13 16:41] VITALS: BMI 24.3
[2020-10-04 14:03] LABS: Anion Gap 2 (5-15); BUN 22 mg/dL (7-18); BUN/Creat Ratio 26.3 RATIO (10-20); Calcium,Total 9.7 mg/dL (8.5-10.1); Chloride 104 mmol/L (98-107); Cholesterol 228 mg/dL (200); Creatinine, Serum 0.84 mg/dL (0.55-1.02); EST Glomerular Filtration Rate 72 mL/min (>60); Est Glom Filt Rate - Afr Amer 87 mL/min (>60); Glucose 99 mg/dL (74-106); High Density Lipoprotein 92 mg/dL; Potassium 4.4 mmol/L (3.5-5.1); Sodium Level 137 mmol/L (136-145); Triglycerides 67 mg/dL; Very Low Density Lipoprotein 13 mg/dL (5-40)
== END ==
PROVIDERS: PCP Internal Medicine; Visit Provider Internal Medicine
DX: I10 Essential (primary) hypertension (principal)
CPT/HCPCS: 36415; 80048; 80061

== ENCOUNTER → 2021-12-20 | Outpatient (CLI) | payer BC, SELFPAY ==
[2021-12-20 18:18] LABS: Amphetamine Urine VISTA NEGATIVE (<1000 ng/mL); Barbiturate Urine VISTA NEGATIVE (< 200 ng/mL); Benzodiazepine Urine VISTA NEGATIVE (< 200 ng/mL); Cocaine Urine VISTA NEGATIVE (< 300 ng/mL); Ecstacy Urine VISTA NEGATIVE (< 500 ng/mL); Methadone Urine VISTA NEGATIVE (< 300 ng/mL); PCP Urine VISTA NEGATIVE (< 25 ng/mL); THC Urine VISTA NEGATIVE (< 50 ng/mL); Vista UDS pH Range 6
== END | disposition home or self-care (01) ==
LOC: LAB 17:09
PROVIDERS: PCP Internal Medicine; Visit Provider Anesthesiology Pain Medicine
DX: F11.20 Opioid dependence, uncomplicated (principal)
CPT/HCPCS: 80307

== ENCOUNTER → 2023-02-14 | Outpatient (CLI) | payer MEDICARE, SELFPAY ==
--- NOTE | 2023-02-14 12:35 | MRI_ITS ---
STUDY: BILATERAL BREAST MR WITHOUT AND WITH CONTRAST REASON FOR EXAM: Female, 72 years old. History of breast cancer status post bilateral mastectomy with silicone implant placement. Evaluate for recurrence. TECHNIQUE: Multi-sequence multi-echo imaging of both breasts was performed with a dedicated breast coil. T1-weighted and T2-weighted images were performed before the administration of contrast. T1-weighted images were also performed after the intravenous administration of 11cc of CLARISCAN contrast. COMPARISON: Prior report of breast MRI with contrast dated May 11, 2010. FINDINGS: Changes of bilateral mastectomy with bilateral silicone implant placement. No residual glandular tissue identified. No abnormal enhancing masses or areas of non-mass enhancement in the right breast. No enlarged or abnormal lymph nodes. No abnormality in the visualized regions of the chest or liver. MRI/Breast Bilateral W/O and W IMPRESSION: Bilateral mastectomies with silicone implant placement. No other abnormality present. CATEGORY: BIRADS Category 2: Benign. A letter regarding these results will be sent to the patient by the facility within 30 days. Electronically Signed: Reji Andrade MD at 9:34 EDT ,
[2023-02-14 13:27] LABS: CREATININE FINGERSTICK < 0.9 mg/dL (0.55-1.02); EGFR FINGERSTICK > 60.0000 mL/min (>60)
== END | disposition home or self-care (01) ==
PROVIDERS: PCP Internal Medicine; Referring Provider Internal Medicine; Visit Provider Internal Medicine
DX: Z08 Encounter for follow-up examination after completed treatment for malignant neoplasm (principal); Z90.13 Acquired absence of bilateral breasts and nipples; Z85.3 Personal history of malignant neoplasm of breast
CPT/HCPCS: 77049; A9575; A4216; C8908

== ENCOUNTER → 2023-08-20 | Outpatient (CLI) | payer MEDICARE, SELFPAY ==
--- NOTE | 2023-08-20 12:53 | MRI_ITS ---
EXAM: MR THORACIC SPINE WITHOUT INTRAVENOUS CONTRAST CLINICAL INDICATION: RADICULOPATHY TECHNIQUE: Multiplanar and multisequence MR images of the thoracic spine without intravenous contrast. COMPARISON: No relevant prior studies available. FINDINGS: VERTEBRAE: Mild to moderate vertebral body osteophytosis at the midthoracic level. No fracture. Mild accentuated of the thoracic kyphosis without significant compression deformity of the vertebral bodies. DISCS/SPINAL CANAL/NEURAL FORAMINA: Normal disc height and morphology. Normal spinal canal and neuroforamina. SPINAL CORD: Normal. Normal in signal and morphology. Normal conus medullaris. SOFT TISSUES: Normal. MRI/Spine Thoracic (Routine) IMPRESSION: Mild spondylosis without spinal or neural foraminal narrowing. Otherwise unremarkable MRI of the thoracic spine. Electronically Signed: Ti Christy MD at 16:54 EST ,
--- OUTSIDE RECORDS SUMMARY | 2023-08-20 13:01 | XMS RPT_ITS | CCD ---
Author Name Unknown Address [address] [place] [address] Organization [facility] Care Team Providers Care Procedure Manager Name Role Phone Anna Chapman MD Primary Care Provider JEMIMA ROSA Referring Unavailable ANNA CHAPMAN Primary Care Unavailable ANNA CHAPMAN Attending Unavailable ANNA CHAPMAN Primary Care Unavailable JEMIMA ROSA Attending Unavailable ANNA CHAPMAN Primary Care Unavailable Allergies Allergy Classification Reported Allergen(s) Allergy Type Date of Onset Reaction(s) Facility (12 sources) Acetaminophen / HYDROcodone; Translations: [HYDROCODONE-ACETA MINOPHEN] Drug Allergy 07-17-2010 GI Upset [facility] (12 sources) HYLAN G-F 20; Translations: [HYLAN G-F 20] Drug Allergy 10-29-2010 [facility] Work Phone: (12 sources) Meperidine; Translations: [MEPERIDINE (PF)] Drug Allergy 06-02-2006 [facility] Work Phone: (12 sources) Tamoxifen; Translations: [TAMOXIFEN] Drug Allergy 11-12-2011 Rash, [facility] (9 sources) HYDROcodone; Translations: [HYDROCODONE BITARTRATE] Drug Allergy 09-14-2019 [facility] Work Phone: Medications Current Medications Medication Drug Class(es) Dates Sig (Normalized) Sig (Original) iv contrast (will be provided with radiology test) (1 source) Start: 01-20-2023 End: 01-21-2023 iv contrast (will be provided with radiology test) Indications: History of breast cancer , ER+ (estrogen receptor positive status) MRI Breast BRYAN Inject, intravenously, once for 1 dose. No IV access, insert saline lock prior to the beginning of sedation, infusion, injection of imaging exam. Discontinue saline lock post exam. If Pt has a central line or IVAD, may access for administration according to line specific nursing protocol. Once exam is complete flush line and de-access according to line specific nursing protocol in the MR contrast administration guidelines link 1 Each 0 01/20/2023 01/21/2023 Active Completed/Discontinued Medications Medication Drug Class(es) Dates Sig (Normalized) Sig (Original) calcium carbonate-Vit D3-minerals 600 mg calcium- 400 unit Tab (11 sources) Start: 03-01-2013 take 1 tablet by mouth twice daily calcium carbonate-Vit D3-minerals 600 mg calcium- 400 unit Tab Take 1 tablet by mouth twice daily. 0 03/01/2013 Active Problems Active Problems Problem Classification Problem Date Documented Da te Episodic/Chronic Anxiety disorders (3 sources) Mixed anxiety and depressive disorder; Translations: [Anxiety disorder, unspecified] Onset: 06-25-2023 Chronic Essential hypertension (16 sources) Hypertensive disorder; Translations: [Essential (primary) hypertension] Onset: 05-06-2018 Chronic Genitourinary symptoms and ill-defined conditions (1 source) Urge incontinence of urine; Translations: [Urge incontinence] Chronic Headache; including migraine (2 sources) Sinus headache; Translations: [Sinus headache] Onset: 06-25-2023 Episodic Immunizations and screening for infectious disease (2 sources) Encounter for immunization; Translations: [Encounter for immunization] Onset: 06-25-2023 Episodic Mood disorders (15 sources) Major depression in full remission; Translations: [Major depressive disorder, single episode, in full remission] Onset: 05-16-2018 05-16-2018 Chronic Mood disorders (1 source) Mood disorders; Translations: [Anxiety and depression] Onset: 06-25-2023 Nutritional deficiencies (14 sources) Vitamin D deficiency; Translations: [Vitamin D deficiency, unspecified] Onset: 10-29-2010 10-29-2010 Chronic Other aftercare (1 source) Encounter for therapeutic drug level monitoring; Translations: [Encounter for therapeutic drug monitoring] Onset: 06-25-2023 Episodic Other bone disease and musculoskeletal deformities (1 source) Osteopenia; Translations: [Other specified disorders of bone density and structure, unspecified site] Episodic Other diseases of bladder and urethra (2 sources) Bladder irritability; Translations: [Other specified disorders of bladder] Chronic Other diseases of bladder and urethra (1 source) Other specified disorders of bladder; Translations: [Bladder irritability] Onset: 06-25-2023 Chronic Residual codes; unclassified (7 sources) History of bilateral breast implants; Translations: [Breast implant status] Onset: 07-02-2013 07-02-2013 Chronic Residual codes; unclassified (2 sources) Postmenopausal state; Translations: [Asymptomatic menopausal state] Episodic Past or Other Problems Problem Classification Problem Date Documented Da te Episodic/Chronic Cancer of breast (12 sources) History of malignant neoplasm of breast; Translations: [Personal history of malignant neoplasm of breast] Onset: 02-17-2012 07-02-2021 Episodic Nonmalignant breast conditions (11 sources) Solitary cyst of breast; Translations: [Solitary cyst of unspecified breast] Onset: 07-10-2006 07-10-2006 Episodic Other screening for suspected conditions (not mental disorders or infectious disease) (16 sources) Patient encounter status; Translations: [Encounter for screening for malignant neoplasm of colon] Onset: 12-25-2006 12-25-2006 Episodic Residual codes; unclassified (12 sources) Estrogen receptor positive tumor; Translations: [Estrogen receptor positive status [ER+]] Onset: 08-02-2010 08-02-2010 Episodic Residual codes; unclassified (11 sources) Family history of cancer of colon; Translations: [Family history of malignant neoplasm of digestive organs] Onset: 03-11-2013 03-11-2013 Episodic Results Test Name Value Interpretation Reference Range Facil ity Vital Signs Date Time Vital Sign Value Performing Clinician Levon garcia 01-20-2023 14:34-0400 Body weight 58.06 kg Jemima Rosa APRN.CNP Work Phone: [facility] 01-20-2023 14:34-0400 Diastolic blood pressure 60 mm[Hg] Jemima Rosa APRN.CNP Work Phone: [facility] 01-20-2023 14:34-0400 Heart rate 80 /min Jemima Rosa APRN.CNP Work Phone: [facility] 01-20-2023 14:34-0400 Respiratory rate 16 /min Jemima Rosa APRN.CNP Work Phone: [facility] 01-20-2023 14:34-0400 SaO2% (BldA) [Mass fraction] 95 % Jemima Rosa BIOMEDICAL SPECIALIST.TRESTLE MECHANIC Work Phone: [facility] 01-20-2023 14:34-0400 Systolic blood pressure 94 mm[Hg] Jemima Rosa BIOMEDICAL SPECIALIST.TRESTLE MECHANIC Work Phone: [facility] 01-15-2022 11:13-0400 Body height 172.7 cm Indy Lara BIOMEDICAL SPECIALIST.CONFERENCE SERVICES MANAGER Work Phone: [facility] 01-15-2022 11:13-0400 Body weight 61.24 kg Indy Lara BIOMEDICAL SPECIALIST.CONFERENCE SERVICES MANAGER Work Phone: [facility] 01-15-2022 11:13-0400 Diastolic blood pressure 70 mm[Hg] Indy Lara BIOMEDICAL SPECIALIST.CONFERENCE SERVICES MANAGER Work Phone: [facility] 01-15-2022 11:13-0400 Heart rate 60 /min Indy Lara BIOMEDICAL SPECIALIST.CONFERENCE SERVICES MANAGER Work Phone: [facility] 01-15-2022 11:13-0400 Respiratory rate 16 /min Indy Lara BIOMEDICAL SPECIALIST.CONFERENCE SERVICES MANAGER Work Phone: [facility] 01-15-2022 11:13-0400 Systolic blood pressure 116 mm[Hg] Indy Lara BIOMEDICAL SPECIALIST.CONFERENCE SERVICES MANAGER Work Phone: [facility] Encounters Encounter Date Encounter Type Care Provider Facility Start: 06-25-2023 End: 06-26-2023 ambulatory JEMIMA ROSA Facility:[facility] Start: 06-25-2023 End: 06-26-2023 ambulatory ANNA CHAPMAN Facility:[facility] Start: 02-17-2023 Telephone encounter Jemima gonzalez BIOMEDICAL SPECIALIST.TRESTLE MECHANIC Work Phone: [facility] Procedures Date Procedure Procedure Detail Performing Clinician Start: 07-09-2022 Dxa bone density juan dy 1/> sites axial erwin Chapman MD Work Phone: Start: 11-10-2018 Lipid 1996 panel - S tiffanie or Plasma Bone Wstr Work Phone: Start: 02-02-2018 Colonoscopy Indy clark BIOMEDICAL SPECIALIST.CONFERENCE SERVICES MANAGER Work Phone: Start: 07-02-2013 History of augmentat ion of breast S/P bilateral breast implants Indy Lara BIOMEDICAL SPECIALIST.CONFERENCE SERVICES MANAGER Work Phone: Plan of Treatment Date Care Activity Detail Author Start: 06-24-2025 DIABETES SCREEN DIABETES SCREEN [facility] Start: 06-24-2025 Diabetes Screening Diabetes Screenin g [facility] Start: 01-21-2024 ANNUAL PCP TEAM INJECTION MOLD TOOLING TECHNICIAN GARCIA DISEASE VISIT ANNUAL PCP TEAM CHRONIC DISEASE VISIT [facility] Start: 01-21-2024 BP CONTROLLED (<130/80) BP CONTROLLE D (<130/80) [facility] Start: 11-11-2023 Lipid 1996 panel - Serum or Plasma Lipid Screening [facility] Start: 11-11-2023 LIPID SCREEN LIPID SCREEN [facility] Start: 06-24-2023 ANNUAL PCP TEAM INJECTION MOLD TOOLING TECHNICIAN GARCIA DISEASE VISIT ANNUAL PCP TEAM CHRONIC DISEASE VISIT [facility] Start: 06-22-2023 End: 08-22-2023 25-hydroxyvitamin D3 [Mass/volume] in Serum or Plasma VITAMIN D 25 HYDROXY Lab Routine Encounter for therapeutic drug monitoring Vitamin D deficiency Expected: 06/22/2023, Expires: 08/22/2023 [facility] Work Phone: Immunizations Immunization Date Immunization Notes Care Provider Gene martin 06-24-2022 influenza (HD-IIV4) vaccine, age 65+ yr, high dose, quadrivalent, PF (FLUZONE HIGH-DOSE) Indy Lara BIOMEDICAL SPECIALIST.CONFERENCE SERVICES MANAGER Work Phone: [facility] Work Phone: 06-24-2022 influenza virus vacc ine, unspecified formulation Bone Wstr Work Phone: [facility] 10-04-2020 COVID-19 vaccine, fu ll dose (MODERNA) Indy Lara BIOMEDICAL SPECIALIST.CONFERENCE SERVICES MANAGER Work Phone: [facility] Work Phone: 09-06-2020 COVID-19 vaccine, fu ll dose (MODERNA) Indy Lara BIOMEDICAL SPECIALIST.CONFERENCE SERVICES MANAGER Work Phone: [facility] Work Phone: 05-10-2020 influenza (aIIV4) vaccine, age 65+ yr, quadrivalent, PF (FLUAD QUAD) Jemima Stuartr BIOMEDICAL SPECIALIST.TRESTLE MECHANIC Work Phone: [facility] Work Phone: 05-10-2020 influenza, high dose seasonal, preservative-free Indy Lara BIOMEDICAL SPECIALIST.CONFERENCE SERVICES MANAGER Work Phone: [facility] Work Phone: 05-10-2020 zoster vaccine recombinant Indy Lara BIOMEDICAL SPECIALIST.CONFERENCE SERVICES MANAGER Work Phone: [facility] Work Phone: 05-25-2019 influenza, high dose seasonal, preservative-free Indy Lara BIOMEDICAL SPECIALIST.CONFERENCE SERVICES MANAGER Work Phone: [facility] 05-06-2018 influenza, high dose seasonal, preservative-free Indy Lara BIOMEDICAL SPECIALIST.CONFERENCE SERVICES MANAGER Work Phone: [facility] 05-06-2018 pneumococcal polysaccharide vaccine, 23 valent Indy Lara BIOMEDICAL SPECIALIST.CONFERENCE SERVICES MANAGER Work Phone: [facility] 04-06-2018 influenza, seasonal, injectable Jemima Shelley BIOMEDICAL SPECIALIST.TRESTLE MECHANIC Work Phone: [facility] Work Phone: 04-06-2018 influenza, seasonal, injectable, preservative free Indy Lara BIOMEDICAL SPECIALIST.CONFERENCE SERVICES MANAGER Work Phone: [facility] Work Phone: 04-22-2017 influenza, high dose seasonal, preservative-free Indy Lara BIOMEDICAL SPECIALIST.CONFERENCE SERVICES MANAGER Work Phone: [facility] 10-15-2016 pneumococcal conjuga te vaccine, 13 valent Indy Lara BIOMEDICAL SPECIALIST.CONFERENCE SERVICES MANAGER Work Phone: [facility] 06-18-2016 influenza, high dose seasonal, preservative-free Indy Lara BIOMEDICAL SPECIALIST.CONFERENCE SERVICES MANAGER Work Phone: [facility] Work Phone: 05-26-2015 influenza, injectabl e, quadrivalent, contains preservative Indy Lara BIOMEDICAL SPECIALIST.CONFERENCE SERVICES MANAGER Work Phone: [facility] 05-03-2014 influenza, seasonal, injectable Indy Lara BIOMEDICAL SPECIALIST.CONFERENCE SERVICES MANAGER Work Phone: [facility] 07-28-2013 zoster vaccine, live Indy B cheyenne BIOMEDICAL SPECIALIST.CONFERENCE SERVICES MANAGER Work Phone: [facility] 06-17-2013 influenza, seasonal, injectable Jemima Shelley BIOMEDICAL SPECIALIST.TRESTLE MECHANIC Work Phone: [facility] Work Phone: 06-17-2013 influenza, seasonal, injectable, preservative free Indy Lara BIOMEDICAL SPECIALIST.CONFERENCE SERVICES MANAGER Work Phone: [facility] Work Phone: 06-14-2013 influenza virus vacc ine, unspecified formulation Indy Lara BIOMEDICAL SPECIALIST.CONFERENCE SERVICES MANAGER Work Phone: [facility] 04-25-2012 influenza virus vacc ine, unspecified formulation Indy Lara BIOMEDICAL SPECIALIST.CONFERENCE SERVICES MANAGER Work Phone: [facility] Work Phone: 06-30-2011 pneumococcal Conjuga te, unspecified formulation Jemima Shelley BIOMEDICAL SPECIALIST.TRESTLE MECHANIC Work Phone: [facility] Work Phone: 06-30-2011 pneumococcal polysaccharide vaccine, 23 valent Indy Lara BIOMEDICAL SPECIALIST.CONFERENCE SERVICES MANAGER Work Phone: [facility] Work Phone: 06-30-2011 pneumococcal vaccine , unspecified formulation Jemima Shelley BIOMEDICAL SPECIALIST.TRESTLE MECHANIC Work Phone: [facility] Work Phone: 07-26-2010 pneumococcal polysaccharide vaccine, 23 valent Indy Lara BIOMEDICAL SPECIALIST.CONFERENCE SERVICES MANAGER Work Phone: [facility] Work Phone: 07-26-2010 tetanus toxoid, redu andrea diphtheria toxoid, and acellular pertussis vaccine, adsorbed Indy Lara BIOMEDICAL SPECIALIST.CONFERENCE SERVICES MANAGER Work Phone: [facility] Work Phone: 07-13-2010 influenza virus vacc ine, unspecified formulation Indy Lara BIOMEDICAL SPECIALIST.CONFERENCE SERVICES MANAGER Work Phone: [facility] Work Phone: 04-10-2009 influenza virus vacc ine, unspecified formulation Indy Lara BIOMEDICAL SPECIALIST.CONFERENCE SERVICES MANAGER Work Phone: [facility] 06-15-2008 influenza virus vacc ine, unspecified formulation Indy Lara BIOMEDICAL SPECIALIST.CONFERENCE SERVICES MANAGER Work Phone: [facility] 06-16-2006 influenza virus vacc ine, unspecified formulation Indy Lara BIOMEDICAL SPECIALIST.CONFERENCE SERVICES MANAGER Work Phone: [facility] Work Phone: Payers Date Payer Category Payer Medicare [place] MEDICARE [place] [facility] [place] [id number] 2022-Present [phone] [address] [place] [address] [facility] [place] [id number] 2022 Medicare AET MEDICARE A ETNA MEDICARE HMO [id number] 2022-Present [phone] [address] [place] [address] [facility] [place] [id number] 2022 Medicare [id number] 2021 Unknown OLIVIER AGUAYO BS FEP PPO [id number] 2021-Present [phone] [address] [place] [address] PPO [id number] Social History Date Type Detail Facility Start: 11-06-2011 End: 01-20-2023 Tobacco smoking status NHIS Ex-smoker [facility] End: 07-07-1979 History of tobacco use Current smoker [facility] End: 07-07-1979 History of tobacco use Cigarette Smoker [facility] Start: 10-09-2020 End: 01-15-2022 Alcohol intake Current drinker of alcohol (finding) [facility] Start: 10-09-2020 End: 06-24-2022 History SDOH Alcohol Frequency 1 [facility] Start: 06-06-2010 History SDOH Alcohol Comment occas once yearly [facility] Start: 10-09-2020 End: 06-24-2022 History SDOH Social Connections Phone 5 [facility] Start: 10-09-2020 End: 06-24-2022 History SDOH Social Connections Get Together 3 [facility] Start: 10-09-2020 End: 06-24-2022 History SDOH Social Connections Membership 2 [facility] Start: 10-09-2020 History SDOH Physica l Activity DPW 4 [facility] Start: 10-08-2020 Education 12 [facility] Start: 11-06-2011 End: 01-20-2023 Tobacco Comment Pt smoked 1/2 to 1 pack daily for 8 years. [facility] Start: 1950 Sex Assigned At Not on file C [facility] Start: 01-05-2022 End: 01-15-2022 Exposure to SARS-CoV-2 (event) Not sure [facility] Work Phone: Start: 11-06-2011 End: 01-20-2023 Tobacco use and exposure Smokeless tobacco non-user [facility] Start: 06-24-2022 History SDOH Alcohol Std Drinks 0 [facility] Start: 01-15-2022 End: 06-23-2022 History of Social function [facility] Start: 01-15-2022 End: 06-23-2022 Social connection and isolation panel [facility] Do you belong to any clubs or organizations such as taoist groups, unions, fraternal or athletic groups, or school groups? No [facility] Are you now , , , , never or living with a partner? [facility] How often to you hav e a drink containing alcohol? Never [facility] How many standard dr inks containing alcohol do you have on a typical day? Patient does not drink [facility] Do you feel stress - tense, restless, nervous, or anxious, or unable to sleep at night because your mind is troubled all the time - these days [OSQ] Only a little [facility] (I/We) worried wheth er (my/our) food would run out before (I/we) got money to buy more. Never true [facility] Clinical Notes 07-08-2013 to 06-25-2023 Telephone Encounter - Sarai Dow ROSE - 02/18/2023 12:48 PM EDTTelephone Encounter - StewDorene LPN - 02/17/2023 4:41 PM EDTTelephone Encounter - Dorene Mathias LPN - 02/17/2023 3:40 PM EDT Note Date & Type Note Facility 06-25-2023 Note HNO ID: [id number] Author: ANNA CHAPMAN MD Service: ? Author Type: Physician Type: Progress Notes Filed: 07/26/2023 21:53 Note Text: This note was created using Zinc softwareriter. Subjective Deborah Seo is a 73 year old female. Patient presents with: F/U 6 months SUBJECTIVE: Deborah Seo is a 73 year old year old lady here today for 6 month follow up appointment for review of medical conditions. Reviewed had MRI breast was fine. Noted tech was trying to convince her not to do test. Plans to get colonoscopy by Dr. Molina. PAST MEDICAL HISTORY Diagnosis Date Breast cancer (HCC) 05/09/2010 Left 2010. Rt mastectomy 2012 for preventative. Cataracts, bilateral Dr. Mendoza Essential hypertension 05/06/2018 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 (HCC) 05/16/2018 Malignant neoplasm of breast (female), unspecified site Postmenopausal bleeding 07/08/2013 S/P mastectomy, bilateral 07/02/2013 Solitary cyst of breast 1979 left Vitamin D deficiency Current Outpatient Medications Medication Sig metoprolol tartrate, short acting, (LOPRESSOR) 50 mg tablet Take 0.5-1 tablets by mouth twice daily. citalopram hydrobromide (CELEXA) 10 mg tablet Take 1 tablet by mouth once daily. Take with Cymbalta lisinopril (ZESTRIL) 10 mg tablet Take 1 tablet by mouth once daily. DULoxetine (CYMBALTA) 20 mg capsule Take 1 capsule by mouth once daily. tolterodine ER (DETROL LA) 4 mg 24 hr capsule Take 1 capsule by mouth once daily. oxyCODONE IR (ROXICODONE) 10 mg tab Take 1 tablet by mouth three times daily. fluticasone (FLONASE) 50 mcg/actuation nasal spray Use 2 Sprays in each nostril once daily. ondansetron orally disintegrating (ZOFRAN ODT) 4 mg disintegrating tablet Take 1 tablet by mouth every 6 hours as needed for Nausea/Vomiting. docusate sodium (COLACE) 100 mg capsule Take 1 capsule by mouth twice daily as needed for Constipation. calcium carbonate-Vit D3-minerals 600 mg calcium- 400 unit Tab Take 1 tablet by mouth twice daily. LACTOBACILLUS ACIDOPHILUS (PROBIOTIC ORAL) Take 1 capsule by mouth twice daily. No current facility-administered medications for this visit. Review of Systems Objective BP 136/88 Pulse 68 Temp 37.2 ?C (99 ?F) Resp 18 Wt 56.2 kg (124 lb) SpO2 99% BMI 21.28 kg/m? Last 5 Encounter Wt Readings: Date: Wt: 06/25/2023 56.2 kg (124 lb) 01/20/2023 58.1 kg (128 lb) 06/24/2022 62.6 kg (138 lb) 01/15/2022 61.2 kg (135 lb) 10/09/2020 63 kg (139 lb) No waist measurement recorded Estimated body mass index is 21.28 kg/m? as calculated from the following: Height as of 06/24/22: 162.6 cm (5' 4 ). Weight as of this encounter: 56.2 kg (124 lb). Last 5 Encounter BP Readings: Date: BP: 06/25/2023 136/88 01/20/2023 94/60 06/24/2022 136/82 01/15/2022 116/70 10/09/2020 102/60 Physical Exam Constitutional: Appearance: Normal appearance. HENT: Head: Normocephalic. Eyes: Conjunctiva/sclera: Conjunctivae normal. Cardiovascular: Rate and Rhythm: Normal rate and regular rhythm. Heart sounds: Normal heart sounds. Pulmonary: Effort: Pulmonary effort is normal. Breath sounds: Normal breath sounds. Musculoskeletal: Right lower leg: No edema. Left lower leg: No edema. Skin: General: Skin is warm and dry. Neurological: General: No focal deficit present. Mental Status: She is alert and oriented to person, place, and time. Psychiatric: Mood and Affect: Mood normal. Behavior: Behavior normal. Thought Content: Thought content normal. Judgment: Judgment normal. Assessment and Plan Encounter Diagnosis ICD-10-CM 1. Hypertension, unspecified type I10 metoprolol tartrate, short acting, (LOPRESSOR) 50 mg tablet LIPID PANEL, NONFASTING Good control; stay on same meds 2. 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, unspecified whether recurrent (HCC) F32.5 DULoxetine (CYMBALTA) 20 mg capsule Stay on same meds 3. Bladder irritability N32.89 Try Vesicare. 4. Anxiety and depression F41.9 citalopram hydrobromide (CELEXA) 10 mg tablet F32.A taking Celexa with Cymbalta and that works better 5. Sinus headache R51.9 fluticasone (FLONASE) 50 mcg/actuation nasal spray Just needs Flonase as needed 6. Encounter for immunization Z23 INFLUENZA VACCINE, PRSV FREE, AGE 65+ YR, HIGH DOSE, QUADRIVALENT (FLUZONE HIGH-DOSE) Facebook COVID-19 VACCINE ( SEASON) AGE 12+ YR Above issues addressed with patient. Patient involved in shared decision making for management of medical issues. History and medications reviewed. Epic updated as needed Refills and/or prescriptions taken care of and meds adjusted as indicated after reviewed history, exam and labs. Health Maintenance reviewed. Updated record and/or ordered tests as recorded. Encouraged on efforts at healthy diet and regular exercise and adequate sleep. Anna Chapman MD Appointment changed to Distance Health visit (Virtual Visit or Telephone v (more content not included)... [facility] 02-18-2023 Miscellaneous Notes Formattin g of this note might be different from the original. Patient returned call and went over results, notes from Jemima Rosa OPTOMETRIST PRESIDENT/PRACTICE OWNER with understanding. LEFT MESSAGE FOR PATIENT TO CALL OFFICE. Please let patient know that breast MRI is without any concerns. Jemima Rosa APRN.STEPHANIE Bilateral breast MRI has been results and on Jemima Rosa's desk for review. documented in this encounter [facility] 01-20-2023 Note HNO ID: [id number] Author: Jemima Rosa APRN.CNP Service: ? Author Type: Nurse Practitioner Type: Progress Notes Filed: 01/20/2023 3:31 PM Note Text: SUBJECTIVE Deborah Seo is a 72 year old female here today for a check up on her medical problems. Chief Complaint Patient presents with: F/U 6 months HPI Deborah Seo is a 72 year old female established patient of Anna Chapman MD. She is here today for a 6 month follow up. Last seen 06/24/[address] Chapman for a medicare wellness visit. History of HTN, depression, vitamin d def. Sees pain management. Saw Dr. Dunn to discuss further reconstruction from prior breast radiation for breast cancer treatment. May have surgery in April. Doing okay mood hughes. They are here today for a recheck of blood pressure. Blood pressure appears to be well controlled. Denies any symptoms referable to elevated blood pressure. Specifically denies headache, chest pain, palpitations, dyspnea and peripheral edema. Tolerating medications well. Her medications were reviewed today and her list is now up to date. Medications Current Outpatient Medications Medication Sig metoprolol tartrate, short acting, (LOPRESSOR) 50 mg tablet Take 0.5-1 tablets by mouth twice daily. citalopram hydrobromide (CELEXA) 10 mg tablet Take 1 tablet by mouth once daily. Take with Cymbalta lisinopril (ZESTRIL) 10 mg tablet Take 1 tablet by mouth once daily. DULoxetine (CYMBALTA) 20 mg capsule Take 1 capsule by mouth once daily. tolterodine ER (DETROL LA) 4 mg 24 hr capsule Take 1 capsule by mouth once daily. oxyCODONE IR (ROXICODONE) 10 mg tab Take 1 tablet by mouth three times daily. fluticasone (FLONASE) 50 mcg/actuation nasal spray Use 2 Sprays in each nostril once daily. ondansetron orally disintegrating (ZOFRAN ODT) 4 mg disintegrating tablet Take 1 tablet by mouth every 6 hours as needed for Nausea/Vomiting. docusate sodium (COLACE) 100 mg capsule Take 1 capsule by mouth twice daily as needed for Constipation. calcium carbonate-Vit D3-minerals 600 mg calcium- 400 unit Tab Take 1 tablet by mouth twice daily. LACTOBACILLUS ACIDOPHILUS (PROBIOTIC ORAL) Take 1 capsule by mouth twice daily. iv contrast (will be provided with radiology test) MRI Breast BRYAN Inject, intravenously, once for 1 dose. No IV access, insert saline lock prior to the beginning of sedation, infusion, injection of imaging exam. Discontinue saline lock post exam. If Pt has a central line or IVAD, may access for administration according to line specific nursing protocol. Once exam is complete flush line and de-access according to line specific nursing protocol in the MR contrast administration guidelines link No current facility-administered medications for this visit. ALLERGIES Allergen Reactions Hydrocodone-Acetami* GI Upset Other reaction(s): makes very ill Hylan G-F 20 Swelling knee swelling when had in right knee (did okay when had in left knee prior) Other reaction(s): severe swelling Demerol [Meperidine* Hives Hydrocodone Bitartr* Vomiting Tamoxifen Rash, Hives ACTIVE PROBLEM LIST Major Depressive Disorder in Full Remission (Hcc) - 05/16/2018 Essential Hypertension - 05/06/2018 S/P Bilateral Breast Implants - 07/02/2013 Family History of Colon Cancer - 03/11/2013 History of Breast Cancer - 02/17/2012 Comment: See Survivorship Care Plan dated 10/17/14 in abstract. Vitamin D Deficiency Er+ (Estrogen Receptor Positive Status) - 08/02/2010 Special Screening for Malignant Neoplasms, Colon - 12/25/2006 Solitary Cyst of Breast - 07/10/2006 Social History Tobacco Use Smoking status: Former Years: 8.00 Types: Cigarettes Quit date: 07/07/1979 Years since quittin.5 Smokeless tobacco: Never Tobacco comments: Pt smoked 1/2 to 1 pack daily for 8 years. Substance Use Topics Alcohol use: Yes Comment: occas once yearly Drug use: No Review of Systems Respiratory: Negative. Cardiovascular: Negative. OBJECTIVE BP 94/60 Pulse 80 Resp 16 Wt 128 lb (58.1kg) SpO2 95% Physical Exam Vitals and nursing note reviewed. Constitutional: General: She is awake. She is not in acute distress. Appearance: Normal appearance. She is well-developed and well-groomed. She is not ill-appearing, toxic-appearing or diaphoretic. HENT: Head: Normocephalic. Right Ear: External ear normal. Left Ear: External ear normal. Nose: Nose normal. Eyes: General: Vision grossly intact. Conjunctiva/sclera: Conjunctivae normal. Pupils: Pupils are equal, round, and reactive to light. Neck: Vascular: No JVD. Trachea: Trachea normal. Cardiovascular: Rate and Rhythm: Normal rate and regular rhythm. Pulses: Normal pulses. Heart sounds: Normal heart sounds. No murmur heard. Pulmonary: Effort: Pulmonary effort is normal. No accessory muscle usage, prolonged expiration or respiratory distress. Breath sounds: Normal breath soun (more content not included)... [facility] 01-20-2023 History of Presen t illness Narrative SUBJECTIVE Deborah Seo is a 72 year old female here today for a check up on her medical problems. Chief Complaint Patient presents with: F/U 6 months HPI Deborah Seo is a 72 year old female established patient of Anna Chapman MD. She is here today for a 6 month follow up. Last seen 06/24/[address] Chapman for a medicare wellness visit. History of HTN, depression, vitamin d def. Sees pain management. Saw Dr. Dunn to discuss further reconstruction from prior breast radiation for breast cancer treatment. May have surgery in April. Doing okay mood hughes. They are here today for a recheck of blood pressure. Blood pressure appears to be well controlled. Denies any symptoms referable to elevated blood pressure. Specifically denies headache, chest pain, palpitations, dyspnea and peripheral edema. Tolerating medications well. Her medications were reviewed today and her list is now up to date. Medications Current Outpatient Medications Medication Sig metoprolol tartrate, short acting, (LOPRESSOR) 50 mg tablet Take 0.5-1 tablets by mouth twice daily. citalopram hydrobromide (CELEXA) 10 mg tablet Take 1 tablet by mouth once daily. Take with Cymbalta lisinopril (ZESTRIL) 10 mg tablet Take 1 tablet by mouth once daily. DULoxetine (CYMBALTA) 20 mg capsule Take 1 capsule by mouth once daily. tolterodine ER (DETROL LA) 4 mg 24 hr capsule Take 1 capsule by mouth once daily. oxyCODONE IR (ROXICODONE) 10 mg tab Take 1 tablet by mouth three times daily. fluticasone (FLONASE) 50 mcg/actuation nasal spray Use 2 Sprays in each nostril once daily. ondansetron orally disintegrating (ZOFRAN ODT) 4 mg disintegrating tablet Take 1 tablet by mouth every 6 hours as needed for Nausea/Vomiting. docusate sodium (COLACE) 100 mg capsule Take 1 capsule by mouth twice daily as needed for Constipation. calcium carbonate-Vit D3-minerals 600 mg calcium- 400 unit Tab Take 1 tablet by mouth twice daily. LACTOBACILLUS ACIDOPHILUS (PROBIOTIC ORAL) Take 1 capsule by mouth twice daily. iv contrast (will be provided with radiology test) MRI Breast BRYAN Inject, intravenously, once for 1 dose. No IV access, insert saline lock prior to the beginning of sedation, infusion, injection of imaging exam. Discontinue saline lock post exam. If Pt has a central line or IVAD, may access for administration according to line specific nursing protocol. Once exam is complete flush line and de-access according to line specific nursing protocol in the MR contrast administration guidelines link No current facility-administered medications for this visit. ALLERGIES Allergen Reactions Hydrocodone-Acetami* GI Upset Other reaction(s): makes very ill Hylan G-F 20 Swelling knee swelling when had in right knee (did okay when had in left knee prior) Other reaction(s): severe swelling Demerol [Meperidine* Hives Hydrocodone Bitartr* Vomiting Tamoxifen Rash, Hives ACTIVE PROBLEM LIST Major Depressive Disorder in Full Remission (Hcc) - 05/16/2018 Essential Hypertension - 05/06/2018 S/P Bilateral Breast Implants - 07/02/2013 Family History of Colon Cancer - 03/11/2013 History of Breast Cancer - 02/17/2012 Comment: See Survivorship Care Plan dated 10/17/14 in abstract. Vitamin D Deficiency Er+ (Estrogen Receptor Positive Status) - 08/02/2010 Special Screening for Malignant Neoplasms, Colon - 12/25/2006 Solitary Cyst of Breast - 07/10/2006 Social History Tobacco Use Smoking status: Former Years: 8.00 Types: Cigarettes Quit date: 07/07/1979 Years since quittin.5 Smokeless tobacco: Never Tobacco comments: Pt smoked 1/2 to 1 pack daily for 8 years. Substance Use Topics Alcohol use: Yes Comment: occas once yearly Drug use: No Review of Systems Respiratory: Negative. Cardiovascular: Negative. OBJECTIVE BP 94/60 Pulse 80 Resp 16 Wt 128 lb (58.1kg) SpO2 95% Physical Exam Vitals and nursing note reviewed. Constitutional: General: She is awake. She is not in acute distress. Appearance: Normal appearance. She is well-developed and well-groomed. She is not ill-appearing, toxic-appearing or diaphoretic. HENT: Head: Normocephalic. Right Ear: External ear normal. Left Ear: External ear normal. Nose: Nose normal. Eyes: General: Vision grossly intact. Conjunctiva/sclera: Conjunctivae normal. Pupils: Pupils are equal, round, and reactive to light. Neck: Vascular: No JVD. Trachea: Trachea normal. Cardiovascular: Rate and Rhythm: Normal rate and regular rhythm. Pulses: Normal pulses. Heart sounds: Normal heart sounds. No murmur heard. Pulmonary: Effort: Pulmonary effort is normal. No accessory muscle usage, prolonged expiration or respiratory distress. Breath sounds: Normal breath sounds. Musculoskeletal: Cervical back: Neck supple. Skin: General: Skin is warm and dry. Capillary Refill: Capillary refill takes less than 2 seconds. Neurological: General: No focal deficit present. Mental Status: She is alert and oriented to person, place, and time. Mental status is at baseline. Psychiatric: Attention and Perception: Attention and perception normal. Mood and Affect: Mood and affect normal. Speech: Speech normal. Behavior: Behavior normal. Behavior is cooperative. Thought Content: Thought content normal. Cognition and Memory: Cognition and memory normal. Judgment: Judgment normal. ASSESSMENT/PLAN: 1. Essential hypertension - ICD9: 401.9, ICD10: I10 (primary diagnosis) - Controlled, stable. - Continue current medications - Recommend home blood pressure monitoring, to bring results to next visit - Encouraged sodium restriction, DASH or Mediterranean diet - Recommend regular aerobic exercise 2. 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, unspecified whether recurrent (HCC) - ICD9: 296.26, ICD10: F32.5 Stable. 3. Vitamin D deficiency - ICD9: 268.9, ICD10: E55.9 - VITAMIN D 25 HYDROXY 4. History of breast cancer - ICD9: V10.3, ICD10: Z85.3 - MRI BREAST WO/W IVCON BILATERAL - IV CONTRAST (RADIOLOGY PROCEDURE) 5. ER+ (estrogen receptor positive status) - ICD9: V86.0, ICD10: Z17.0 - MRI BREAST WO/W IVCON BILATERAL - IV CONTRAST (RADIOLOGY PROCEDURE) 6. Encounter for therapeutic drug monitoring - ICD9: V58.83, ICD10: Z51.81 - CBC + DIFF - COMP METABOLIC PANEL - LIPID PANEL BASIC - VITAMIN D 25 HYDROXY 7. Screening for lipid disorders - ICD9: V77.91, ICD10: Z13.220 - LIPID PANEL BASIC Medical Decision Making: Problems: Moderate: 2+ stable chronic illnesses Data: Unique test(s) ordered: 3+ Medical Decision Making Level: 4 - Moderate Portions of this note have been entered by ancillary staff. I have reviewed and when necessary edited, so that they are an adequate record of my encounter with this patient Please note that parts of this document were created using voice recognition software and therefore may contain grammatical errors. Patient verbalizes understanding of instructions from today's visit and in agreement with treatment plan. Questions answered. Agrees to call the office if questions, concerns of issues with acute symptoms not improving or if they worsen. See diagnoses and orders for additional plan(s). Allergies and medications were reviewed, list was updated, and refills given if needed. Past medical, surgical, social, and family history reviewed and updated as appropriate. Encouraged proper diet & exercise as well as compliance with taking medications. Age-appropriate health preventative measures were discussed. Return in about 6 months (around 07/23/2023) for Follow up on chronic conditions and medications.. Jemima Rosa APRN-STEPHANIE documented in this encounter [facility] 01-09-2023 Miscellaneous Notes Formattin g of this note is different from the original. Pharmacy verified in [facility] Patient has been identified by name and date of : Yes Patient aware RX will be sent to pharmacy. No need to notify patient. Patient phones for refill(s): Requested Prescriptions Pending Prescriptions Disp Refills metoprolol tartrate, short acting, (LOPRESSOR) 50 mg tablet 60 tablet 11 Sig: Take 0.5-1 tablets by mouth twice daily. Date of last office visit : 06/24/2022 Date of next office visit : 01/20/2023 Last 2 Encounter Wt Readings: Date: Wt: 06/24/2022 62.6 kg (138 lb) 01/15/2022 61.2 kg (135 lb) Not applicable Please advise. Nelda Serrano Pss documented in this encounter [facility] 11-13-2022 Miscellaneous Notes Formattin g of this note is different from the original. Last office visit: 06/24/22 Next appointment scheduled: 12/24/22 Patient phones requesting refills as follows: Requested Prescriptions Pending Prescriptions Disp Refills citalopram hydrobromide (CELEXA) 10 mg tablet 30 tablet 11 Sig: Take 1 tablet by mouth once daily. Take with Cymbalta Please review and advise. Dorene Mathias LPN documented in this encounter [facility] 11-13-2022 Miscellaneous Notes Formattin g of this note might be different from the original. BRE 06/24/22 NOV 12/24/22 Val Richardson MA Patient has been identified by name and date of : Yes Last office visit in this department: 06/24/2022 RX INSTRUCTIONS: Pharmacy initiated this request. No need to notify patient. Patient phones requesting refills as follows: Requested Prescriptions Pending Prescriptions Disp Refills citalopram hydrobromide (CELEXA) 10 mg tablet 30 tablet 11 Sig: Take 1 tablet by mouth once daily. Take with Cymbalta Please review and advise. Lauren Casanova Pss documented in this encounter [facility] 10-23-2022 Miscellaneous Notes Formattin g of this note might be different from the original. Okayed BRE: 06/24/2022 lisinopril Last refill: 10/09/2021 QTY: 30 Refills: 11 duloxetine Last refill: 10/09/2021 QTY: 30 Refills: 11 documented in this encounter [facility] 07-09-2022 History of Presen t illness Narrative Radiology Service Progress Note PATIENT NAME: Deborah Seo DATE OF SERVICE: July 09, 2022 TIME: 3:37 PM PATIENT IDENTITY VERIFICATION COMPLETED USING TWO (2) IDENTIFIERS: Name and Date of confirmed by patient verbally. FALL SCREENING: Has the patient had 2 falls in the last year or 1 fall with injury or currently using an Ambulatory Assistive Device (Walker, Cane, Wheelchair, Crutches, etc.)? No PATIENT GENDER DATA: Female. status: : No status: NO. PATIENT RELEVANT IMPLANT DATA REVIEWED: Not Applicable RADIOLOGY DEPARTMENT: Bone Density PERIPHERAL IV DATA: Not applicable SIGNED BY: RT Nilton(R) July 09, 2022 3:37 PM documented in this encounter [facility] 01-15-2022 Instructions Indy Lara APRN.CONFERENCE SERVICES MANAGER - 01/15/2022 11:30 AM EDT Check to see if your insurance covers shingles vaccine and Tdap and what location to get the vaccine -usually best covered at your local pharmacy where you get prescriptions filled Check labwork at your earliest convenience at BONE MINERAL DENSITY PATIENT INSTRUCTIONS Bone mineral density testing measures the amount of calcium in certain parts of your bones. This information determines how strong your bones are. The test is used to detect osteoporosis, a disease in which the bone's mineral content and density are low, increasing a person's risk of fractures. The lumbar spine (lower back) and the hip are the skeletal sites usually examined. For the test, remember that: 1. You cannot take this test if you are . 2. Eat a normal diet on the day of the test. 3. Take your medications as you normally would. 4. DO NOT take calcium supplements (such as Tums) for 24 hours before the test. 5. On the day of the test, leave valuables (jewelry or credit cards) at home. 6. The test should be performed prior to oral, rectal or IV contrast studies, or at least 7 days after any of these studies. For the test, you may be asked to wear a hospital gown. You will lie on your back, on a padded table, in a comfortable position. Generally, you can resume your usual activities immediately. documented in this encounter [facility] 01-15-2022 History of Presen t illness Narrative SUBJECTIVE: DIABETES SCREEN due on 10/09/2019 COVID-19 VACCINE(4 - Booster for Moderna series) due on 09/23/2021 SARIKA Seo is a 71 year old female. PMH significant for ACTIVE PROBLEM LIST Solitary Cyst of Breast Special Screening for Malignant Neoplasms, Colon Er+ (Estrogen Receptor Positive Status) Vitamin D Deficiency History of Breast Cancer Family History of Colon Cancer S/P Bilateral Breast Implants Essential Hypertension Major Depressive Disorder in Full Remission (Hcc) Recent labwork: no She notes slight decrease in memory, some fogginess since she was treated for breast cancer. Not interfering with daily activities. Dr Alvarez pain management, taking oxycodone for chronic pain. BMD 2016 [facility] osteopenia. Taking supplemental vitamin D and calcium She has been in her usual state of health. She notes her brother in January. Her older sister is sick with lymphoma. Has been a stressful year but managing so far. Depression: Notes she feels her mood is stable. Doing well with current medications. Not going to counseling, feels she is doing well without it for now. HTN: Ms. Seo indicates that she is without report of headache, chest pain, palpitations, dyspnea, peripheral edema, orthopnea, fatigue and PND. Last 14 Encounter BP Readings: Date: BP: 01/15/2022 116/70 10/09/2020 102/60 05/25/2019 112/64 11/13/2018 84/50 05/06/2018 116/78 12/04/2017 137/83 12/02/2017 138/90 10/30/2017 138/80 04/22/2017 118/70 10/15/2016 152/82 08/28/2016 138/85 11/27/2015 130/80 08/28/2015 128/82 06/02/2015 132/78 She notes Ditropan seems to not be doing well for her. Advance directives: Notes she has these at home. Review of Systems Constitutional: Negative. Respiratory: Negative. Cardiovascular: Negative. Endocrine: Negative. Objective BP 116/70 Pulse 60 Resp 16 Ht 172.7 cm (5' 8 ) Wt 61.2 kg (135 lb) BMI 20.53 kg/m Physical Exam Vitals and nursing note reviewed. Constitutional: General: She is not in acute distress. Appearance: Normal appearance. She is normal weight. She is not ill-appearing, toxic-appearing or diaphoretic. HENT: Head: Normocephalic and atraumatic. Eyes: Conjunctiva/sclera: Conjunctivae normal. Neck: Thyroid: No thyromegaly or thyroid tenderness. Cardiovascular: Rate and Rhythm: Normal rate and regular rhythm. Pulses: Carotid pulses are 2+ on the right side. Radial pulses are 2+ on the right side and 2+ on the left side. Heart sounds: Normal heart sounds. Pulmonary: Effort: Pulmonary effort is normal. Breath sounds: Normal breath sounds. Abdominal: General: Bowel sounds are normal. Musculoskeletal: Right lower leg: No edema. Left lower leg: No edema. Skin: General: Skin is warm and dry. Neurological: General: No focal deficit present. Mental Status: She is alert and oriented to person, place, and time. Psychiatric: Mood and Affect: Mood normal. Behavior: Behavior normal. Thought Content: Thought content normal. ALLERGIES Allergen Reactions Hydrocodone-Acetami* GI Upset Other reaction(s): makes very ill Hylan G-F 20 Swelling knee swelling when had in right knee (did okay when had in left knee prior) Other reaction(s): severe swelling Demerol [Meperidine* Hives Hydrocodone Bitartr* Vomiting Tamoxifen Rash, Hives MEDICATIONS oxyCODONE IR (ROXICODONE) 10 mg tab, Take 1 tablet by mouth three times daily. citalopram hydrobromide (CELEXA) 10 mg tablet, Take 1 tablet by mouth once daily. Take with Cymbalta metoprolol tartrate, short acting, (LOPRESSOR) 50 mg tablet, Take 0.5-1 tablets by mouth twice daily. lisinopril (ZESTRIL) 10 mg tablet, Take 1 tablet by mouth once daily. DULoxetine (CYMBALTA) 20 mg capsule, Take 1 capsule by mouth once daily. fluticasone (FLONASE) 50 mcg/actuation nasal spray, Use 2 Sprays in each nostril once daily. ondansetron orally disintegrating (ZOFRAN ODT) 4 mg disintegrating tablet, Take 1 tablet by mouth every 6 hours as needed for Nausea/Vomiting. docusate sodium (COLACE) 100 mg capsule, Take 1 capsule by mouth twice daily as needed for Constipation. calcium carbonate-Vit D3-minerals 600 mg calcium- 400 unit Tab, Take 1 tablet by mouth twice daily. LACTOBACILLUS ACIDOPHILUS (PROBIOTIC ORAL), Take 1 capsule by mouth twice daily. trospium (SANCTURA) 20 mg tablet, Take 1 tablet by mouth twice daily. diazePAM (VALIUM) 5 mg tablet, Take 5 mg by mouth three times daily as needed. PAST MEDICAL HISTORY Diagnosis Date Breast cancer (HCC) 05/09/2010 Left 2010. Rt mastectomy 2012 for preventative. Cataracts, bilateral Dr. Mendoza Essential hypertension 05/06/2018 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 (HCC) 05/16/2018 Malignant neoplasm of breast (female), unspecified site Postmenopausal bleeding 07/08/2013 S/P mastectomy, bilateral 07/02/2013 Solitary cyst of breast 1979 left Vitamin D deficiency Social History Tobacco Use Smoking status: Former Smoker Years: 8.00 Types: Cigarettes Quit date: 07/07/1979 Years since quittin.5 Smokeless tobacco: Never Used Tobacco comment: Pt smoked 1/2 to 1 pack daily for 8 years. Substance Use Topics Alcohol use: Yes Comment: occas once yearly Drug use: No Last labs: [facility] labs completed October 04, 2020 Total cholesterol 228 triglycerides 67 LDL 123 VLDL 13 (5% 10-year risk) Glucose 99 BUN 22 creatinine 0.84 estimated GFR 87 calcium 9.7 sodium 137 potassium 4.4 chloride 104 CO2 31 gap 2 ASSESSMENT/PLAN: 1. Essential hypertension - ICD9: 401.9, ICD10: I10 (primary diagnosis) - good control - Continue current medication(s) - Encouraged dietary sodium restriction/DASH diet - Recommended regular aerobic exercise. - COMP METABOLIC PANEL - CBC + DIFF 2. Screening for diabetes mellitus (DM) - ICD9: V77.1, ICD10: Z13.1 3. Encounter for immunization - ICD9: V03.89, ICD10: Z23 - PFIZER-BIONTECH COVID-19 VACCINE, AGE 12+ YR (WHITTEN TOP) 4. Vitamin D deficiency - ICD9: 268.9, ICD10: E55.9 - VITAMIN D 25 HYDROXY 5. 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, unspecified whether recurrent (HCC) - ICD9: 296.26, ICD10: F32.5 6. Bladder irritability - ICD9: 596.89, ICD10: N32.89 - TROSPIUM 20 MG TABLET 7. Urge incontinence - ICD9: 788.31, ICD10: N39.41 Would like to switchg back to [place] as dtropan does not seem to work as well last in the past Defers referral to urology - TROSPIUM 20 MG TABLET 8. Osteopenia, unspecified location - ICD9: 733.90, ICD10: M85.80 - Reviewed the need for Calcium and Vitamin D supplements and weight bearing exercise as tolerated - DXA-AXIAL SKELETON 9. Encounter for screening for osteoporosis - ICD9: V82.81, ICD10: Z13.820 - DXA-AXIAL SKELETON 10. Asymptomatic postmenopausal status - ICD9: V49.81, ICD10: Z78.0 - DXA-AXIAL SKELETON 6 mo follow up - medicare wellness with MD Indy Esparza APRN.CONFERENCE SERVICES MANAGER Medical Decision Making: Problems: Moderate: 2+ stable chronic illnesses Data: Unique test(s) ordered: 3+ Risk: Moderate: Drug management Medical Decision Making Level: 4 - Moderate documented in this encounter [facility] 11-12-2021 Miscellaneous Notes Sent a MyChart reminder there is blood work due. documented in this encounter [facility] 11-02-2021 Miscellaneous Notes Patient has been identified by name and date of : Yes Patient phones for refill(s): Pending Prescriptions Disp Refills OXYBUTYNIN CHLORIDE ER 10 MG TABLET,EXTENDED RELEASE 24 HR 30 tablet 2 Sig: Take 1 tablet by mouth once daily. SARAH: No Date of last office visit in primary care: 10/09/20 patient has appt 01/15/22 Last 2 Encounter Wt Readings: Date: Wt: 10/09/2020 63 kg (139 lb) 05/25/2019 62.6 kg (138 lb) Previous labs/tests for medication: Not applicable Please advise. Thank you. Marya Mckeon LPN documented in this encounter [facility] 10-09-2021 Miscellaneous Notes Refills addressed in another encounter documented in this encounter [facility] documented as of this encounter (statuses as of 10/09/2021) [facility] History of Past illness Narrative* Problem Noted Date Resolved Date Postmenopausal bleeding 07/08/2013 05/16/20 18 S/P mastectomy, bilateral 07/02/20132012 Pelvic pain 07/08/2012 07/02/2013 Post-menopausal bleeding 02/12/2012 018 Breast cancer 05/09/2010 07/02/2013 Overview: Left 2010. Rt mastectomy 2012 for preventative. Abnormal findings on diagnostic imaging of breas t 05/03/2010 07/26/2010 documented as of this encounter (statuses as of 11/02/2021) [facility] History of Past illness Narrative* Problem Noted Date Resolved Date Postmenopausal bleeding 07/08/2013 05/16/20 18 S/P mastectomy, bilateral 07/02/20132012 Pelvic pain 07/08/2012 07/02/2013 Post-menopausal bleeding 02/12/2012 018 Breast cancer 05/09/2010 07/02/2013 Overview: Left 2010. Rt mastectomy 2012 for preventative. Abnormal findings on diagnostic imaging of breas t 05/03/2010 07/26/2010 documented as of this encounter (statuses as of 11/12/2021) [facility]2014 History of Past illness Narrative* Problem Noted Date Resolved Date Postmenopausal bleeding 07/08/2013 05/16/20 19 S/P mastectomy, bilateral 07/02/20132012 Pelvic pain 07/08/2012 07/02/2013 Post-menopausal bleeding 02/12/2012 018 Breast cancer 05/09/2010 07/02/2013 Overview: Left 2011. Rt mastectomy 2012 for preventative. Abnormal findings on diagnostic imaging of breas t 05/03/2010 07/26/2010 documented as of this encounter (statuses as of 01/15/2022) [facility]2014 History of Past illness Narrative* Problem Noted Date Resolved Date Postmenopausal bleeding 07/08/2013 05/16/20 18 S/P mastectomy, bilateral 07/02/20132012 Pelvic pain 07/08/2012 07/02/2013 Post-menopausal bleeding 02/12/2012 018 Breast cancer 05/09/2010 07/02/2013 Overview: Left 2010. Rt mastectomy 2012 for preventative. Abnormal findings on diagnostic imaging of breas t 05/03/2010 07/26/2010 documented as of this encounter (statuses as of 10/24/2022) [facility] History of Past illness Narrative* Problem Noted Date Resolved Date Postmenopausal bleeding 07/08/2013 05/16/20 18 S/P mastectomy, bilateral 07/02/20132012 Pelvic pain 07/08/2012 07/02/2013 Post-menopausal bleeding 02/12/2012 018 Breast cancer 05/09/2010 07/02/2013 Overview: Left 2010. Rt mastectomy 2012 for preventative. Abnormal findings on diagnostic imaging of breas t 05/03/2010 07/26/2010 documented as of this encounter (statuses as of 11/13/2022) [facility] History of Past illness Narrative* Problem Noted Date Resolved Date Postmenopausal bleeding 07/08/2013 05/16/20 18 S/P mastectomy, bilateral 07/02/20132012 Pelvic pain 07/08/2012 07/02/2013 Post-menopausal bleeding 02/12/2012 018 Breast cancer 05/09/2010 07/02/2013 Overview: Left 2010. Rt mastectomy 2012 for preventative. Abnormal findings on diagnostic imaging of breas t 05/03/2010 07/26/2010 documented as of this encounter (statuses as of 11/13/2022) [facility] History of Past illness Narrative* Problem Noted Date Resolved Date Postmenopausal bleeding 07/08/2013 05/16/20 18 S/P mastectomy, bilateral 07/02/20132012 Pelvic pain 07/08/2012 07/02/2013 Post-menopausal bleeding 02/12/2012 018 Breast cancer 05/09/2010 07/02/2013 Overview: Left 2010. Rt mastectomy 2012 for preventative. Abnormal findings on diagnostic imaging of breas t 05/03/2010 07/26/2010 documented as of this encounter (statuses as of 01/10/2023) [facility] History of Past illness Narrative* Problem Noted Date Diagnosed Date Resolved Date Postmenopausal bleeding 07/08/201305/07 S/P mastectomy, bilateral 07/02/2013 Pelvic pain 07/08/2012 07/02/2013 Post-menopausal bleeding 02/12/201204/2018 Breast cancer 05/09/2010 07/02/2013 Overview: Left 2010. Rt mastectomy 2012 for preventative. Abnormal findings on diagnos tic imaging of breast 05/03/2010 07/26/2010 documented as of this encounter (statuses as of 01/21/2023) [facility] History of Past illness Narrative* Problem Noted Date Diagnosed Date Resolved Date Postmenopausal bleeding 07/08/201305/07 S/P mastectomy, bilateral 07/02/2013 Pelvic pain 07/08/2012 07/02/2013 Post-menopausal bleeding 02/12/201204/2018 Breast cancer 05/09/2010 07/02/2013 Overview: Left 2010. Rt mastectomy 2012 for preventative. Abnormal findings on diagnos tic imaging of breast 05/03/2010 07/26/2010 documented as of this encounter (statuses as of 02/19/2023) [facility] History of Past illness Narrative* Problem Noted Date Diagnosed Date Resolved Date Postmenopausal bleeding 07/08/201305/07 S/P mastectomy, bilateral 07/02/2013 Pelvic pain 07/08/2012 07/02/2013 Post-menopausal bleeding 02/12/201204/2018 Breast cancer 05/09/2010 07/02/2013 Overview: Left 2010. Rt mastectomy 2012 for preventative. Abnormal findings on diagnos tic imaging of breast 05/03/2010 07/26/2010 documented as of this encounter (statuses as of 05/10/2023) [facility] Diagnosis Sinus headache Headache Hypertension, unspecified type [facility] Diagnosis Bladder irritability Other specified disorders of bladder [facility] Diagnosis Essential hypertension- Primary Unspecified essential hypertension Screening for diabetes mellitus (DM) Screening for diabetes mellitus Encounter for immunization Need for other specified prophylactic vaccination against single bacterial disease Vitamin D deficiency Unspecified vitamin D deficiency 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, unspecified whether recurrent (HCC) Bladder irritability Other specified disorders of bladder Urge incontinence Osteopenia, unspecified location Encounter for screening for osteoporosis Special screening for osteoporosis Asymptomatic postmenopausal status [facility]* Diagnosis 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, unspecified whether recurrent (HCC) [facility] Diagnosis Anxiety and depression Dysthymic disorder [facility] Diagnosis Anxiety and depression Dysthymic disorder [facility]* Diagnosis Hypertension, unspecified type documented in this encounter [facility] note* Diagnosis Essential hypertension- Primary Unspecified essential hypertension 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, unspecified whether recurrent (HCC) Vitamin D deficiency Unspecified vitamin D deficiency History of breast cancer Personal history of malignant neoplasm of breast ER+ (estrogen receptor positive status) Estrogen receptor positive status [ER+] Encounter for therapeutic drug monitoring Screening for lipid disorders [facility]* Diagnosis Asymptomatic postmenopausal status documented in this encounter [facility] Reason for Referral Specialty Diagnoses / Procedures Referred By Nola t Referred To Contact MR IMAGING Diagnoses History of breast cancer ER+ (estrogen receptor positive status) Procedures MRI BREAST WO/W IVCON BILATERAL MRI BREAST WITHOUT&WITH CONTRAST W/CAD BILATERAL Jemima Rosa APRN.[employer] [address] [place] [address] Mr Imaging Referral ID Status Reason Start Date Expiration Date Visits Requested Visits Authorized [id number] Authorized Auto-Generat ed Referral 01/20/2023 02/19/2024 1 1 Summary Purpose Family History No Family History Records Found Advance Directives No Advanced Directives Records Found Additional Source Comments Source Comments (unrecognize d section and content) In the event this informatio n is protected by the Federal Confidentiality of Alcohol and Drug Abuse Patient Records regulations: The Federal rules restrict any use of the information to criminally investigate or prosecute any alcohol or drug abuse patient.[facility] event this information is protected by the Federal Confidentiality of Alcohol and Drug Abuse Patient Records regulations: The Federal rules restrict any use of the information to criminally investigate or prosecute any alcohol or drug abuse patient.[facility] the event this information is protected by the Federal Confidentiality of Alcohol and Drug Abuse Patient Records regulations: The Federal rules restrict any use of the information to criminally investigate or prosecute any alcohol or drug abuse patient.[facility] the event this information is protected by the Federal Confidentiality of Alcohol and Drug Abuse Patient Records regulations: The Federal rules restrict any use of the information to criminally investigate or prosecute any alcohol or drug abuse patient.[facility] the event this information is protected by the Federal Confidentiality of Alcohol and Drug Abuse Patient Records regulations: The Federal rules restrict any use of the information to criminally investigate or prosecute any alcohol or drug abuse patient.[facility] the event this information is protected by the Federal Confidentiality of Alcohol and Drug Abuse Patient Records regulations: The Federal rules restrict any use of the information to criminally investigate or prosecute any alcohol or drug abuse patient.[facility] the event this information is protected by the Federal Confidentiality of Alcohol and Drug Abuse Patient Records regulations: The Federal rules restrict any use of the information to criminally investigate or prosecute any alcohol or drug abuse patient.[facility] the event this information is protected by the Federal Confidentiality of Alcohol and Drug Abuse Patient Records regulations: The Federal rules restrict any use of the information to criminally investigate or prosecute any alcohol or drug abuse patient.[facility] the event this information is protected by the Federal Confidentiality of Alcohol and Drug Abuse Patient Records regulations: The Federal rules restrict any use of the information to criminally investigate or prosecute any alcohol or drug abuse patient.[facility] the event this information is protected by the Federal Confidentiality of Alcohol and Drug Abuse Patient Records regulations: The Federal rules restrict any use of the information to criminally investigate or prosecute any alcohol or drug abuse patient.[facility] the event this information is protected by the Federal Confidentiality of Alcohol and Drug Abuse Patient Records regulations: The Federal rules restrict any use of the information to criminally investigate or prosecute any alcohol or drug abuse patient.[facility] Reason for Visit (unrecogniz ed section and content) Reason Onset Date Comments Refill Request 11/02/2021 Reason Onset Date Comments Refill Request 11/10/2021 Reason Comments Medicare Wellness Exam Reason Onset Date Comments Refill Request 10/23/2022 Reason Onset Date Comments Refill Request 11/13/2022 Reason Onset Date Comments Refill Request 01/09/2023 Reason Comments F/U 6 months Reason Comments Results Care Teams (unrecognized sec tion and content) Procedure Manager Relationship Specialty Start Date End Date Anna Chapman MD [address] [place], [place] [id number] PCP - General Internal Medicine 11/30/10 Procedure Manager Relationship Specialty Start Date End Date Anna Chapman MD [address] [place], [place] [id number] PCP - General Internal Medicine 11/30/10 Procedure Manager Relationship Specialty Start Date End Date Anna Chapman MD [address] [place], [place] [id number] PCP - General Internal Medicine 11/30/10 Procedure Manager Relationship Specialty Start Date End Date Anna Chapman MD [address] [place] [address] PCP - General Internal Medicine 11/30/10 Procedure Manager Relationship Specialty Start Date End Date Anna Chapman MD [address] [place] [address] PCP - General Internal Medicine 11/30/10 Procedure Manager Relationship Specialty Start Date End Date Anna Chapman MD [address] [place] [address] PCP - General Internal Medicine 11/30/10 Procedure Manager Relationship Specialty Start Date End Date Anna Chapman MD [address] [place] [address] PCP - General Internal Medicine 11/30/10 Procedure Manager Relationship Specialty Start Date End Date Anna Chapman MD [address] [place] [address] PCP - General Internal Medicine 11/30/10 Procedure Manager Relationship Specialty Start Date End Date Anna Chapman MD [address] [place] [address] PCP - General Internal Medicine 11/30/10 INFORMATION SOURCE (unrecogn ized section and content) FOR RECORDS PERTAINING TO PATIENTS WHO ARE OR HAVE BEEN ENROLLED IN A CHEMICAL DEPENDENCY/SUBSTANCEABUSE PROGRAM, SOME INFORMATION MAY BE OMITTED. This clinical summary was aggregated from multiple sources. Caution should be exercised in using it in the provision of clinical care. This summary normalizes information from multiple sources, and as a consequence, information in this document may materially change the coding, format and clinical context of patient data. In addition, data may be omitted in some cases. CLINICAL DECISIONS SHOULD BE BASED ON THE PRIMARY CLINICAL RECORDS. [facility], [facility]. provides no warranty or guarantee of the accuracy or completeness of information in this document.
== END | disposition home or self-care (01) ==
LOC: MRI 12:40
PROVIDERS: PCP Internal Medicine; Referring Provider Anesthesiology Pain Medicine; Visit Provider Anesthesiology Pain Medicine
DX: M54.14 Radiculopathy, thoracic region (principal)
CPT/HCPCS: 72146

== ENCOUNTER → 2023-11-25 | Outpatient (CLI) | payer MEDICARE, SELFPAY ==
[2023-11-25 18:00] LABS: Amphetamine Urine VISTA NEGATIVE (<1000 ng/mL); Barbiturate Urine VISTA NEGATIVE (< 200 ng/mL); Benzodiazepine Urine VISTA NEGATIVE (< 200 ng/mL); Cocaine Urine VISTA NEGATIVE (< 300 ng/mL); Ecstacy Urine VISTA NEGATIVE (< 500 ng/mL); Methadone Urine VISTA NEGATIVE (< 300 ng/mL); PCP Urine VISTA NEGATIVE (< 25 ng/mL); THC Urine VISTA NEGATIVE (< 50 ng/mL); Vista UDS pH Range 6
== END | disposition home or self-care (01) ==
LOC: LAB 16:22
PROVIDERS: PCP Internal Medicine; Referring Provider Anesthesiology Pain Medicine; Visit Provider Anesthesiology Pain Medicine
DX: F11.20 Opioid dependence, uncomplicated (principal)
CPT/HCPCS: 80307

== ENCOUNTER → 2025-03-29 | Outpatient (CLI) | payer OTHER, SELFPAY ==
[2025-03-29 22:09] LABS: Barbiturate Urine NEGATIVE (< 200 ng/mL); Benzodiazepine Urine NEGATIVE (< 200 ng/mL); PCP Urine NEGATIVE (< 25 ng/mL); THC Urine NEGATIVE (< 50 ng/mL)
== END | disposition home or self-care (01) ==
PROVIDERS: PCP Internal Medicine; Referring Provider Anesthesiology Pain Medicine; Visit Provider Anesthesiology Pain Medicine
DX: F11.20 Opioid dependence, uncomplicated (principal)
CPT/HCPCS: 80307